=== PATIENT | female | born 1950 | race Two or more races ===

== ENCOUNTER → 2021-06-29 12:13 | Outpatient (BNVA) | payer OTHER, SELFPAY | PROVIDERS: Visit Provider Hospitalist | DX: G47.33 Obstructive sleep apnea (adult) (pediatric) (principal); J98.4 Other disorders of lung; J45.40 Moderate persistent asthma, uncomplicated; R51.9 Headache, unspecified | CPT/HCPCS: 99202 ==

== ENCOUNTER → 2021-07-27 13:30 | Outpatient (REF) | payer OTHER, SELFPAY | LOC: HO.SL 13:30 | PROVIDERS: Visit Provider Hospitalist | DX: G47.33 Obstructive sleep apnea (adult) (pediatric) (principal) | CPT/HCPCS: 95806 ==

== ENCOUNTER 2021-09-27 10:11 | Emergency (ER) | payer OTHER, SELFPAY ==
--- NOTE | ~2021-09-27 | CT_ITS ---
EXAMINATION: CT HEAD WITHOUT CONTRAST CLINICAL INFORMATION: Weakness, dizziness. COMPARISON: None TECHNIQUE: Contiguous axial imaging was performed from the skull base to vertex without intravenous administration of contrast. This CT examination was performed using dose optimization techniques as appropriate, variously including the following: *Automated exposure control *Adjustment of mA and/or kV according to patient size (this includes techniques or standardized protocols for targeted exams where dose is matched to indication/reason for exam; i.e. extremities or head) *Use of iterative reconstruction technique DLP: 588 mGy-cm FINDINGS: There is no evidence of acute intracranial hemorrhage or territorial infarction. No abnormal mass effect or midline shift is seen. Hypoattenuation with loss of veloz-white differentiation mild encephalomalacia in the left frontal lobe which could represent a remote infarct or post-surgical change. Otherwise, the veloz to white matter differentiation is well preserved. No extra-axial fluid collections are identified. The ventricles are normal in size. There is no abnormal attenuation within the brain parenchyma. Post-surgical change at the left frontotemporal calvarium. The osseous structures and soft tissues are otherwise normal. The mastoid air cells and visualized portions of the paranasal sinuses are well aerated. CT/CT head/brain wo con IMPRESSION: No acute intracranial hemorrhage or mass effect. Left frontotemporal calvarial post-surgical change with adjacent encephalomalacia and loss of veloz-white differentiation which could represent a remote infarct versus post-surgical change. Otherwise, the veloz-white differentiation is maintained.
--- NOTE | ~2021-09-27 | XR_ITS ---
EXAMINATION: XR CHEST CLINICAL INFORMATION: Weakness, dizziness COMPARISON: None TECHNIQUE: 2 views of the chest were obtained. FINDINGS: Lungs are clear. No focal consolidation or mass. Normal pulmonary vascularity. No pleural effusion or pneumothorax. Normal heart size. Osteopenia and mild degenerative changes of the thoracic spine. XR/XR chest 2V IMPRESSION: No acute pulmonary disease.
[2021-09-27 10:19] VITALS: BP 179/83; BP 188/90; PULSE 85; PULSE 98; RESP 18; TEMP 36.7; O2SAT 97; O2SAT 98; BMI 39.8
--- NOTE | 2021-09-27 10:19 | ED_ITS ---
HPI - General Adult General Chief complaint: Weakness Stated complaint: WEAKNESS,HBP Time Seen by Provider: 09/27/21 10:19 Source: patient and EMS Mode of arrival: EMS Limitations: no limitations History of Present Illness HPI narrative: Patient is a 71 year old female presenting to the emergency department today with weakness. Patient states that she has an extensive history of dizziness and takes meclizine. Patient states that this morning, she felt more weak and has been very stressed. Patient states that her son who was in his 30s, just and his is today. Patient denies any lightheadedness, abdominal pain, nausea, vomiting, fever, chills, blurry vision, double vision, loss of vision, chest pain, difficulty breathing, shortness of breath, back pain, night sweats, pain with urination, increased urinary frequency, increased urinary urgency, blood in her urine or stool, syncope or a near syncopal episode, recent trauma or falls, bowel incontinence, bladder incontinence, bowel retention, bladder retention, or any other complaints at this time. Onset (ago): hour(s) Severity: mild Severity scale (1-10): 1 Relieving factors: none Exacerbating factors: none Associated symptoms: denies other symptoms Treatments prior to arrival: none Related Data Home Medications Medication Instructions Recorded Confirmed atorvastatin 10 mg tablet 10 mg PO DAILY 06/29/21 betamethasone dipropionate 0.05 % topical 06/29/21 topical ointment calcipotriene 0.005 % topical topical 06/29/21 ointment cholecalciferol (vitamin D3) 25 25 mcg PO DAILY 06/29/21 mcg (1,000 unit) capsule cyanocobalamin (vitamin B-12) 1,000 mcg PO DAILY 06/29/21 1,000 mcg tablet (Vitamin B-12) fluticasone furoate 100 1 ea inhalation DAILY 06/29/21 mcg-vilanterol 25 mcg/dose inhalation powder (Breo Ellipta) folic acid 1 mg tablet 1 mg PO DAILY 06/29/21 glucosamine sulfate 500 1 cap PO DAILY 06/29/21 mg-chondroitin 250 mg-msm 250 mg capsule latanoprost 0.005 % eye drops 0 drp ophthalmic (eye) 06/29/21 lorazepam 1 mg tablet 0.5 mg PO BID PRN anxiety 06/29/21 meclizine 25 mg tablet 25 mg PO BEDTIME 06/29/21 methotrexate sodium 2.5 mg tablet 15 mg PO QWEEK 06/29/21 Previous Rx's Medication Instructions Recorded albuterol sulfate 90 mcg/actuation 2 puff inhalation QID PRN 06/29/21 aerosol inhaler (Ventolin HFA) shortness of breath or wheezing 30 days #18 grams montelukast 10 mg tablet 10 mg PO DAILY 30 days #30 tabs 06/29/21 cephalexin 500 mg capsule 500 mg PO Q6H 7 days #28 caps 09/27/21 Allergies Allergy/AdvReac Type Severity Reaction Status Date / Time Iodinated Contrast Media Allergy Shortness Verified 09/27/21 10:28 [Contrast Dye] of Breath SEAFOOD Allergy Severe HIVES Uncoded 06/29/21 13:01 Review of Systems Constitutional: Constitutional: Reports no additional constitutional complaints, Denies chills, Denies fever(s), Denies night sweats and Reports weakness Eyes: Eyes: Reports no additional eye complaints, Denies blurry vision, Denies change in vision, Denies diplopia, Denies eye discharge, Denies loss of vision and Denies eye pain ENT: Denies dizziness Cardiovascular: Cardiovascular: Reports no additional cardiovascular complaints, Denies chest pain, Denies lightheadedness, Denies Loss of Consciousness and Denies dyspnea Respiratory: Respiratory: Reports no additional respiratory complaints and Denies dyspnea Gastrointestinal: Gastrointestinal: Reports no additional gastrointestinal complaints, Denies abdominal pain, Denies melena, Denies hematochezia, Denies change in bowel habits and Denies change in stool character Genitourinary: Genitourinary: Denies hematuria, Denies urinary frequency, Denies dysuria, Denies urinary incontinence, Denies urinary hesitancy and Denies urinary urgency Musculoskeletal: Musculoskeletal: Reports no additional musculoskeletal complaints, Denies numbness and Denies tingling Neurologic: Denies dizziness, Denies loss of vision, Denies numbness, Denies tingling and Reports weakness Psychiatric: Psychiatric: Reports no additional psychiatric complaints Endocrine: Endocrine: Reports no additional endocrine complaints Hematologic/Lymphatic: Hematologic/Lymphatic: Reports no additional hematologic/lymphatic complaints Allergic/Immunologic: Allergic/Immunologic: Reports no additional allergic/immunologic complaints PMFSH Past Medical History Attestation statement: The following information was validated with the patient. Source: old records reviewed Medical History Psoriasis Psoriasis Pulmonary embolism, bilateral Social History Social History Alcohol intake: never Patient Tobacco Use Status: Never used Tobacco Use of substances other than those prescribed or required for medical reasons: No Advance Directives: No Advance Directives Information Provided: No Physical Exam ED Vital Signs: Vital Signs - 24 hr 09/27/21 10:19 09/27/21 12:21 Temperature 98.1 F Pulse Rate 85 60 Respiratory Rate 18 17 Blood Pressure 179/83 H 160/58 H Pulse Oximetry 97 97 Oxygen Delivery Method Room Air Room Air BMI result Body Mass Index 39.8 Const General: cooperative, no acute distress, alert and awake Nutritional Appearance: well nourished Orientation/consciousness: patient oriented x3 Limitations: no limitations HENMT Head: Yes normal to inspection and Yes atraumatic Ears: hearing grossly normal bilaterally and external ears normal General nose exam: Normal external nose present, no nasal discharge noted and no epistaxis Face and sinus: Yes normal facial exam, No abrasion and No laceration Mouth: Normal oral and palatal mucosa present, no drooling and no muffled voice Eyes General: appearance normal, both eyes and all related structures Periorbital: periorbital findings normal Eyelids: Yes eyelids normal Conjunctivae: conjunctivae normal Pupils: Equal, round and reactive pupils present EOM: EOMs intact bilaterally Neck Neck: Yes normal visual inspection, Yes full ROM and Yes no lymphadenopathy Chest Chest palpation & inspection: normal inspection of the chest Resp Effort & Inspection: normal respiratory effort and able to speak in complete sentences Auscultation: clear to auscultation bilaterally Cardio Rate: regular rate Rhythm: regular rhythm GI Inspection: Yes normal to inspection Neuro General: patient oriented x3 and moves all extremities Cranial nerves: Yes Equal, round and reactive pupils present Cognition (Neuro): normal cognition Motor exam (neuro): 5/5 motor strength present throughout Sensory Exam: Normal double simultaneous stimulation for sensation Coordination: [id number] test normal Extrem General: Yes normal to inspection, Yes full ROM and Yes capillary refill normal Psych Appearance: grossly normal Mental Status: mental status grossly normal Affect: normal affect Attitude: cooperative Thought process: Normal thought process present Thought content: Normal thought content present Insight: Good insight present (Psych) Medical Decision Making MDM Narrative Medical decision making narrative: Patient is a 71 year old female presenting to the emergency department today with weakness. Patient's physical exam was unremarkable. Patient's blood work was unremarkable. Patient's urine showed an acute urinary tract infection. Patient's EKG was unremarkable. Patient's chest x-ray showed no acute process. Patient's head CT showed evidence of a previous surgery which the patient confirmed in her history. I explained my physical exam findings as well as all test results to the patient. I answered all questions asked by the patient. I stressed the importance of the patient taking her medication as prescribed. I stressed the importance of the patient following up with her primary care provider. I stressed the importance of the patient returning to the emergency department immediately if her symptoms were to worsen or if she were to develop any dizziness, shortness of breath, difficulty breathing, chest pain, blurry vision, loss of vision, nausea, vomiting, abdominal pain, fever, chills, back pain, or any other complaints. Patient verbalized agreement and understanding with this treatment plan and discharge. Differential Diagnosis Differential Diagnosis: weakness, UTI Medical Records Medical records reviewed: Yes I reviewed the patient's medical records. Lab Data Lab results reviewed: Yes I reviewed the patient's lab results. Result diagrams: 09/27/21 11:03 09/27/21 11:03 Labs: Lab Results 09/27/21 09/27/21 09/27/21 Range/Units 10:33 11:03 11:03 WBC 7.3 (4.8-10.8) X10*3/uL RBC 4.24 (4.20-5.50) X10*6/uL Hgb 12.8 (12.0-16.0) g/dl Hct 39.1 (37.0-47.0) % MCV 92.2 (80.0-98.0) fL MCH 30.2 (27.0-33.0) pg MCHC 32.7 (31.0-35.0) g/dl RDW 13.0 (11.0-16.0) % Plt Count 268 (160-400) X10*3/uL MPV 10.5 (9.4-12.3) fL Immature Gran % (Auto) 0.4 (0.0-0.4) % Neut % (Auto) 70.8 (45-73) % Lymph % (Auto) 17.9 L (20-40) % [place] % (Auto) 9.2 (2-11) % Eos % (Auto) 1.0 (0-4) % Baso % (Auto) 0.7 (0-2) % Lymph # (Auto) 1.3 (1.2-4.9) X10*3/uL [place] # (Auto) 0.7 (0.1-1.2) X10*3/uL Eos # (Auto) 0.1 (0.0-0.4) X10*3/uL Baso # (Auto) 0.1 (0.0-0.2) X10*3/uL Abs Immat Gran (auto) 0.03 (0.00-0.03) X10*3/uL Absolute Neuts (auto) 5.1 (2.0-8.3) x10*3/uL Absolute Nucleated RBC 0.000 (0.0-0.012) X10*3/uL Nucleated RBC % (auto) 0.0 (0.0-0.2) /100WBC Sodium 138 (135-145) mmol/L Potassium 4.8 (3.3-5.1) mmol/L Chloride 105 (96-108) mmol/L Carbon Dioxide 27 (22-29) mmol/L Anion Gap 11 L (12-20) BUN 24 H (9-16) mg/dL Creatinine 0.90 (0.5-1.4) mg/dL Estim Creat Clear Calc 57.4 Estimated GFR > 60 Random Glucose 99 (60-115) mg/dL Calcium 9.4 (8.4-10.2) mg/dL Magnesium 1.9 (1.6-2.6) mg/dL Total Bilirubin 0.3 (0.0-1.0) mg/dL AST 21 (5-31) U/L ALT 20 (0-31) U/L Alkaline Phosphatase 62 (39-117) U/L Troponin I High Sens (<3.5-17.0) ng/L Total Protein 7.3 (6.5-8.0) g/dL Albumin 4.3 (3.5-5.0) g/dL Urine Color Urine Appearance Urine pH (5.0-8.0) Ur Specific [place] (1.005-1.025) Urine Protein (NEG-TRACE) MG/DL Urine Glucose (UA) (NEG) MG/DL Urine Ketones (NEG) MG/DL Urine Blood (NEG) Urine Nitrite (NEG) Ur Leukocyte Esterase (NEG) Urine RBC (0) /HPF Urine WBC (0-4) /HPF Ur Squamous Epith Cells /LPF Urine Bacteria /LPF COVID-19 ([facility]) Negative (Negative) COVID-19 Clin Com See Note 09/27/21 09/27/21 Range/Units 11:03 12:26 WBC (4.8-10.8) X10*3/uL RBC (4.20-5.50) X10*6/uL Hgb (12.0-16.0) g/dl Hct (37.0-47.0) % MCV (80.0-98.0) fL MCH (27.0-33.0) pg MCHC (31.0-35.0) g/dl RDW (11.0-16.0) % Plt Count (160-400) X10*3/uL MPV (9.4-12.3) fL Immature Gran % (Auto) (0.0-0.4) % Neut % (Auto) (45-73) % Lymph % (Auto) (20-40) % [place] % (Auto) (2-11) % Eos % (Auto) (0-4) % Baso % (Auto) (0-2) % Lymph # (Auto) (1.2-4.9) X10*3/uL [place] # (Auto) (0.1-1.2) X10*3/uL Eos # (Auto) (0.0-0.4) X10*3/uL Baso # (Auto) (0.0-0.2) X10*3/uL Abs Immat Gran (auto) (0.00-0.03) X10*3/uL Absolute Neuts (auto) (2.0-8.3) x10*3/uL Absolute Nucleated RBC (0.0-0.012) X10*3/uL Nucleated RBC % (auto) (0.0-0.2) /100WBC Sodium (135-145) mmol/L Potassium (3.3-5.1) mmol/L Chloride (96-108) mmol/L Carbon Dioxide (22-29) mmol/L Anion Gap (12-20) BUN (9-16) mg/dL Creatinine (0.5-1.4) mg/dL Estim Creat Clear Calc Estimated GFR Random Glucose (60-115) mg/dL Calcium (8.4-10.2) mg/dL Magnesium (1.6-2.6) mg/dL Total Bilirubin (0.0-1.0) mg/dL AST (5-31) U/L ALT (0-31) U/L Alkaline Phosphatase (39-117) U/L Troponin I High Sens < 3.5 (<3.5-17.0) ng/L Total Protein (6.5-8.0) g/dL Albumin (3.5-5.0) g/dL Urine Color YELLOW Urine Appearance HAZY Urine pH 6.5 (5.0-8.0) Ur Specific [place] <= 1.005 (1.005-1.025) Urine Protein NEG (NEG-TRACE) MG/DL Urine Glucose (UA) NEG (NEG) MG/DL Urine Ketones NEG (NEG) MG/DL Urine Blood NEG (NEG) Urine Nitrite NEG (NEG) Ur Leukocyte Esterase 2+ H (NEG) Urine RBC 0 (0) /HPF Urine WBC 5-9 H (0-4) /HPF Ur Squamous Epith Cells 1+ /LPF Urine Bacteria TRACE /LPF COVID-19 ([facility]DRA) (Negative) COVID-19 Clin Com Imaging Data Chest x-ray: Attestation: I personally reviewed and interpreted this imaging study as follows: My impression: No acute process. Radiologist's impression: EXAMINATION: XR CHEST CLINICAL INFORMATION: Weakness, dizziness COMPARISON: None TECHNIQUE: 2 views of the chest were obtained. FINDINGS: Lungs are clear. No focal consolidation or mass. Normal pulmonary vascularity. No pleural effusion or pneumothorax.? Normal heart size. Osteopenia and mild degenerative changes of the thoracic spine. XR/XR chest 2V IMPRESSION: No acute pulmonary disease. Dictated By: Matthew Albright MD Signed By: Electronically signed by Matthew Albright MD 09/27/[address] scan - head: Attestation: I personally reviewed and interpreted this imaging study as follows: My impression: Post-surgical changes but no acute process. Radiologist's impression: EXAMINATION: CT HEAD WITHOUT CONTRAST CLINICAL INFORMATION: Weakness, dizziness.? COMPARISON: None TECHNIQUE: Contiguous axial imaging was performed from the skull base to vertex without intravenous administration of contrast. This CT examination was performed using dose optimization techniques as appropriate, variously including the following: *Automated exposure control *Adjustment of mA and/or kV according to patient size (this includes techniques or standardized protocols for targeted exams where dose is matched to indication/reason for exam; i.e. extremities or head) *Use of iterative reconstruction technique DLP: 588 mGy-cm FINDINGS: There is no evidence of acute intracranial hemorrhage or territorial infarction. No abnormal mass effect or midline shift is seen. Hypoattenuation with loss of veloz-white differentiation mild encephalomalacia in the left frontal lobe which could represent a remote infarct or post-surgical change. Otherwise, the veloz to white matter differentiation is well preserved. No extra-axial fluid collections are identified. The ventricles are normal in size. There is no abnormal attenuation within the brain parenchyma. Post-surgical change at the left frontotemporal calvarium. The osseous structures and soft tissues are otherwise normal. The mastoid air cells and visualized portions of the paranasal sinuses are well aerated. ? CT/CT head/brain wo con IMPRESSION: No acute intracranial hemorrhage or mass effect. ? Left frontotemporal calvarial post-surgical change with adjacent encephalomalacia and loss of vleoz-white differentiation which could represent a remote infarct versus post-surgical change. Otherwise, the veloz-white differentiation is maintained. Dictated By: Jt Terry MD Signed By: Electronically signed by Jt Terry MD 09/27/21 1232 ECG Data Attestation: I personally reviewed and interpreted this ECG as follows: Prior ECG tracings: available for review Interpretation: Vent. Rate: 068 BPM ? ? Atrial Rate: 068 BPM P-R Int: 136 ms? QRS Dur: 078 ms QT Int: 400 ms ? ? ? P-R-T Axes: 037 029 051 degrees QTc Int: 425 ms ? Sinus rhythm with Premature atrial complexes Otherwise normal ECG When compared with ECG of 01-JUL-2016 10:00, Premature atrial complexes are now Present DD/ [id number] Discharge Plan Discharge Clinical Impression: Acute UTI Patient Disposition: Home, Self-Care Instructions: Urinary Tract Infection in Older Adults (ED) Additional Instructions: Follow up with your primary care provider. Return to the emergency department immediately if your symptoms worsen or if you develop any dizziness, shortness of breath, difficulty breathing, chest pain, blurry vision, loss of vision, nausea, vomiting, abdominal pain, fever, chills, back pain, or any other complaints. Prescriptions: New cephalexin 500 mg capsule 500 mg PO Q6H 7 Days Qty: 28 0RF No Action folic acid 1 mg tablet 1 mg PO DAILY latanoprost 0.005 % drops 0 drp ophthalmic (eye) Breo Ellipta 100-25 mcg/dose blister with device 1 ea inhalation DAILY cyanocobalamin (vitamin B-12) [Vitamin B-12] 1,000 mcg tablet 1,000 mcg PO DAILY atorvastatin 10 mg tablet 10 mg PO DAILY lorazepam 1 mg tablet 0.5 mg PO BID PRN (Reason: anxiety) meclizine 25 mg tablet 25 mg PO BEDTIME calcipotriene 0.005 % ointment topical betamethasone dipropionate 0.05 % ointment topical methotrexate sodium 2.5 mg tablet 15 mg PO QWEEK cholecalciferol (vitamin D3) 25 mcg (1,000 unit) capsule 25 mcg PO DAILY glucosamine [id number] 500-250-250 mg capsule 1 cap PO DAILY albuterol sulfate [Ventolin HFA] 90 mcg/actuation HFA aerosol inhaler 2 puff inhalation QID PRN (Reason: shortness of breath or wheezing) 30 Days Qty: 18 11RF montelukast 10 mg tablet 10 mg PO DAILY 30 Days Qty: 30 11RF Referrals: [facility] Family Medicine [Provider Group] (Call to establish and follow up with a primary care provider. If you already have a primary care provider, please follow up with them. ) [facility] [Provider Group] (Call to establish and follow up with a primary care provider. If you already have a primary care provider, ple ase follow up with them. ) [facility] [Provider Group] (Call to establish and follow up with a primary care provider. If you already have a primary care provider, please follow up with them. ) Interventions: ED Discharge Assessment Last Done: 09/27/21 13:03 Discharge Date/Time: 09/27/21 13:04 Print Language: Italian
--- NOTE | 2021-09-27 10:26 | ECG_ITS ---
Test Reason : weakness Blood Pressure : / mmHG Vent. Rate : 068 BPM Atrial Rate : 068 BPM P-R Int : 136 ms QRS Dur : 078 ms QT Int : 400 ms P-R-T Axes : 037 029 051 degrees QTc Int : 425 ms Sinus rhythm with Premature atrial complexes Otherwise normal ECG When compared with ECG of 01-JUL-2016 10:00, Premature atrial complexes are now Present Referred By: Kandis Dominguez Electronically Signed By:DOUGIE DOTY MD
[2021-09-27 10:58] LABS: COVID-19 Test Negative (Negative); IDNOW Serial# 16C4AD1C
[2021-09-27 11:08] LABS: MANUAL DIFF FLAG NO
[2021-09-27 11:10] LABS: Basophils Absolute Auto 0.1 X10*3/uL (0.0-0.2); Basophils Percent Auto 0.7 % (0-2); Eosinophils Absolute Auto 0.1 X10*3/uL (0.0-0.4); Hematocrit 39.1 % (37.0-47.0); Hemoglobin 12.8 g/dl (12.0-16.0); Imm Gran Abs Auto 0.03 X10*3/uL (0.00-0.03); Imm Gran Pct Auto 0.4 % (0.0-0.4); Lymphocytes Absolute Auto 1.3 X10*3/uL (1.2-4.9); Lymphocytes Percent Auto 17.9 % (20-40); Mean Corpuscular HGB Conc 32.7 g/dl (31.0-35.0); Mean Corpuscular Hemoglobin 30.2 pg (27.0-33.0); Mean Corpuscular Volume 92.2 fL (80.0-98.0); Mean Platelet Volume 10.5 fL (9.4-12.3); Monocytes Absolute Auto 0.7 X10*3/uL (0.1-1.2); Monocytes Percent Auto 9.2 % (2-11); Neutrophils Absolute Auto 5.1 x10*3/uL (2.0-8.3); Neutrophils Percent Auto 70.8 % (45-73); Platelet Count 268 X10*3/uL (160-400); Red Blood Count 4.24 X10*6/uL (4.20-5.50); White Blood Count 7.3 X10*3/uL (4.8-10.8)
--- NOTE | 2021-09-27 11:27 | PC.NURSE ---
Pt alert/oriented, neuros intact PERRLA bilat. General weakness since this morning. Per daughter, pt hx anxiety and panic attacks with recent life stressor of grandson's passing symptoms seem to be related to this event. NSR on monitor with occasional PACs. IV established labs drawn.
[2021-09-27 11:32] LABS: Alanine Aminotransferase 20 U/L (0-31); Albumin Level 4.3 g/dL (3.5-5.0); Alkaline Phosphatase 62 U/L (39-117); Anion Gap 11 (12-20); Aspartate Amino Transferase 21 U/L (5-31); Bilirubin Total 0.3 mg/dL (0.0-1.0); Blood Urea Nitrogen 24 mg/dL (9-16); Calcium 9.4 mg/dL (8.4-10.2); Carbon Dioxide 27 mmol/L (22-29); Chloride 105 mmol/L (96-108); Creatinine Clr Calc Pharmacy 57.4; Estimated Glomerular Filt Rate > 60; Glucose Random 99 mg/dL (60-115); Magnesium 1.9 mg/dL (1.6-2.6); Potassium 4.8 mmol/L (3.3-5.1); Sodium 138 mmol/L (135-145); Total Protein 7.3 g/dL (6.5-8.0)
[2021-09-27 11:36] LABS: Troponin-I High Sensitivity < 3.5 ng/L (<3.5-17.0)
[2021-09-27 12:21] VITALS: BP 160/58; PULSE 60; RESP 17; O2SAT 97
[2021-09-27 12:32] LABS: Glucose Urine UA NEG (NEG); Leukocyte Esterase Urine 2+ (NEG); Nitrite Urine NEG (NEG); PH 6.5 (5.0-8.0); Specific Gravity - Urine <= 1.005 (1.005-1.025); UACC Culture Trigger YES; Urine Blood NEG (NEG); Urine Ketones NEG (NEG); Urine Protein NEG (NEG-TRACE)
[2021-09-27 12:34] LABS: Appearance Urine HAZY; Color Urine YELLOW
[2021-09-27 12:44] LABS: Bacteria Urine TRACE /LPF; RBC Urine 0 /HPF (0)
[2021-09-27 12:45] LABS: Squamous Epithelial Cell Urine 1+ /LPF
== END 2021-09-27 13:04 | disposition home or self-care (01) ==
PROVIDERS: Physician Assistant Medical; Emergency Provider Emergency Medicine
DX: N39.0 Urinary tract infection, site not specified (principal); R53.1 Weakness; R42 Dizziness and giddiness; R07.89 Other chest pain; Z20.822 Contact with and (suspected) exposure to COVID-19; Z79.899 Other long term (current) drug therapy
CPT/HCPCS: 70450; 71046; 80053; 81001; 83735; 84484; 85025; 87086; 87502; 87635; 93005; 99284

== ENCOUNTER → 2021-12-29 12:33 | Outpatient (BNVA) | payer OTHER, SELFPAY | PROVIDERS: PCP Internal Medicine; Visit Provider Hospitalist | DX: J45.40 Moderate persistent asthma, uncomplicated (principal); J98.4 Other disorders of lung; J31.0 Chronic rhinitis; R51.9 Headache, unspecified | CPT/HCPCS: 99212 ==

== ENCOUNTER 2022-04-18 15:19 | Emergency (ER) | payer OTHER, SELFPAY ==
--- NOTE | ~2022-04-18 | XR_ITS ---
EXAMINATION: XR CHEST CLINICAL INFORMATION: Cough COMPARISON: Chest x-ray 09/27/2021 TECHNIQUE: Frontal view of the chest was obtained. FINDINGS: The lungs are clear. No airspace consolidation, pleural effusion, or pneumothorax. The cardiomediastinal silhouette is within normal limits. No acute osseous injury. XR/XR chest 1V IMPRESSION: No acute pulmonary disease.
[2022-04-18 15:30] VITALS: BP 196/93; PULSE 89; RESP 18; TEMP 36.3; O2SAT 100; BMI 36.7
--- NOTE | 2022-04-18 15:34 | ECG_ITS ---
Test Reason : DIZZINESS Blood Pressure : / mmHG Vent. Rate : 082 BPM Atrial Rate : 082 BPM P-R Int : 124 ms QRS Dur : 072 ms QT Int : 366 ms P-R-T Axes : 039 018 044 degrees QTc Int : 427 ms Normal sinus rhythm Nonspecific ST abnormality Abnormal ECG When compared with ECG of 27-SEP-2021 10:59, Premature atrial complexes are no longer Present Referred By: Sherly Nice Electronically Signed By:Jerry Hu
--- NOTE | 2022-04-18 15:34 | ED.GENADULT ---
HPI - General Adult General Chief complaint: General Medical <SOPHY Palma - Last Filed: 04/18/22 15:36> Stated complaint: high blood pressure, dizzy, shaky <SOPHY Palma - Last Filed: 04/18/22 15:36> Time Seen by Provider: 04/18/22 16:20 <SOPHY Palma - Last Filed: 04/18/22 15:36> Source: patient <Mahendra Neville MD - Last Filed: 04/19/22 00:59> Mode of arrival: ambulatory <Mahendra Neville MD - Last Filed: 04/19/22 00:59> Limitations: no limitations <Mahendra Neville MD - Last Filed: 04/19/22 00:59> History of Present Illness HPI narrative: Patient history of hypertension on losartan for last 1 year checks her blood pressure daily for last 3 days blood pressures been elevated in 170s range today blood pressure was 196/90 no chest pain no headache patient does have cold symptoms for last 3 days no shortness of breath no palpitation also noticed slight leg edema on arrival today patient blood pressure was 196/93 with pulse rate of 89 <Mahendra Neville MD - Last Filed: 04/19/22 00:59> Related Data Home medications: Home Medications Medication Instructions Recorded Confirmed atorvastatin 10 mg tablet 10 mg PO DAILY 06/29/21 cholecalciferol (vitamin D3) 25 25 mcg PO DAILY 06/29/21 mcg (1,000 unit) capsule cyanocobalamin (vitamin B-12) 1,000 mcg PO DAILY 06/29/21 1,000 mcg tablet (Vitamin B-12) folic acid 1 mg tablet 1 mg PO DAILY 06/29/21 glucosamine sulfate 500 1 cap PO DAILY 06/29/21 mg-chondroitin 250 mg-msm 250 mg capsule latanoprost 0.005 % eye drops 0 drp ophthalmic (eye) 06/29/21 lorazepam 1 mg tablet 0.5 mg PO BID PRN anxiety 06/29/21 meclizine 25 mg tablet 25 mg PO BEDTIME 06/29/21 methotrexate sodium 2.5 mg tablet 15 mg PO QWEEK 06/29/21 albuterol sulfate 2.5 mg/3 mL mg inhalation 12/29/21 (0.083 %) solution for nebulization betamethasone, augmented 0.05 % topical 12/29/21 topical ointment celecoxib 200 mg capsule 200 mg PO DAILY 12/29/21 losartan 50 mg tablet 50 mg PO DAILY 12/29/21 triamcinolone acetonide 0.1 % topical BID PRN 12/29/21 lotion Previous Rx's Medication Instructions Recorded albuterol sulfate 90 mcg/actuation 2 puff inhalation QID PRN 06/29/21 aerosol inhaler (Ventolin HFA) shortness of breath or wheezing 30 days #18 grams montelukast 10 mg tablet 10 mg PO DAILY 30 days #30 tabs 06/29/21 albuterol sulfate 90 mcg/actuation 2 puff inhalation QID PRN 12/29/21 aerosol inhaler (Ventolin HFA) shortness of breath or wheezing 30 days #18 grams fluticasone furoate 100 1 ea inhalation DAILY #60 ea 12/29/21 mcg-vilanterol 25 mcg/dose inhalation powder (Breo Ellipta) fluticasone propionate 50 2 spray intranasal DAILY 30 days 12/29/21 mcg/actuation nasal #15.8 mL spray,suspension loratadine 10 mg tablet (Claritin) 10 mg PO DAILY 30 days #30 tabs 12/29/21 hydrochlorothiazide 25 mg tablet 25 mg PO QAM #30 tabs 04/18/22 <SOPHY Palma - Last Filed: 04/18/22 15:36> Allergies/adverse reactions: Allergies Allergy/AdvReac Type Severity Reaction Status Date / Time Iodinated Contrast Media Allergy Shortness Verified 04/18/22 15:34 [Contrast Dye] of Breath SEAFOOD Allergy Severe HIVES Uncoded 12/29/21 12:58 <SOPHY Palma - Last Filed: 04/18/22 15:36> Review of Systems Review of Systems: Yes all other systems are reviewed and are negative <Mahendra Neville MD - Last Filed: 04/19/22 00:59> PMFSH Past Medical History Medical History: Medical History Asthma Frequent headaches Psoriasis Psoriasis Pulmonary embolism, bilateral Pulmonary scarring <SOPHY Palma - Last Filed: 04/18/22 15:36> Social History Social History: Social History Alcohol intake: never Patient Tobacco Use Status: Never used Tobacco Advance Directives: No Advance Directives Information Provided: No <SOPHY Palma - Last Filed: 04/18/22 15:36> Physical Exam ED Vital Signs: Vital Signs - 24 hr 04/18/22 15:30 04/18/22 17:38 04/18/22 18:33 Temperature 97.4 F 98.1 F Pulse Rate 89 74 Respiratory Rate 18 20 Blood Pressure 196/93 H 179/89 H 157/56 H Pulse Oximetry 100 97 Oxygen Delivery Method Room Air Room Air BMI result Body Mass Index 36.7 <SOPHY Palma - Last Filed: 04/18/22 15:36> Vital Signs - 24 hr 04/18/22 15:30 04/18/22 17:38 04/18/22 18:33 Temperature 97.4 F 98.1 F Pulse Rate 89 74 Respiratory Rate 18 20 Blood Pressure 196/93 H 179/89 H 157/56 H Pulse Oximetry 100 97 Oxygen Delivery Method Room Air Room Air BMI result Body Mass Index 36.7 <Mahendra Neville MD - Last Filed: 04/19/22 00:59> Appearance: Alert. Oriented X3. No acute distress. Eyes: No pallor/icterus ENT: Pharynx normal. Oral Mucosa moist Neck: Normal inspection. Neck supple. CVS: Normal heart rate and rhythm. Pulses normal. Respiratory: No respiratory distress. Equal air entry bilateral, no wheezing/rales/rhonchi Abdomen: Soft and nontender. Bowel sounds are present, no mass palpable, no CVA tenderness Skin: Skin warm and dry. Normal skin color. Normal skin turgor. Extremities: 1= lower extremity edema. No calf tenderness Neuro: Oriented X 3. No motor deficit. No sensory deficit.No cerebellar signs , cranial nerves II-XII intact <Mahendra Neville MD - Last Filed: 04/19/22 00:59> Course Course Course Narrative: RME - 71 yo female with history of HTN on losartan, CHARLES, asthma, headaches who presents to the ER for evaluation of elevated BP at home for the last 3 days. Also reports headaches, runny nose, shakiness and dizziness as well. BP 190s systolic on arrival, compliant with meds. Labs, EKG, CXR, swabs ordered. <SOPHY Palma - Last Filed: 04/18/22 15:36> Medications Administered Discontinued Medications Generic Name Dose Route Start Last Admin Trade Name Freq PRN Reason Stop Dose Admin Hydrochlorothiazide 25 mg 04/18/22 17:27 04/18/22 17:38 Hydrochlorothiazide 25 Mg Tablet PO 04/18/22 17:28 25 mg ONCE ONE Administration Protocol <SOPHY Palma - Last Filed: 04/18/22 15:36> Medications Administered Discontinued Medications Generic Name Dose Route Start Last Admin Trade Name Freq PRN Reason Stop Dose Admin Hydrochlorothiazide 25 mg 04/18/22 17:27 04/18/22 17:38 Hydrochlorothiazide 25 Mg Tablet PO 04/18/22 17:28 25 mg ONCE ONE Administration Protocol <Mahendra Neville MD - Last Filed: 04/19/22 00:59> Medical Decision Making Medical Decision Making MDM Narrative: Patient has slightly elevated blood pressure with leg edema labs were stable will add hydrochlorothiazide to the protocol advised to continue losartan and take hydrochlorothiazide 25 mg daily and follow-up with PCP <Mahendra Neville MD - Last Filed: 04/19/22 00:59> Lab Data MDM Lab Attestation statement: I reviewed the patient's lab results. <Mahendra Neville MD - Last Filed: 04/19/22 00:59> Result Diagrams: 04/18/22 16:21 04/18/22 16:21 <SOPHY Palma - Last Filed: 04/18/22 15:36> Labs: Lab Results 04/18/22 04/18/22 04/18/22 Range/Units 16:21 16:21 16:21 WBC 7.7 (4.8-10.8) X10*3/uL RBC 4.10 L (4.20-5.50) X10*6/uL Hgb 11.9 L (12.0-16.0) g/dl Hct 37.2 (37.0-47.0) % MCV 90.7 (80.0-98.0) fL MCH 29.0 (27.0-33.0) pg MCHC 32.0 (31.0-35.0) g/dl RDW 12.7 (11.0-16.0) % Plt Count 269 (160-400) X10*3/uL MPV 10.3 (9.4-12.3) fL Immature Gran % (Auto) 0.5 H (0.0-0.4) % Neut % (Auto) 65.6 (45-73) % Lymph % (Auto) 23.7 (20-40) % [place] % (Auto) 6.9 (2-11) % Eos % (Auto) 2.5 (0-4) % Baso % (Auto) 0.8 (0-2) % Lymph # (Auto) 1.8 (1.2-4.9) X10*3/uL [place] # (Auto) 0.5 (0.1-1.2) X10*3/uL Eos # (Auto) 0.2 (0.0-0.4) X10*3/uL Baso # (Auto) 0.1 (0.0-0.2) X10*3/uL Abs Immat Gran (auto) 0.04 H (0.00-0.03) X10*3/uL Absolute Neuts (auto) 5.0 (2.0-8.3) x10*3/uL Absolute Nucleated RBC 0.000 (0.0-0.012) X10*3/uL Nucleated RBC % (auto) 0.0 (0.0-0.2) /100WBC Sodium 144 (135-145) mmol/L Potassium 4.1 (3.3-5.1) mmol/L Chloride 110 H (96-108) mmol/L Carbon Dioxide 27 (22-29) mmol/L Anion Gap 11 L (12-20) BUN 19 H (9-16) mg/dL Creatinine 0.88 (0.5-1.4) mg/dL Estim Creat Clear Calc 56.1 Estimated GFR > 60 Random Glucose 99 (60-115) mg/dL Calcium 9.4 (8.4-10.2) mg/dL Magnesium 1.7 (1.6-2.6) mg/dL Total Bilirubin 0.3 (0.0-1.0) mg/dL Direct Bilirubin < 0.2 (0.0-0.5) mg/dL AST 17 (5-31) U/L ALT 16 (0-31) U/L Alkaline Phosphatase 59 (39-117) U/L Troponin I High Sens 6.2 (<3.5-17.0) ng/L B-Natriuretic Peptide (<100) pg/mL Total Protein 7.1 (6.5-8.0) g/dL Albumin 4.2 (3.5-5.0) g/dL Urine Color Urine Appearance Urine pH (5.0-9.0) Ur Specific [place] (1.005-1.025) Urine Protein (Neg-Trace) mg/dL Urine Glucose (UA) (Negative) mg/dL Urine Ketones (Negative) mg/dL Urine Blood (Negative) Urine Nitrite (Negative) Ur Leukocyte Esterase (Negative) COVID-19 (ALEXSANDRA) (Negative) COVID-19 Clin Com Influenza Type A (PADMINI) (Negative) Influenza Type B (PADMINI) (Negative) Influenza A & B Note 04/18/22 04/18/22 04/18/22 Range/Units 16:21 16:21 16:21 WBC (4.8-10.8) X10*3/uL RBC (4.20-5.50) X10*6/uL Hgb (12.0-16.0) g/dl Hct (37.0-47.0) % MCV (80.0-98.0) fL MCH (27.0-33.0) pg MCHC (31.0-35.0) g/dl RDW (11.0-16.0) % Plt Count (160-400) X10*3/uL MPV (9.4-12.3) fL Immature Gran % (Auto) (0.0-0.4) % Neut % (Auto) (45-73) % Lymph % (Auto) (20-40) % [place] % (Auto) (2-11) % Eos % (Auto) (0-4) % Baso % (Auto) (0-2) % Lymph # (Auto) (1.2-4.9) X10*3/uL [place] # (Auto) (0.1-1.2) X10*3/uL Eos # (Auto) (0.0-0.4) X10*3/uL Baso # (Auto) (0.0-0.2) X10*3/uL Abs Immat Gran (auto) (0.00-0.03) X10*3/uL Absolute Neuts (auto) (2.0-8.3) x10*3/uL Absolute Nucleated RBC (0.0-0.012) X10*3/uL Nucleated RBC % (auto) (0.0-0.2) /100WBC Sodium (135-145) mmol/L Potassium (3.3-5.1) mmol/L Chloride (96-108) mmol/L Carbon Dioxide (22-29) mmol/L Anion Gap (12-20) BUN (9-16) mg/dL Creatinine (0.5-1.4) mg/dL Estim Creat Clear Calc Estimated GFR Random Glucose (60-115) mg/dL Calcium (8.4-10.2) mg/dL Magnesium (1.6-2.6) mg/dL Total Bilirubin (0.0-1.0) mg/dL Direct Bilirubin (0.0-0.5) mg/dL AST (5-31) U/L ALT (0-31) U/L Alkaline Phosphatase (39-117) U/L Troponin I High Sens (<3.5-17.0) ng/L B-Natriuretic Peptide (<100) pg/mL Total Protein (6.5-8.0) g/dL Albumin (3.5-5.0) g/dL Urine Color Yellow Urine Appearance Clear Urine pH 6.0 (5.0-9.0) Ur Specific [place] <= 1.005 (1.005-1.025) Urine Protein Negative (Neg-Trace) mg/dL Urine Glucose (UA) Negative (Negative) mg/dL Urine Ketones Negative (Negative) mg/dL Urine Blood Negative (Negative) Urine Nitrite Negative (Negative) Ur Leukocyte Esterase Negative (Negative) COVID-19 (ALEXSANDRA) Negative (Negative) COVID-19 Clin Com See Note Influenza Type A (PADMINI) Negative (Negative) Influenza Type B (PADMINI) Negative (Negative) Influenza A & B Note See Note 04/18/22 Range/Units 16:21 WBC (4.8-10.8) X10*3/uL RBC (4.20-5.50) X10*6/uL Hgb (12.0-16.0) g/dl Hct (37.0-47.0) % MCV (80.0-98.0) fL MCH (27.0-33.0) pg MCHC (31.0-35.0) g/dl RDW (11.0-16.0) % Plt Count (160-400) X10*3/uL MPV (9.4-12.3) fL Immature Gran % (Auto) (0.0-0.4) % Neut % (Auto) (45-73) % Lymph % (Auto) (20-40) % [place] % (Auto) (2-11) % Eos % (Auto) (0-4) % Baso % (Auto) (0-2) % Lymph # (Auto) (1.2-4.9) X10*3/uL [place] # (Auto) (0.1-1.2) X10*3/uL Eos # (Auto) (0.0-0.4) X10*3/uL Baso # (Auto) (0.0-0.2) X10*3/uL Abs Immat Gran (auto) (0.00-0.03) X10*3/uL Absolute Neuts (auto) (2.0-8.3) x10*3/uL Absolute Nucleated RBC (0.0-0.012) X10*3/uL Nucleated RBC % (auto) (0.0-0.2) /100WBC Sodium (135-145) mmol/L Potassium (3.3-5.1) mmol/L Chloride (96-108) mmol/L Carbon Dioxide (22-29) mmol/L Anion Gap (12-20) BUN (9-16) mg/dL Creatinine (0.5-1.4) mg/dL Estim Creat Clear Calc Estimated GFR Random Glucose (60-115) mg/dL Calcium (8.4-10.2) mg/dL Magnesium (1.6-2.6) mg/dL Total Bilirubin (0.0-1.0) mg/dL Direct Bilirubin (0.0-0.5) mg/dL AST (5-31) U/L ALT (0-31) U/L Alkaline Phosphatase (39-117) U/L Troponin I High Sens (<3.5-17.0) ng/L B-Natriuretic Peptide 109 H (<100) pg/mL Total Protein (6.5-8.0) g/dL Albumin (3.5-5.0) g/dL Urine Color Urine Appearance Urine pH (5.0-9.0) Ur Specific [place] (1.005-1.025) Urine Protein (Neg-Trace) mg/dL Urine Glucose (UA) (Negative) mg/dL Urine Ketones (Negative) mg/dL Urine Blood (Negative) Urine Nitrite (Negative) Ur Leukocyte Esterase (Negative) COVID-19 (ALEXSANDRA) (Negative) COVID-19 Clin Com Influenza Type A (PADMINI) (Negative) Influenza Type B (PADMINI) (Negative) Influenza A & B Note <SOPHY Palma - Last Filed: 04/18/22 15:36> Lab Results 04/18/22 04/18/22 04/18/22 Range/Units 16:21 16:21 16:21 WBC 7.7 (4.8-10.8) X10*3/uL RBC 4.10 L (4.20-5.50) X10*6/uL Hgb 11.9 L (12.0-16.0) g/dl Hct 37.2 (37.0-47.0) % MCV 90.7 (80.0-98.0) fL MCH 29.0 (27.0-33.0) pg MCHC 32.0 (31.0-35.0) g/dl RDW 12.7 (11.0-16.0) % Plt Count 269 (160-400) X10*3/uL MPV 10.3 (9.4-12.3) fL Immature Gran % (Auto) 0.5 H (0.0-0.4) % Neut % (Auto) 65.6 (45-73) % Lymph % (Auto) 23.7 (20-40) % [place] % (Auto) 6.9 (2-11) % Eos % (Auto) 2.5 (0-4) % Baso % (Auto) 0.8 (0-2) % Lymph # (Auto) 1.8 (1.2-4.9) X10*3/uL [place] # (Auto) 0.5 (0.1-1.2) X10*3/uL Eos # (Auto) 0.2 (0.0-0.4) X10*3/uL Baso # (Auto) 0.1 (0.0-0.2) X10*3/uL Abs Immat Gran (auto) 0.04 H (0.00-0.03) X10*3/uL Absolute Neuts (auto) 5.0 (2.0-8.3) x10*3/uL Absolute Nucleated RBC 0.000 (0.0-0.012) X10*3/uL Nucleated RBC % (auto) 0.0 (0.0-0.2) /100WBC Sodium 144 (135-145) mmol/L Potassium 4.1 (3.3-5.1) mmol/L Chloride 110 H (96-108) mmol/L Carbon Dioxide 27 (22-29) mmol/L Anion Gap 11 L (12-20) BUN 19 H (9-16) mg/dL Creatinine 0.88 (0.5-1.4) mg/dL Estim Creat Clear Calc 56.1 Estimated GFR > 60 Random Glucose 99 (60-115) mg/dL Calcium 9.4 (8.4-10.2) mg/dL Magnesium 1.7 (1.6-2.6) mg/dL Total Bilirubin 0.3 (0.0-1.0) mg/dL Direct Bilirubin < 0.2 (0.0-0.5) mg/dL AST 17 (5-31) U/L ALT 16 (0-31) U/L Alkaline Phosphatase 59 (39-117) U/L Troponin I High Sens 6.2 (<3.5-17.0) ng/L B-Natriuretic Peptide (<100) pg/mL Total Protein 7.1 (6.5-8.0) g/dL Albumin 4.2 (3.5-5.0) g/dL Urine Color Urine Appearance Urine pH (5.0-9.0) Ur Specific [place] (1.005-1.025) Urine Protein (Neg-Trace) mg/dL Urine Glucose (UA) (Negative) mg/dL Urine Ketones (Negative) mg/dL Urine Blood (Negative) Urine Nitrite (Negative) Ur Leukocyte Esterase (Negative) COVID-19 (ALEXSANDRA) (Negative) COVID-19 Clin Com Influenza Type A (PADMINI) (Negative) Influenza Type B (PADMINI) (Negative) Influenza A & B Note 04/18/22 04/18/22 04/18/22 Range/Units 16:21 16:21 16:21 WBC (4.8-10.8) X10*3/uL RBC (4.20-5.50) X10*6/uL Hgb (12.0-16.0) g/dl Hct (37.0-47.0) % MCV (80.0-98.0) fL MCH (27.0-33.0) pg MCHC (31.0-35.0) g/dl RDW (11.0-16.0) % Plt Count (160-400) X10*3/uL MPV (9.4-12.3) fL Immature Gran % (Auto) (0.0-0.4) % Neut % (Auto) (45-73) % Lymph % (Auto) (20-40) % [place] % (Auto) (2-11) % Eos % (Auto) (0-4) % Baso % (Auto) (0-2) % Lymph # (Auto) (1.2-4.9) X10*3/uL [place] # (Auto) (0.1-1.2) X10*3/uL Eos # (Auto) (0.0-0.4) X10*3/uL Baso # (Auto) (0.0-0.2) X10*3/uL Abs Immat Gran (auto) (0.00-0.03) X10*3/uL Absolute Neuts (auto) (2.0-8.3) x10*3/uL Absolute Nucleated RBC (0.0-0.012) X10*3/uL Nucleated RBC % (auto) (0.0-0.2) /100WBC Sodium (135-145) mmol/L Potassium (3.3-5.1) mmol/L Chloride (96-108) mmol/L Carbon Dioxide (22-29) mmol/L Anion Gap (12-20) BUN (9-16) mg/dL Creatinine (0.5-1.4) mg/dL Estim Creat Clear Calc Estimated GFR Random Glucose (60-115) mg/dL Calcium (8.4-10.2) mg/dL Magnesium (1.6-2.6) mg/dL Total Bilirubin (0.0-1.0) mg/dL Direct Bilirubin (0.0-0.5) mg/dL AST (5-31) U/L ALT (0-31) U/L Alkaline Phosphatase (39-117) U/L Troponin I High Sens (<3.5-17.0) ng/L B-Natriuretic Peptide (<100) pg/mL Total Protein (6.5-8.0) g/dL Albumin (3.5-5.0) g/dL Urine Color Yellow Urine Appearance Clear Urine pH 6.0 (5.0-9.0) Ur Specific [place] <= 1.005 (1.005-1.025) Urine Protein Negative (Neg-Trace) mg/dL Urine Glucose (UA) Negative (Negative) mg/dL Urine Ketones Negative (Negative) mg/dL Urine Blood Negative (Negative) Urine Nitrite Negative (Negative) Ur Leukocyte Esterase Negative (Negative) COVID-19 (ALEXSANDRA) Negative (Negative) COVID-19 Clin Com See Note Influenza Type A (PADMINI) Negative (Negative) Influenza Type B (PADMINI) Negative (Negative) Influenza A & B Note See Note 04/18/22 Range/Units 16:21 WBC (4.8-10.8) X10*3/uL RBC (4.20-5.50) X10*6/uL Hgb (12.0-16.0) g/dl Hct (37.0-47.0) % MCV (80.0-98.0) fL MCH (27.0-33.0) pg MCHC (31.0-35.0) g/dl RDW (11.0-16.0) % Plt Count (160-400) X10*3/uL MPV (9.4-12.3) fL Immature Gran % (Auto) (0.0-0.4) % Neut % (Auto) (45-73) % Lymph % (Auto) (20-40) % [place] % (Auto) (2-11) % Eos % (Auto) (0-4) % Baso % (Auto) (0-2) % Lymph # (Auto) (1.2-4.9) X10*3/uL [place] # (Auto) (0.1-1.2) X10*3/uL Eos # (Auto) (0.0-0.4) X10*3/uL Baso # (Auto) (0.0-0.2) X10*3/uL Abs Immat Gran (auto) (0.00-0.03) X10*3/uL Absolute Neuts (auto) (2.0-8.3) x10*3/uL Absolute Nucleated RBC (0.0-0.012) X10*3/uL Nucleated RBC % (auto) (0.0-0.2) /100WBC Sodium (135-145) mmol/L Potassium (3.3-5.1) mmol/L Chloride (96-108) mmol/L Carbon Dioxide (22-29) mmol/L Anion Gap (12-20) BUN (9-16) mg/dL Creatinine (0.5-1.4) mg/dL Estim Creat Clear Calc Estimated GFR Random Glucose (60-115) mg/dL Calcium (8.4-10.2) mg/dL Magnesium (1.6-2.6) mg/dL Total Bilirubin (0.0-1.0) mg/dL Direct Bilirubin (0.0-0.5) mg/dL AST (5-31) U/L ALT (0-31) U/L Alkaline Phosphatase (39-117) U/L Troponin I High Sens (<3.5-17.0) ng/L B-Natriuretic Peptide 109 H (<100) pg/mL Total Protein (6.5-8.0) g/dL Albumin (3.5-5.0) g/dL Urine Color Urine Appearance Urine pH (5.0-9.0) Ur Specific [place] (1.005-1.025) Urine Protein (Neg-Trace) mg/dL Urine Glucose (UA) (Negative) mg/dL Urine Ketones (Negative) mg/dL Urine Blood (Negative) Urine Nitrite (Negative) Ur Leukocyte Esterase (Negative) COVID-19 (ALEXSANDRA) (Negative) COVID-19 Clin Com Influenza Type A (PADMINI) (Negative) Influenza Type B (PADMINI) (Negative) Influenza A & B Note <Mahendra Neville MD - Last Filed: 04/19/22 00:59> Independent Interpretation I performed an independent interpretation of an: EKG <Mahendra Neville MD - Last Filed: 04/19/22 00:59> Interpretation: Normal sinus rhythm heart rate 82 beats per minute no acute ST wave changes no acute ischemia <Mahendra Neville MD - Last Filed: 04/19/22 00:59> Discharge Plan Discharge Clinical Impression: Hypertension <SOPHY Palma - Last Filed: 04/18/22 15:36> Patient Disposition: Home, Self-Care <SOPHY Palma - Last Filed: 04/18/22 15:36> Instructions: Chronic Hypertension (ED) <SOPHY Palma - Last Filed: 04/18/22 15:36> Additional Instructions: Continue losartan and start taking hydrochlorothiazide 25 mg daily Check blood pressure daily and follow with PCP Your normal blood pressure should be less than 135/85 <SOPHY Palma - Last Filed: 04/18/22 15:36> Prescriptions: New hydrochlorothiazide 25 mg tablet 25 mg PO QAM Qty: 30 0RF No Action folic acid 1 mg tablet 1 mg PO DAILY latanoprost 0.005 % drops 0 drp ophthalmic (eye) cyanocobalamin (vitamin B-12) [Vitamin B-12] 1,000 mcg tablet 1,000 mcg PO DAILY atorvastatin 10 mg tablet 10 mg PO DAILY lorazepam 1 mg tablet 0.5 mg PO BID PRN (Reason: anxiety) meclizine 25 mg tablet 25 mg PO BEDTIME methotrexate sodium 2.5 mg tablet 15 mg PO QWEEK cholecalciferol (vitamin D3) 25 mcg (1,000 unit) capsule 25 mcg PO DAILY glucosamine [id number] 500-250-250 mg capsule 1 cap PO DAILY albuterol sulfate [Ventolin HFA] 90 mcg/actuation HFA aerosol inhaler 2 puff inhalation QID PRN (Reason: shortness of breath or wheezing) 30 Days Qty: 18 11RF montelukast 10 mg tablet 10 mg PO DAILY 30 Days Qty: 30 11RF albuterol sulfate 2.5 mg /3 mL (0.083 %) solution for nebulization inhalation celecoxib 200 mg capsule 200 mg PO DAILY losartan 50 mg tablet 50 mg PO DAILY triamcinolone acetonide 0.1 % lotion topical BID PRN betamethasone, augmented 0.05 % ointment topical fluticasone propionate 50 mcg/actuation spray,suspension 2 spray intranasal DAILY 30 Days Qty: 15.8 11RF loratadine [Claritin] 10 mg tablet 10 mg PO DAILY 30 Days Qty: 30 11RF Breo Ellipta 100-25 mcg/dose blister with device 1 ea inhalation DAILY Qty: 60 11RF albuterol sulfate [Ventolin HFA] 90 mcg/actuation HFA aerosol inhaler 2 puff inhalation QID PRN (Reason: shortness of breath or wheezing) 30 Days Qty: 18 11RF <SOPHY Palma - Last Filed: 04/18/22 15:36> Interventions: ED Discharge Assessment Last Done: 04/18/22 18:33 <SOPHY Palma - Last Filed: 04/18/22 15:36> Discharge Date/Time: 04/18/22 18:34 <SOPHY Palma - Last Filed: 04/18/22 15:36>
[2022-04-18 16:28] LABS: MANUAL DIFF FLAG NO
[2022-04-18 16:29] LABS: Basophils Absolute Auto 0.1 X10*3/uL (0.0-0.2); Basophils Percent Auto 0.8 % (0-2); Eosinophils Absolute Auto 0.2 X10*3/uL (0.0-0.4); Eosinophils Percent Auto 2.5 % (0-4); Hematocrit 37.2 % (37.0-47.0); Hemoglobin 11.9 g/dl (12.0-16.0); Imm Gran Abs Auto 0.04 X10*3/uL (0.00-0.03); Imm Gran Pct Auto 0.5 % (0.0-0.4); Lymphocytes Absolute Auto 1.8 X10*3/uL (1.2-4.9); Lymphocytes Percent Auto 23.7 % (20-40); Mean Corpuscular Volume 90.7 fL (80.0-98.0); Mean Platelet Volume 10.3 fL (9.4-12.3); Monocytes Absolute Auto 0.5 X10*3/uL (0.1-1.2); Monocytes Percent Auto 6.9 % (2-11); Neutrophils Percent Auto 65.6 % (45-73); Platelet Count 269 X10*3/uL (160-400); Red Cell Distribution Width 12.7 % (11.0-16.0); White Blood Count 7.7 X10*3/uL (4.8-10.8)
[2022-04-18 16:34] LABS: Appearance Urine Clear; Color Urine Yellow; Glucose Urine UA Negative (Negative); Leukocyte Esterase Urine Negative (Negative); Nitrite Urine Negative (Negative); Specific Gravity - Urine <= 1.005 (1.005-1.025); Urine Blood Negative (Negative); Urine Ketones Negative (Negative); Urine Protein Negative (Neg-Trace)
[2022-04-18 16:48] LABS: Alanine Aminotransferase 16 U/L (0-31); Albumin Level 4.2 g/dL (3.5-5.0); Alkaline Phosphatase 59 U/L (39-117); Anion Gap 11 (12-20); Aspartate Amino Transferase 17 U/L (5-31); Bilirubin Direct < 0.2 mg/dL (0.0-0.5); Bilirubin Total 0.3 mg/dL (0.0-1.0); Blood Urea Nitrogen 19 mg/dL (9-16); Calcium 9.4 mg/dL (8.4-10.2); Carbon Dioxide 27 mmol/L (22-29); Chloride 110 mmol/L (96-108); Creatinine Clr Calc Pharmacy 56.1; Estimated Glomerular Filt Rate > 60; Glucose Random 99 mg/dL (60-115); Magnesium 1.7 mg/dL (1.6-2.6); Potassium 4.1 mmol/L (3.3-5.1); Sodium 144 mmol/L (135-145); Total Protein 7.1 g/dL (6.5-8.0)
[2022-04-18 16:51] LABS: COVID-19 Test Negative (Negative); IDNOW Serial# 9DB6401D; IDNOW Serial# BCCEAD1C; Influenza A Negative (Negative); Influenza B2 Negative (Negative)
[2022-04-18 16:55] LABS: Troponin-I High Sensitivity 6.2 ng/L (<3.5-17.0)
[2022-04-18 17:22] LABS: B Type Natriuretic Peptide 109 pg/mL (<100)
[2022-04-18 17:38] VITALS: BP 179/89
[2022-04-18] MEDS: hydroCHLOROthiazide 25 MG TABLET PO (17:38)
[2022-04-18 18:33] VITALS: BP 157/56; PULSE 74; RESP 20; TEMP 36.7; O2SAT 97
== END 2022-04-18 18:34 | disposition home or self-care (01) ==
PROVIDERS: Physician Assistant; Emergency Provider Internal Medicine
DX: R42 Dizziness and giddiness (principal); R51.9 Headache, unspecified; R06.02 Shortness of breath; I10 Essential (primary) hypertension; Z79.899 Other long term (current) drug therapy; Z20.822 Contact with and (suspected) exposure to COVID-19; Z20.828 Contact with and (suspected) exposure to other viral communicable diseases
CPT/HCPCS: 71045; 80048; 80076; 81003; 83735; 83880; 84484; 85025; 87502; 87635; 93005; 99283

== ENCOUNTER 2022-06-03 17:02 | Emergency (ER) | payer OTHER, SELFPAY ==
[2022-06-03 17:15] VITALS: BP 171/71; PULSE 85; RESP 18; TEMP 36.6; O2SAT 96; BMI 38.7
[2022-06-03 19:43] LABS: COVID-19 Test Negative (Negative); IDNOW Serial# 16C4AD1C; IDNOW Serial# 6674DD1D; IDNOW Serial# BCCEAD1C; Influenza A Negative (Negative); Influenza B2 Negative (Negative); Strep A Nucleic Acid Negative (Negative)
[2022-06-03 20:36] VITALS: BP 129/60; PULSE 73; RESP 14; TEMP 36.1; O2SAT 99
--- NOTE | 2022-06-03 21:01 | ED.GENADULT ---
HPI - General Adult General Chief complaint: General Medical Stated complaint: Thrush in mouth/Sore throat Time Seen by Provider: 06/03/22 19:40 Source: patient Mode of arrival: ambulatory Limitations: no limitations History of Present Illness HPI narrative: 72-year-old female presents to ED for treatment of thrush on the tongue. Patient states she has had thrush before in the past. Patient denies any chest pain, shortness of breath, coughing, fever, or chills. Patient has facial swelling, drooling, or change in voice. Related Data Home Medications Medication Instructions Recorded Confirmed atorvastatin 10 mg tablet 10 mg PO DAILY 06/29/21 cholecalciferol (vitamin D3) 25 25 mcg PO DAILY 06/29/21 mcg (1,000 unit) capsule cyanocobalamin (vitamin B-12) 1,000 mcg PO DAILY 06/29/21 1,000 mcg tablet (Vitamin B-12) folic acid 1 mg tablet 1 mg PO DAILY 06/29/21 glucosamine sulfate 500 1 cap PO DAILY 06/29/21 mg-chondroitin 250 mg-msm 250 mg capsule latanoprost 0.005 % eye drops 0 drp ophthalmic (eye) 06/29/21 lorazepam 1 mg tablet 0.5 mg PO BID PRN anxiety 06/29/21 meclizine 25 mg tablet 25 mg PO BEDTIME 06/29/21 methotrexate sodium 2.5 mg tablet 15 mg PO QWEEK 06/29/21 albuterol sulfate 2.5 mg/3 mL mg inhalation 12/29/21 (0.083 %) solution for nebulization betamethasone, augmented 0.05 % topical 12/29/21 topical ointment celecoxib 200 mg capsule 200 mg PO DAILY 12/29/21 losartan 50 mg tablet 50 mg PO DAILY 12/29/21 triamcinolone acetonide 0.1 % topical BID PRN 12/29/21 lotion Previous Rx's Medication Instructions Recorded albuterol sulfate 90 mcg/actuation 2 puff inhalation QID PRN 06/29/21 aerosol inhaler (Ventolin HFA) shortness of breath or wheezing 30 days #18 grams montelukast 10 mg tablet 10 mg PO DAILY 30 days #30 tabs 06/29/21 albuterol sulfate 90 mcg/actuation 2 puff inhalation QID PRN 12/29/21 aerosol inhaler (Ventolin HFA) shortness of breath or wheezing 30 days #18 grams fluticasone furoate 100 1 ea inhalation DAILY #60 ea 12/29/21 mcg-vilanterol 25 mcg/dose inhalation powder (Breo Ellipta) fluticasone propionate 50 2 spray intranasal DAILY 30 days 12/29/21 mcg/actuation nasal #15.8 mL spray,suspension loratadine 10 mg tablet (Claritin) 10 mg PO DAILY 30 days #30 tabs 12/29/21 hydrochlorothiazide 25 mg tablet 25 mg PO QAM #30 tabs 04/18/22 nystatin 100,000 unit/mL oral 400,000 unit (4 mL) PO QID 7 days 06/03/22 suspension #112 mL Allergies Allergy/AdvReac Type Severity Reaction Status Date / Time Iodinated Contrast Media Allergy Shortness Verified 04/18/22 15:34 [Contrast Dye] of Breath SEAFOOD Allergy Severe HIVES Uncoded 12/29/21 12:58 Review of Systems Review of Systems: Thrush Yes all other systems are reviewed and are negative [facility] Past Medical History Medical History Asthma Frequent headaches Psoriasis Psoriasis Pulmonary embolism, bilateral Pulmonary scarring Social History Social History Alcohol intake: never Patient Tobacco Use Status: Never used Tobacco Advance Directives: No Advance Directives Information Provided: Yes Physical Exam ED Vital Signs: Vital Signs - 24 hr 06/03/22 17:15 06/03/22 20:36 Temperature 97.9 F 96.9 F Pulse Rate 85 73 Respiratory Rate 18 14 Blood Pressure 171/71 H 129/60 Pulse Oximetry 96 99 Oxygen Delivery Method Room Air Room Air BMI result Body Mass Index 38.7 Const General: cooperative, healthy appearing, comfortable, no acute distress, well developed, alert, awake and Physically active Orientation/consciousness: oriented to person, oriented to place, oriented to time and patient oriented x3 HENMT Other: Patient speaking in full sentences. Negative for drooling or change in voice. Head: Yes normal to inspection, Yes No palpable skull fracture present, Yes normocephalic, Yes atraumatic and No abrasion Mouth/tongue images: 1. Positive for thrush. Throat: Yes posterior oropharynx normal, Yes tonsils normal and Yes uvula midline Eyes General: appearance normal, both eyes and all related structures Neck Neck: Yes normal visual inspection, Yes full ROM, Yes no lymphadenopathy, Yes no meningeal signs, Yes trachea midline, Yes supple, No anterior neck swelling and No tender Chest Chest palpation & inspection: normal inspection of the chest and normal palpation of entire chest wall Resp Effort & Inspection: normal respiratory effort and able to speak in complete sentences Auscultation: clear to auscultation bilaterally Cardio Jugular venous distension: no JVD Heart sounds: S1 normal heart sound present and S2 normal heart sound present GI Inspection: Yes normal to inspection and No abdominal wall ecchymosis Palpation (GI): Soft to palpation, not firm, nontender, no guarding and not rigid General: No CVA tenderness and Yes no CVA tenderness Back/Spine/Pelvis Back: no CVA tenderness, No CVA tenderness and No back tenderness Skin General skin exam: no rashes or lesions noted and elasticity normal Neuro General: oriented to person, oriented to place, oriented to time, patient oriented x3, gait normal, tone normal, moves all extremities, Normal light touch and pain sensation, no meningeal signs, no focal motor deficits, CN's II-XI intact bilaterally and normal sensation to monofilament Extrem General: Yes normal to inspection and Yes full ROM Psych Appearance: grossly normal, well kempt and not disheveled Course Course Course Narrative: COVID, influenza, strep swab ordered. Reevaluation(s) Reevaluation #1: COVID influenza and strep negative. History physical exam indicate thrush. Patient passed p.o. challenge. Patient is safe for discharge Time: 21:04 Medical Decision Making Medical Decision Making [facility] Narrative: 72-year-old female presents to the ED for thrush on tongue. Differential Diagnosis Differential Diagnoses: The differential diagnosis associated with the presentation includes (Thrush, strep, influenza, RSV, COVID,) Lab Data [facility] Lab Attestation statement: I reviewed the patient's lab results. Labs: Lab Results 06/03/22 06/03/22 06/03/22 Range/Units 19:11 19:11 19:11 COVID-19 (ALEXSANDRA) Negative (Negative) COVID-19 Clin Com See Note Influenza Type A (PADMINI) Negative (Negative) Influenza Type B (PADMINI) Negative (Negative) Influenza A & B Note See Note S. pyogenes GrpA PADMINI Negative (Negative) Prescription Management I considered prescription management with: Other (nystatin) Discharge Plan Discharge Clinical Impression: Oral thrush Patient Disposition: Home, Self-Care Instructions: Oral Candidiasis (ED) Additional Instructions: You have thrush. You will be discharged with nystatin. Please follow-up with primary care provider. Return to the ED immediate for any drooling, change in voice, chest pain, shortness of breath, headache, dizziness, inability tolerate solid food/liquid, or any other concerning symptoms. Prescriptions: New nystatin 100,000 unit/mL suspension 400,000 unit PO QID 7 Days Qty: 112 0RF Rx Instructions: administer 1/2 of dose in each side of the mouth. Than swish and swallow No Action hydrochlorothiazide 25 mg tablet 25 mg PO QAM Qty: 30 0RF folic acid 1 mg tablet 1 mg PO DAILY latanoprost 0.005 % drops 0 drp ophthalmic (eye) cyanocobalamin (vitamin B-12) [Vitamin B-12] 1,000 mcg tablet 1,000 mcg PO DAILY atorvastatin 10 mg tablet 10 mg PO DAILY lorazepam 1 mg tablet 0.5 mg PO BID PRN (Reason: anxiety) meclizine 25 mg tablet 25 mg PO BEDTIME methotrexate sodium 2.5 mg tablet 15 mg PO QWEEK cholecalciferol (vitamin D3) 25 mcg (1,000 unit) capsule 25 mcg PO DAILY glucosamine eqf-ejkurzrnvh-vik 500-250-250 mg capsule 1 cap PO DAILY albuterol sulfate [Ventolin HFA] 90 mcg/actuation HFA aerosol inhaler 2 puff inhalation QID PRN (Reason: shortness of breath or wheezing) 30 Days Qty: 18 11RF montelukast 10 mg tablet 10 mg PO DAILY 30 Days Qty: 30 11RF albuterol sulfate 2.5 mg /3 mL (0.083 %) solution for nebulization inhalation celecoxib 200 mg capsule 200 mg PO DAILY losartan 50 mg tablet 50 mg PO DAILY triamcinolone acetonide 0.1 % lotion topical BID PRN betamethasone, augmented 0.05 % ointment topical fluticasone propionate 50 mcg/actuation spray,suspension 2 spray intranasal DAILY 30 Days Qty: 15.8 11RF loratadine [Claritin] 10 mg tablet 10 mg PO DAILY 30 Days Qty: 30 11RF Breo Ellipta 100-25 mcg/dose blister with device 1 ea inhalation DAILY Qty: 60 11RF albuterol sulfate [Ventolin HFA] 90 mcg/actuation HFA aerosol inhaler 2 puff inhalation QID PRN (Reason: shortness of breath or wheezing) 30 Days Qty: 18 11RF Interventions: ED Discharge Assessment Last Done: 06/03/22 21:18 Discharge Date/Time: 06/03/22 21:19 Print Language: [place]
== END 2022-06-03 21:19 | disposition home or self-care (01) ==
PROVIDERS: Emergency Provider Emergency Medicine Emergency Medical Services
DX: B37.9 Candidiasis, unspecified (principal); J02.8 Acute pharyngitis due to other specified organisms; Z20.822 Contact with and (suspected) exposure to COVID-19; Z20.828 Contact with and (suspected) exposure to other viral communicable diseases; Z79.899 Other long term (current) drug therapy
CPT/HCPCS: 36415; 87502; 87635; 87651; 99283

== ENCOUNTER → 2022-06-25 12:57 | Outpatient (BNVA) | payer OTHER, SELFPAY | PROVIDERS: Visit Provider Hospitalist | DX: J45.40 Moderate persistent asthma, uncomplicated (principal); J98.4 Other disorders of lung; Q38.3 Other congenital malformations of tongue | CPT/HCPCS: 99212 ==

== ENCOUNTER → 2022-07-19 09:45 | Outpatient (BNVA) | payer OTHER, SELFPAY | PROVIDERS: Visit Provider Hospitalist | DX: J45.40 Moderate persistent asthma, uncomplicated (principal); J98.4 Other disorders of lung | CPT/HCPCS: 99212 ==

== ENCOUNTER 2022-12-16 10:11 | Emergency (ER) | payer OTHER, SELFPAY ==
[2022-12-16 10:13] VITALS: BP 130/80; PULSE 97; RESP 18; TEMP 36.6; O2SAT 98; BMI 37.0
--- NOTE | 2022-12-16 12:38 | ED_ITS ---
HPI - General Adult General Chief complaint: General Medical Stated complaint: Oral thrush Time Seen by Provider: 12/16/22 12:32 Source: patient Mode of arrival: ambulatory Limitations: no limitations History of Present Illness HPI narrative: 72yo female with history of PE, asthma, CHARLES, thrush in the past here with complaints of lesions to her tongue which are non-painful. Patient reports last treated for thrush several months ago. She stopped using her steroid inhaler in July. She has a f/u with her PCP in 2 weeks. Related Data Home Medications Medication Instructions Recorded Confirmed atorvastatin 10 mg tablet 10 mg PO DAILY 06/29/21 cyanocobalamin (vitamin B-12) 1,000 mcg PO DAILY 06/29/21 1,000 mcg tablet (Vitamin B-12) latanoprost 0.005 % eye drops 0 drp ophthalmic (eye) 06/29/21 lorazepam 1 mg tablet 0.5 mg PO BID PRN anxiety 06/29/21 meclizine 25 mg tablet 25 mg PO BEDTIME 06/29/21 albuterol sulfate 2.5 mg/3 mL mg inhalation 12/29/21 (0.083 %) solution for nebulization losartan 50 mg tablet 50 mg PO DAILY 12/29/21 alendronate 70 mg tablet 70 mg PO QWEEK 06/25/22 meloxicam 7.5 mg tablet 7.5 mg PO DAILY 06/25/22 nebulizers 07/19/22 Previous Rx's Medication Instructions Recorded fluticasone propionate 50 2 spray intranasal DAILY 30 days 12/29/21 mcg/actuation nasal #15.8 mL spray,suspension loratadine 10 mg tablet (Claritin) 10 mg PO DAILY 30 days #30 tabs 12/29/21 hydrochlorothiazide 25 mg tablet 25 mg PO QAM #30 tabs 04/18/22 nystatin 100,000 unit/mL oral 400,000 unit (4 mL) PO QID 7 days 06/03/22 suspension #112 mL Magic Mouthwash 5 ml PO QID 14 days #240 mL 06/25/22 Diphen/Lido/Antacid 1:1:1 240 mL suspension chlorhexidine gluconate 0.12 % 15 ml buccal BID 14 days #473 mL 06/25/22 mouthwash albuterol sulfate 90 mcg/actuation 2 puff inhalation QID PRN 09/10/22 aerosol inhaler (Ventolin HFA) shortness of breath or wheezing 30 days #18 grams montelukast 10 mg tablet 10 mg PO DAILY #30 tabs 09/10/22 nystatin 100,000 unit/mL oral 400,000 unit (4 mL) PO QID 10 days 12/16/22 suspension #160 mL Allergies Allergy/AdvReac Type Severity Reaction Status Date / Time Iodinated Contrast Media Allergy Shortness Verified 12/16/22 10:13 [Contrast Dye] of Breath SEAFOOD Allergy Severe HIVES Uncoded 12/16/22 10:13 Review of Systems 2 Review of Systems: Yes all other systems are reviewed and are negative Constitutional: Constitutional: Reports no additional constitutional complaints, Denies body ache(s), Denies chills, Denies fever(s), Denies headache(s) and Denies weakness Eyes: Eyes: Reports no additional eye complaints and Denies change in vision ENT: Reports system reviewed and no additional complaints, except as documented, Denies dizziness, Denies headache(s), Denies nasal congestion, Denies nasal discharge and Denies neck pain Cardiovascular: Cardiovascular: Reports no additional cardiovascular complaints, Denies chest pain, Denies leg edema and Denies dyspnea Respiratory: Respiratory: Reports no additional respiratory complaints, Denies cough and Denies dyspnea Gastrointestinal: Gastrointestinal: Reports no additional gastrointestinal complaints, Denies abdominal pain, Denies diarrhea, Denies nausea and Denies vomiting Genitourinary: Genitourinary: Reports no additional female genitourinary complaints and Denies urinary incontinence Musculoskeletal: Musculoskeletal: Reports no additional musculoskeletal complaints, Denies back pain, Denies arthralgias, Denies joint swelling, Denies neck pain, Denies numbness and Denies tingling Integumentary/Breasts: Skin/Breast: Reports system reviewed and no additional complaints, except as docu and Denies rash Neurologic: Reports system reviewed and no additional complaints, except as documented, Denies Abnormal speech present, Denies dizziness, Denies headache(s), Denies numbness, Denies tingling and Denies weakness PMFSH Past Medical History Attestation statement: The following information was validated with the patient. Source: old records reviewed and nursing notes reviewed Medical History Pulmonary embolism, bilateral Psoriasis Asthma Psoriasis Pulmonary scarring Frequent headaches Social History Social History Alcohol intake: never Patient Tobacco Use Status: Never used Tobacco Advance Directives: No Advance Directives Information Provided: Yes Physical Exam ED Vital Signs: Vital Signs - 24 hr 12/16/22 10:13 Temperature 98 F Pulse Rate 97 Respiratory Rate 18 Blood Pressure 130/80 Pulse Oximetry 98 Oxygen Delivery Method Room Air BMI result Body Mass Index 37.0 Const General: cooperative, healthy appearing, comfortable and no acute distress Orientation/consciousness: patient oriented x3 Limitations: no limitations HENMT Head: Yes normal to inspection Ears: hearing grossly normal bilaterally General nose exam: Normal external nose present Face and sinus: Yes normal facial exam Mouth: Normal oral and palatal mucosa present Mouth/tongue images: 2 1. +thrush Throat: Yes posterior oropharynx normal Eyes General: appearance normal, both eyes and all related structures Pupils: Equal, round and reactive pupils present Neck Neck: Yes normal visual inspection Chest Chest palpation & inspection: normal inspection of the chest Resp Effort & Inspection: normal respiratory effort Auscultation: clear to auscultation bilaterally Cardio Rate: regular rate Rhythm: regular rhythm Peripheral pulses: Peripheral pulses 2+ throughout GI Inspection: Yes normal to inspection Palpation (GI): Soft to palpation and nontender Auscultation: normal bowel sounds Back/Spine/Pelvis Thoracic/Lumbar Spine: thoracic and lumbar spine normal to inspection Skin General skin exam: no rashes or lesions noted Neuro General: patient oriented x3, no focal motor deficits and normal sensation to monofilament Cranial nerves: Yes Equal, round and reactive pupils present Cognition (Neuro): normal cognition Speech: No Abnormal speech present Gait exam (Neuro): Normal gait present Motor exam (neuro): 5/5 motor strength present throughout Extrem General: Yes normal to inspection Medical Decision Making Medical Decision Making MDM Narrative: 72yo female with history of PE, asthma, CHARLES, thrush in the past here with complaints of lesions to her tongue which are non-painful. Patient reports last treated for thrush several months ago. She stopped using her steroid inhaler in July. She has a f/u with her PCP in 2 weeks. Exam c/w with thrush. Will initiate oral nystatin. Patient tolerating PO with no difficulty Differential Diagnosis Differential Diagnoses: The differential diagnosis associated with the presentation includes thrush Admission/Observation Consideration of admission/observation: Escalation of care including admission/observation considered tolerating p.o., well hydrated appearing does not need IV fluids or admission External Record Review External record reviewed: Outpatient record Discharge Plan Discharge Clinical Impression: Thrush Patient Disposition: Home, Self-Care Instructions: Oral Candidiasis (ED) Prescriptions: New nystatin 100,000 unit/mL suspension 400,000 unit PO QID 10 Days Qty: 160 0RF Rx Instructions: administer 1/2 of dose in each side of the mouth No Action montelukast 10 mg tablet 10 mg PO DAILY Qty: 30 11RF albuterol sulfate [Ventolin HFA] 90 mcg/actuation HFA aerosol inhaler 2 puff inhalation QID PRN (Reason: shortness of breath or wheezing) 30 Days Qty: 18 11RF hydrochlorothiazide 25 mg tablet 25 mg PO QAM Qty: 30 0RF nystatin 100,000 unit/mL suspension 400,000 unit PO QID 7 Days Qty: 112 0RF Rx Instructions: administer 1/2 of dose in each side of the mouth. Than swish and swallow latanoprost 0.005 % drops 0 drp ophthalmic (eye) cyanocobalamin (vitamin B-12) [Vitamin B-12] 1,000 mcg tablet 1,000 mcg PO DAILY atorvastatin 10 mg tablet 10 mg PO DAILY lorazepam 1 mg tablet 0.5 mg PO BID PRN (Reason: anxiety) meclizine 25 mg tablet 25 mg PO BEDTIME albuterol sulfate 2.5 mg /3 mL (0.083 %) solution for nebulization inhalation losartan 50 mg tablet 50 mg PO DAILY fluticasone propionate 50 mcg/actuation spray,suspension 2 spray intranasal DAILY 30 Days Qty: 15.8 11RF loratadine [Claritin] 10 mg tablet 10 mg PO DAILY 30 Days Qty: 30 11RF meloxicam 7.5 mg tablet 7.5 mg PO DAILY alendronate 70 mg tablet 70 mg PO QWEEK Magic Mouthwash Diphen/Lido/Antacid 1:1:1 240 mL suspension 5 ml PO QID 14 Days Qty: 240 0RF Rx Instructions: Lidocaine Viscous 2 % 80mL; diphenhydramine 12.5 mg/5 mL 80mL; aluminum-mag hydrox-simeth [id number]/5mL 80mL chlorhexidine gluconate 0.12 % mouthwash 15 ml buccal BID 14 Days Qty: 473 0RF (DME) nebulizers Misc See Rx Instructions .ROUTE Rx Instructions: As directed Referrals: Austin Mireles PA-C [Primary Care Provider] - 1 week Interventions: ED Discharge Assessment Last Done: 12/16/22 12:54 Discharge Date/Time: 12/16/22 12:55
== END 2022-12-16 12:55 | disposition home or self-care (01) ==
PROVIDERS: Emergency Provider Emergency Medicine; PCP Physician Assistant
DX: B37.0 Candidal stomatitis (principal); Z79.899 Other long term (current) drug therapy
CPT/HCPCS: 99282

== ENCOUNTER 2022-12-29 15:00 | Emergency (ER) | payer OTHER, SELFPAY ==
[2022-12-29 15:04] VITALS: BP 153/75; PULSE 75; RESP 18; TEMP 36.4; O2SAT 98; BMI 37.0
--- NOTE | 2022-12-29 15:07 | ED_ITS ---
HPI - General Adult General Chief complaint: Upper Respiratory Symptoms Stated complaint: seen recently/ throat pain/dry mouth Time Seen by Provider: 12/29/22 15:21 Source: patient, RN notes reviewed and old records reviewed Mode of arrival: ambulatory History of Present Illness HPI narrative: 72-year-old female with a past medical history of PE, asthma, CHARLES, thrush, presenting to the ED complaining of chills, subjective fever, sore throat, tongue lesions/discomfort x months. Admits has been seen in this ED multiple times for similar symptoms, finish course of nystatin with some relief however symptoms recur. Denies difficulty/inability to swallow, cigarette smoking, oral steroids, inhaler use, cough, SOB, CP, voice change Onset (ago): month(s) Related Data Home Medications Medication Instructions Recorded Confirmed atorvastatin 10 mg tablet 10 mg PO DAILY 06/29/21 cyanocobalamin (vitamin B-12) 1,000 mcg PO DAILY 06/29/21 1,000 mcg tablet (Vitamin B-12) latanoprost 0.005 % eye drops 0 drp ophthalmic (eye) 06/29/21 lorazepam 1 mg tablet 0.5 mg PO BID PRN anxiety 06/29/21 meclizine 25 mg tablet 25 mg PO BEDTIME 06/29/21 albuterol sulfate 2.5 mg/3 mL mg inhalation 12/29/21 (0.083 %) solution for nebulization losartan 50 mg tablet 50 mg PO DAILY 12/29/21 alendronate 70 mg tablet 70 mg PO QWEEK 06/25/22 meloxicam 7.5 mg tablet 7.5 mg PO DAILY 06/25/22 nebulizers 07/19/22 Previous Rx's Medication Instructions Recorded fluticasone propionate 50 2 spray intranasal DAILY 30 days 12/29/21 mcg/actuation nasal #15.8 mL spray,suspension hydrochlorothiazide 25 mg tablet 25 mg PO QAM #30 tabs 04/18/22 nystatin 100,000 unit/mL oral 400,000 unit (4 mL) PO QID 7 days 06/03/22 suspension #112 mL Magic Mouthwash 5 ml PO QID 14 days #240 mL 06/25/22 Diphen/Lido/Antacid 1:1:1 240 mL suspension chlorhexidine gluconate 0.12 % 15 ml buccal BID 14 days #473 mL 06/25/22 mouthwash albuterol sulfate 90 mcg/actuation 2 puff inhalation QID PRN 09/10/22 aerosol inhaler (Ventolin HFA) shortness of breath or wheezing 30 days #18 grams montelukast 10 mg tablet 10 mg PO DAILY #30 tabs 09/10/22 nystatin 100,000 unit/mL oral 400,000 unit (4 mL) PO QID 10 days 12/16/22 suspension #160 mL loratadine 10 mg tablet (Claritin) 10 mg PO DAILY 30 days #30 tabs 12/18/22 fluconazole 100 mg tablet 100 mg PO DAILY 7 days #7 tabs 12/20/22 (Diflucan) Magic Mouthwash 5 ml PO QID 10 days #240 mL 12/29/22 Diphen/Lido/Antacid 1:1:1 240 mL suspension clotrimazole 10 mg niall 10 mg mucous membrane 5XD 14 days 12/29/22 #70 tabs Allergies Allergy/AdvReac Type Severity Reaction Status Date / Time Iodinated Contrast Media Allergy Shortness Verified 12/29/22 15:04 [Contrast Dye] of Breath SEAFOOD Allergy Severe HIVES Uncoded 12/16/22 10:13 Review of Systems Review of Systems: Constitutional: No Weight loss, +subj Fever, + Chills ENT/Mouth: +tongue pain and lesion, No Ear Pain, No Nasal Congestion, No Sinus Pain, No Hoarseness, + sore throat, No Rhinorrhea, No Swallowing Difficulty Cardiovascular: No Chest Pain, No SOB Respiratory: No Cough, No Sputum Gastrointestinal: No Nausea, No Vomiting, No Diarrhea, No Constipation, No Abdominal pain Musculoskeletal: No joint pain, No Myalgias, No Joint Swelling Skin: No Skin Lesions, No rash Neuro: No Weakness, No Numbness, No Paresthesias Yes all other systems are reviewed and are negative Constitutional: Constitutional: Reports as per [facility] Past Medical History Attestation statement: The following information was validated with the patient. Source: old records reviewed Medical History Pulmonary embolism, bilateral Psoriasis Asthma Psoriasis Pulmonary scarring Frequent headaches Social History Social History Alcohol intake: never Patient Tobacco Use Status: Never used Tobacco Advance Directives: No Advance Directives Information Provided: No Physical Exam ED Vital Signs: Vital Signs - 24 hr 12/29/22 15:04 Temperature 97.6 F Pulse Rate 75 Respiratory Rate 18 Blood Pressure 153/75 H Pulse Oximetry 98 Oxygen Delivery Method Room Air BMI result Body Mass Index 37.0 Const General: cooperative, healthy appearing and no acute distress Orientation/consciousness: patient oriented x3 Limitations: no limitations HENMT Other: +dark/black flat lesions noted to tongue, internal lips & inner cheeks some white areas noted to central and sides of tongue & macerated erythematous area to L tongue. No open wounds/ulcerations. Uvula midline, talking in complete sentences, no drooling. Head: Yes normal to inspection and Yes atraumatic Ears: hearing grossly normal bilaterally, external ears normal, TM's normal bilaterally and mastoids normal General nose exam: Normal external nose present Face and sinus: Yes normal facial exam Mouth: no drooling, no muffled voice and no trismus Throat: Yes tonsils normal, Yes uvula midline, No peritonsillar mass, No uvula laterally displaced and No uvular edema Eyes General: appearance normal, both eyes and all related structures EOM: EOMs intact bilaterally Neck Neck: Yes normal visual inspection and Yes no meningeal signs Resp Effort & Inspection: normal respiratory effort and no respiratory distress Auscultation: clear to auscultation bilaterally Cardio Rate: regular rate Heart sounds: S1 normal heart sound present and S2 normal heart sound present Skin Rashes: no rashes Wounds: no wounds Neuro General: patient oriented x3, tone normal and no meningeal signs Cranial nerves: Yes CN's II-XII intact bilaterally Gait exam (Neuro): Normal gait present Extrem General: Yes normal to inspection Course Course Course Narrative: -rapid strep, influenza and COVID-19 negative Results discussed with patient including worrisome signs and symptoms and strict return precautions, and when to return to the emergency department. They verbalized understanding and feel safe for discharge at this time. Medications Administered Discontinued Medications Generic Name Dose Route Start Last Admin Trade Name Freq PRN Reason Stop Dose Admin Lidocaine HCl 5 ml 12/29/22 15:49 12/29/22 15:58 Lidocaine Hcl Viscous 2 % 15 Ml Solution MUCOUS MEM 12/29/22 15:50 5 ml ONCE ONE Administration Medical Decision Making Medical Decision Making MDM Narrative: 72-year-old female with a past medical history of PE, asthma, CHARLES, thrush, presenting to the ED complaining of chills, subjective fever, sore throat, tongue lesions/discomfort x months. On exam vital signs stable, NAD, nontoxic appearing, physical exam as noted above with dark/black lesions noted to tongue/lips and oral mucosa as well as some small white areas and macerated area to left side of tongue. No open wounds/ulcerations or cellulitis. No drooling, handling secretions, talking in complete sentences. Concern for malignancy vs some areas of continued thrush vs leukoplakia. Concern for immunocompromised state versus autoimmune disorder Discussed with patient at length should follow-up with dermatology/ENT for biopsies Plan: HIV/herpes testing, magic mouthwash Please refer to course for remaining clinical decision making, interpretation of labs/imaging results, and discussions with consultants and/or family members. Differential Diagnosis Differential Diagnoses: The differential diagnosis associated with the presentation includes As above Lab Data [facility] [place] Lab Attestation statement: I reviewed the patient's lab results. Labs: Lab Results 12/29/22 12/29/22 Range/Units 15:30 15:44 COVID-19 (ALEXSANDRA) Negative (Negative) COVID-19 Clin Com See Note Influenza Type A (PADMINI) Negative (Negative) Influenza Type B (PADMINI) Negative (Negative) Influenza A & B Note See Note S. pyogenes GrpA PADMINI Negative (Negative) External Record Review External record reviewed: Inpatient record, Office record, Outpatient record, Prior outpatient labs, Prior outpatient radiology, Primary care record and Outside ED record Tests considered The following testing was considered but not selected: As above Prescription Management I considered prescription management with: Pain Medication, Antiviral and Antibiotic Chronic Conditions Patient?s care impacted by: Other (asthma, CHARLES) Discharge Plan Discharge Clinical Impression: Tongue lesion Patient Disposition: Home, Self-Care Instructions: Mouth Care (ED) Additional Instructions: You need to follow-up with ear nose throat specialist or dermatology for biopsy/scrapings Use clotrimazole troches and magic mouthwash as prescribed If symptoms persist or worsen return to the emergency department Prescriptions: New Magic Mouthwash Diphen/Lido/Antacid 1:1:1 240 mL suspension 5 ml PO QID 10 Days Qty: 240 0RF Rx Instructions: Lidocaine Viscous 2 % 80mL; diphenhydramine 12.5 mg/5 mL 80mL; aluminum-mag hydrox-simeth [id number]-13hr/5mL 80mL Swish & Spit clotrimazole 10 mg niall 10 mg mucous membrane 5XD 14 Days Qty: 70 0RF No Action montelukast 10 mg tablet 10 mg PO DAILY Qty: 30 11RF albuterol sulfate [Ventolin HFA] 90 mcg/actuation HFA aerosol inhaler 2 puff inhalation QID PRN (Reason: shortness of breath or wheezing) 30 Days Qty: 18 11RF loratadine [Claritin] 10 mg tablet 10 mg PO DAILY 30 Days Qty: 30 11RF fluconazole [Diflucan] 100 mg tablet 100 mg PO DAILY 7 Days Qty: 7 0RF hydrochlorothiazide 25 mg tablet 25 mg PO QAM Qty: 30 0RF nystatin 100,000 unit/mL suspension 400,000 unit PO QID 7 Days Qty: 112 0RF Rx Instructions: administer 1/2 of dose in each side of the mouth. Than swish and swallow nystatin 100,000 unit/mL suspension 400,000 unit PO QID 10 Days Qty: 160 0RF Rx Instructions: administer 1/2 of dose in each side of the mouth latanoprost 0.005 % drops 0 drp ophthalmic (eye) cyanocobalamin (vitamin B-12) [Vitamin B-12] 1,000 mcg tablet 1,000 mcg PO DAILY atorvastatin 10 mg tablet 10 mg PO DAILY lorazepam 1 mg tablet 0.5 mg PO BID PRN (Reason: anxiety) meclizine 25 mg tablet 25 mg PO BEDTIME albuterol sulfate 2.5 mg /3 mL (0.083 %) solution for nebulization inhalation losartan 50 mg tablet 50 mg PO DAILY fluticasone propionate 50 mcg/actuation spray,suspension 2 spray intranasal DAILY 30 Days Qty: 15.8 11RF meloxicam 7.5 mg tablet 7.5 mg PO DAILY alendronate 70 mg tablet 70 mg PO QWEEK Magic Mouthwash Diphen/Lido/Antacid 1:1:1 240 mL suspension 5 ml PO QID 14 Days Qty: 240 0RF Rx Instructions: Lidocaine Viscous 2 % 80mL; diphenhydramine 12.5 mg/5 mL 80mL; aluminum-mag hydrox-simeth [id number]/5mL 80mL chlorhexidine gluconate 0.12 % mouthwash 15 ml buccal BID 14 Days Qty: 473 0RF (DME) nebulizers Misc See Rx Instructions .ROUTE Rx Instructions: As directed Referrals: [facility] [Outside] [facility] [Outside] Óscar Anderson [Physician] -
[2022-12-29 15:43] LABS: IDNOW Serial# 08D9AD1C; Strep A Nucleic Acid Negative (Negative)
[2022-12-29] MEDS: Lidocaine HCl Viscous 2 % 15 ML SOLUTION 5 ML MUCOUS MEM (15:58)
[2022-12-29 16:10] LABS: COVID-19 Test Negative (Negative); IDNOW Serial# 08D9AD1C
[2022-12-29 16:15] LABS: IDNOW Serial# BCCEAD1C; Influenza A Negative (Negative); Influenza B2 Negative (Negative)
[2022-12-29 16:29] VITALS: BP 153/68
[2022-12-31 03:47] LABS: HIV AB/AG Nonreactive (Nonreactive); HIV Num 1 0.83 S/CO (0.00-0.99)
[2022-12-31 21:28] LABS: Herpes Simplex Type 2 IgG <0.90 index
== END 2022-12-29 16:30 | disposition home or self-care (01) ==
PROVIDERS: Physician Assistant; Emergency Provider Emergency Medicine Emergency Medical Services; PCP Physician Assistant
DX: K13.70 Unspecified lesions of oral mucosa (principal); J02.9 Acute pharyngitis, unspecified; Z20.822 Contact with and (suspected) exposure to COVID-19; Z86.711 Personal history of pulmonary embolism; Z79.899 Other long term (current) drug therapy
CPT/HCPCS: 36415; 86695; 86696; 87389; 87502; 87635; 87651; 99283; 99284

== ENCOUNTER 2023-01-18 12:31 | Outpatient (AMB) | payer OTHER, SELFPAY ==
[2023-01-18 13:01] VITALS: BP 124/70; PULSE 81; O2SAT 97; BMI 36.4
--- NOTE | 2023-01-18 13:01 | MHC.OFFVIS ---
Intake Vital Signs 01/18/23 13:01 Height 4 ft 11 in Weight 180 lb BMI 36.4 BP 124/70 Blood Pressure Location Lt brachial Position Sitting Pulse 81 Pulse Source Pulse Oximeter Pulse Oximetry (%) 97 Oxygen Delivery Method Room Air Intake Visit Reasons: asthma Property Consultant Required: No Allergies Iodinated Contrast Media [Contrast Dye] Allergy (Verified 01/18/23 13:03) Shortness of Breath SEAFOOD Allergy (Severe, Uncoded 01/18/23 13:03) HIVES HPI HPI Comments History of Present Illness Details The patient is a 72-year-old woman with a known history of asthma in addition to unprovoked pulmonary emboli. She was on Eliquis for many years. She was able to titrate down to 2.5 mg twice a day and subsequently couple years ago she stop the anticoagulation altogether. the patient has not had any recurrent clots thank Goodness. In the meantime she continues to be stable on her current respiratory regimen which includes Breo 100 and also has been using Singulair. The patient does have significant glaucoma and therefore she is wondering about the use of steroids in her inhaler. I did reassure her that the dose of steroids at the inhaler is very small and should not affect her glaucoma she will continue monitoring closely of pressures with her signal processing engineer. In addition to that will avoid any anticholinergic therapy to avoid further worsening of glaucoma. We did review her last CT scan of the chest was back in 2019 at [facility] demonstrating stable areas interstitial changes and reticular changes that he has had. She has been on methotrexate for many years but does not appear to have any acute worsening of the interstitial fibrosis time. She has not had any worsening symptoms either. A plan to do a chest x-ray that she can have in order to assess for any progression of disease. If the x-ray is not helpful she will need another CT scan. in addition the patient has been having significant amount of headaches. The headaches can be pretty severe. She does characterize months migraines. Typically worse in the morning. She also has nightmares and also episodes of dizziness. She has been evaluated by Neurology in the past. It appears that she does have an elevated Mari[place] score of 11/24. The patient also has cardiovascular risk factors. At this point I will request a home sleep study to better address to see if there is any sleep apnea that needs to be treated and hopefully improve her quality of life. The patient has been struggling also was psoriasis. She is working with her insurance company in order to get better medication coverage to be able to treat her psoriasis that is very uncomfortable for her. 12/29/2021 the patient is here for a pulmonary follow-up visit. Overall the patient continues to do well. Denies any significant leg swelling or pain. Now she has been without the Eliquis for many years and still doing very well which is reassuring. The patient still having headaches. Did have her undergo a home sleep study demonstrating no evidence of any sleep apnea and no real significance of hypoxia. Her pulse ox did drop to 85% but only spent about 8 minute below 88%. In addition to that the patient did have an increased heart rate up to 155 while sleeping. This may have been artifact but if not should be further evaluated. Patient also had a chest x-ray sometime in September 2019 to when she was here last and was without any acute disease. She is continue with respiratory therapy. She will be following up with her neurologist regarding headaches. In the meantime she is also using methotrexate for her connective tissue conditions. Appears to be tolerating it well without any pulmonary adverse effects. 06/25/22 The patient is here for a pulmonary follow up visit. The patient is complaining of having sores on her tongue. She was diagnosed with thrush and provided nystatin rinse. But no mprovement. She has been using the Breo inhaler. Her breathing is otherwise good. Also, recently, she went to the ED with hypertensive urgency. She was started on 2 new BP meds. I did look at her tongue, but does not look like thrush. Appears to be ulcerations with swelling. 07/19/2022 the patient is here for a pulmonary follow-up visit. Overall she is doing better. The mouth sores have improved. Although is still a little uncomfortable. She has completed all the antifungal therapies. She also completed the antimicrobial therapy. She also stop the Breo. She has not had to use her rescue inhaler. Her blood pressure now is better. She is sleeping well. She is gaining weight however. She needs to follow-up with her primary care doctor regarding the issues with her weight gain. She understands that with her history sleep apnea the weight gain can resulting worsening daytime drowsiness and also worsening sleep apnea. 01/18/2023 the patient is here for pulmonary follow-up visit. She still complains of her discomfort due to her tongue inflammation. She has been treated for fungal infections again without any significant improvement. To me does not appear to have any thrush. Also complaining of sore throat. Does have some erythema in the back of the throat. Has tried mouthwash in addition to salt rinses. Again, will provide with the magic mouthwash just to provide some relief of the discomfort. In the meantime she can try doxycycline to see if this helps treat any bacterial pharyngitis. If the patient is doing better she can try a course of fluconazole again. She does have an appointment with ENT. They can better address the abnormalities of her tongue in adjacent areas in the meantime she does have a rescue inhaler that she has not required. We had discontinued her steroid inhaler to minimize any irritation of the upper airway. [facility] Medical History (Updated 01/20/23 @ 22:29 by Luke Hernandez MD) Candidiasis Pulmonary embolism, bilateral Psoriasis Asthma Psoriasis Pulmonary scarring Frequent headaches Social History Alcohol intake: never Patient Tobacco Use Status: Never used Tobacco Review of Systems Const Denies fever(s) Eyes Denies change in vision ENT Denies change in voice, Denies vertigo, Reports dizziness, Denies mouth lesions and Denies mouth pain Card Denies chest pain and Denies palpitations Resp Denies cough and Denies wheezing GI Reports no additional complaints Musc Reports no additional complaints Skin/Breast Reports rash Neuro Denies vertigo and Reports dizziness Endo Denies palpitations Aller/Immun Denies wheezing Physical Exam Vital Signs: Last Vital Signs Pulse 81 01/18/23 13:01 BP 124/70 01/18/23 13:01 Pulse Ox 97 01/18/23 13:01 Oxygen Delivery Method Room Air 01/18/23 13:01 BMI result Body Mass Index 36.4 Const General: comfortable HEENT Head: Yes normal to inspection Mouth: tongue abnormal elevated, geographic, ulcerated, discolored and with lesion noted; without any white coating and not hairy Neck Neck: Yes supple Chest Chest palpation & inspection: normal inspection of the chest Resp Effort & Inspection: normal respiratory effort Auscultation: clear to auscultation bilaterally Cardio Rate: regular rate Rhythm: regular rhythm Heart sounds: S1 normal heart sound present and S2 normal heart sound present GI Auscultation: normal bowel sounds Skin General skin exam: no rashes or lesions noted Extrem General: Yes no clubbing, cyanosis or edema Results Reviewed Results Reviewed: Assessment & Plan Assessment & Plan (1) Asthma: Code(s): J45.909 - Unspecified asthma, uncomplicated Qualifiers: Asthma complication type: uncomplicated Asthma persistence: persistent Asthma severity: moderate Qualified Code(s): J45.40 - Moderate persistent asthma, uncomplicated (2) Pulmonary scarring: Comment: CXR 09/27 was reassuring Code(s): J98.4 - Other disorders of lung (3) Pharyngitis: Code(s): J02.9 - Acute pharyngitis, unspecified Qualifiers: Pharyngitis/tonsillitis etiology: unspecified etiology Qualified Code(s): J02.9 - Acute pharyngitis, unspecified (4) 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 Plan short-acting beta agonist as needed, patient responds better to Ventolin no anticholinergics due to her glaucoma Fluticasone nasal spray start doxy magic mouth wash medrol taper Claritin singulair ENT eval pending F/U 6 months Medications: New doxycycline hyclate 100 mg PO BID 14 days 28 caps 0RF methylprednisolone (Medrol (Antolin)) PO PER PKG DIR 6 days 21 ea 0RF methylprednisolone (Medrol (Antolin)) PO PER PKG DIR 6 days 21 ea 0RF doxycycline hyclate 100 mg PO BID 14 days 28 caps 0RF Refilled loratadine (Claritin) 10 mg PO DAILY 30 days 30 tabs 11RF J30.2 - Other seasonal allergic rhinitis, J45.909 - Unspecified asthma, uncomplicated montelukast 10 mg PO DAILY 30 tabs 11RF J45.909 - Unspecified asthma, uncomplicated montelukast 10 mg PO DAILY 30 tabs 11RF J45.909 - Unspecified asthma, uncomplicated loratadine (Claritin) 10 mg PO DAILY 30 days 30 tabs 11RF J30.2 - Other seasonal allergic rhinitis, J45.909 - Unspecified asthma, uncomplicated Coding Level of Care Code Est Pt Level 4 (68024) Diagnoses Moderate persistent asthma without complication J45.40 Asthma complication type: uncomplicated Asthma persistence: persistent Asthma severity: moderate Pulmonary scarring J98.4 Pharyngitis, unspecified etiology J02.9 Pharyngitis/tonsillitis etiology: unspecified etiology Tongue abnormality Q38.3 Time Spent (min) 17
== END 2023-01-18 14:05 | disposition home or self-care (01) ==
PROVIDERS: Visit Provider Hospitalist
DX: J45.40 Moderate persistent asthma, uncomplicated (principal); J98.4 Other disorders of lung; J02.9 Acute pharyngitis, unspecified; Q38.3 Other congenital malformations of tongue
CPT/HCPCS: 99214

== ENCOUNTER → 2023-01-18 12:31 | Outpatient (BNVA) | payer OTHER, SELFPAY | PROVIDERS: Visit Provider Hospitalist | DX: J45.40 Moderate persistent asthma, uncomplicated (principal); J98.4 Other disorders of lung; J02.9 Acute pharyngitis, unspecified; Q38.3 Other congenital malformations of tongue | CPT/HCPCS: 99212 ==

== ENCOUNTER 2023-01-23 23:44 | Emergency (ER) | payer OTHER, SELFPAY ==
--- NOTE | 2023-01-23 | ECG_ITS ---
Test Reason : CHEST PAIN Blood Pressure : / mmHG Vent. Rate : 081 BPM Atrial Rate : 081 BPM P-R Int : 120 ms QRS Dur : 076 ms QT Int : 380 ms P-R-T Axes : 041 012 042 degrees QTc Int : 441 ms Normal sinus rhythm RSR' or QR pattern in V1 suggests right ventricular conduction delay Otherwise normal ECG When compared with ECG of 18-APR-2022 16:05, No significant change was found Referred By: Generic ED Physician Electronically Signed By:CYDNEY PEREZ MD
[2023-01-23 23:54] VITALS: BP 182/80; PULSE 80; RESP 18; TEMP 36.7; O2SAT 98; BMI 36.4
[2023-01-24 00:05] LABS: Hematocrit 36.7 % (37.0-47.0); Hemoglobin 11.8 g/dl (12.0-16.0); Mean Corpuscular HGB Conc 32.2 g/dl (31.0-35.0); Mean Corpuscular Hemoglobin 28.6 pg (27.0-33.0); Mean Corpuscular Volume 89.1 fL (80.0-98.0); Mean Platelet Volume 10.5 fL (9.4-12.3); Platelet Count 227 X10*3/uL (160-400); Red Blood Count 4.12 X10*6/uL (4.20-5.50); Red Cell Distribution Width 12.7 % (11.0-16.0); White Blood Count 9.1 X10*3/uL (4.8-10.8)
--- NOTE | 2023-01-24 00:18 | ED.CHESTPAIN ---
HPI - Chest Pain General Chief Complaint: Chest Pain Stated Complaint: heart pain Time Seen by Provider: 01/24/23 00:18 Source: patient Mode of arrival: ambulatory Limitations: no limitations History of Present Illness HPI narrative: Patient with history of hypertension , DVT and PE in the past no known coronary artery disease history of chronic vertigo comes here as while watching TV at 22:30 noticed sharp mid chest pain lasted till patient arrived here for an hr no diaphoresis no shortness of breath no palpitation patient never had similar pain in the past the pain was sharp and very uncomfortable Related Data Home Medications Medication Instructions Recorded Confirmed atorvastatin 10 mg tablet 10 mg PO DAILY 06/29/21 cyanocobalamin (vitamin B-12) 1,000 mcg PO DAILY 06/29/21 1,000 mcg tablet (Vitamin B-12) latanoprost 0.005 % eye drops 0 drp ophthalmic (eye) 06/29/21 lorazepam 1 mg tablet 0.5 mg PO BID PRN anxiety 06/29/21 meclizine 25 mg tablet 25 mg PO BEDTIME 06/29/21 albuterol sulfate 2.5 mg/3 mL mg inhalation 12/29/21 (0.083 %) solution for nebulization losartan 50 mg tablet 50 mg PO DAILY 12/29/21 alendronate 70 mg tablet 70 mg PO QWEEK 06/25/22 meloxicam 7.5 mg tablet 7.5 mg PO DAILY 06/25/22 nebulizers 07/19/22 Previous Rx's Medication Instructions Recorded fluticasone propionate 50 2 spray intranasal DAILY 30 days 12/29/21 mcg/actuation nasal #15.8 mL spray,suspension hydrochlorothiazide 25 mg tablet 25 mg PO QAM #30 tabs 04/18/22 nystatin 100,000 unit/mL oral 400,000 unit (4 mL) PO QID 7 days 06/03/22 suspension #112 mL chlorhexidine gluconate 0.12 % 15 ml buccal BID 14 days #473 mL 06/25/22 mouthwash albuterol sulfate 90 mcg/actuation 2 puff inhalation QID PRN 09/10/22 aerosol inhaler (Ventolin HFA) shortness of breath or wheezing 30 days #18 grams nystatin 100,000 unit/mL oral 400,000 unit (4 mL) PO QID 10 days 12/16/22 suspension #160 mL fluconazole 100 mg tablet 100 mg PO DAILY 7 days #7 tabs 12/20/22 (Diflucan) Magic Mouthwash 5 ml PO QID 10 days #240 mL 12/29/22 Diphen/Lido/Antacid 1:1:1 240 mL suspension clotrimazole 10 mg niall 10 mg mucous membrane 5XD 14 days 12/29/22 #70 tabs doxycycline hyclate 100 mg capsule 100 mg PO BID 14 days #28 caps 01/18/23 loratadine 10 mg tablet (Claritin) 10 mg PO DAILY 30 days #30 tabs 01/18/23 methylprednisolone 4 mg tablets in See Rx Instructions PO PER PKG DIR 01/18/23 a dose pack (Medrol (Antolin)) 6 days #21 ea montelukast 10 mg tablet 10 mg PO DAILY #30 tabs 01/18/23 aspirin 81 mg tablet,delayed 81 mg PO DAILY #30 tabs 01/24/23 release (Ecotrin Low Strength) Allergies Allergy/AdvReac Type Severity Reaction Status Date / Time Iodinated Contrast Media Allergy Shortness Verified 01/18/23 13:03 [Contrast Dye] of Breath SEAFOOD Allergy Severe HIVES Uncoded 01/18/23 13:03 Review of Systems Review of Systems: Yes all other systems are reviewed and are negative PMFSH Past Medical History Medical History Candidiasis Pulmonary embolism, bilateral Psoriasis Asthma Psoriasis Pulmonary scarring Frequent headaches Social History Social History Alcohol intake: never Patient Tobacco Use Status: Never used Tobacco Smoked in Last 30 Days: No Use of substances other than those prescribed or required for medical reasons: No Advance Directives: No Advance Directives Information Provided: Yes Physical Exam Vital Signs: Vital Signs: Last Vital Signs Temp 98.1 F 01/23/23 23:54 Pulse 64 01/24/23 02:32 Resp 15 01/24/23 02:32 BP 160/68 H 01/24/23 02:32 Pulse Ox 98 01/24/23 02:32 O2 Del Method Room Air 01/24/23 02:32 BMI result Body Mass Index 36.4 Appearance: Alert. Oriented X3. No acute distress. Eyes: PERRLA, No Nystagmus ENT: Pharynx normal. Oral Mucosa moist Neck: Normal inspection. Neck supple. CVS: Normal heart rate and rhythm. Pulses normal. Respiratory: No respiratory distress. Equal air entry bilateral, no wheezing/rales/rhonchi Abdomen: Soft and nontender. Bowel sounds are present, no mass palpable, no CVA tenderness Skin: Skin warm and dry. Normal skin color. Normal skin turgor. Extremities: No lower extremity edema. No calf tenderness Neuro: Oriented X 3. No motor deficit. No sensory deficit.No cerebellar signs , cranial nerves II-XII intact Medications Administered Discontinued Medications Generic Name Dose Route Start Last Admin Trade Name Freq PRN Reason Stop Dose Admin Aspirin 162 mg 01/24/23 00:27 01/24/23 00:33 Aspirin Enteric Coated 81 Mg Tablet. PO 01/24/23 00:28 162 mg ONCE ONE Administration Medical Decision Making Medical Decision Making [facility] Narrative: Patient with r atypical chest pain 2 sets of cardiac enzymes negative EKG without any significant ischemic changes workup is negative 2s patient pain-free after arrival in the ER advised to follow-up PCP/temperature control inspector Differential Diagnosis Differential Diagnoses: The differential diagnosis associated with the presentation includes ACS/costochondritis/esophagitis/PE Lab Data [facility] Lab Attestation statement: I reviewed the patient's lab results. 01/24/23 00:01 01/24/23 00:01 Labs: Lab Results 01/24/23 01/24/23 01/24/23 Range/Units 00:01 00:44 02:24 WBC 9.1 (4.8-10.8) X10*3/uL RBC 4.12 L (4.20-5.50) X10*6/uL Hgb 11.8 L (12.0-16.0) g/dl Hct 36.7 L (37.0-47.0) % MCV 89.1 (80.0-98.0) fL MCH 28.6 (27.0-33.0) pg MCHC 32.2 (31.0-35.0) g/dl RDW 12.7 (11.0-16.0) % Plt Count 227 (160-400) X10*3/uL MPV 10.5 (9.4-12.3) fL Absolute Nucleated RBC 0.000 (0.0-0.012) X10*3/uL Nucleated RBC % (auto) 0.0 (0.0-0.2) /100WBC PT 11.2 (11.1-13.3) SEC INR 0.9 (0.9-1.1) D-Dimer High Sensitivty < 150 NG/ML Sodium 143 (135-145) mmol/L Potassium 4.0 (3.3-5.1) mmol/L Chloride 110 H (96-108) mmol/L Carbon Dioxide 23 (22-29) mmol/L Anion Gap 14 (12-20) BUN 25 H (9-16) mg/dL Creatinine 0.85 (0.5-1.4) mg/dL Estim Creat Clear Calc 57.0 Estimated GFR > 60 Random Glucose 105 (60-115) mg/dL Calcium 9.2 (8.4-10.2) mg/dL Total Bilirubin 0.3 (0.0-1.0) mg/dL AST 17 (5-31) U/L ALT 16 (0-31) U/L Alkaline Phosphatase 57 (39-117) U/L Troponin I High Sens < 2.7 D < 2.7 (<3.5-17.0) ng/L Total Protein 6.8 (6.5-8.0) g/dL Albumin 3.8 (3.5-5.0) g/dL COVID-19 (ALEXSANDRA) Negative (Negative) COVID-19 Clin Com See Note Independent Interpretation I performed an independent interpretation of an: EKG Interpretation: Normal sinus rhythm heart rate 81 beats per minute normal intervals normal axis no acute ST-T changes no acute ischemia Discharge Plan Discharge Clinical Impression: Chest pain Patient Disposition: Home, Self-Care Instructions: Chest Pain (ED) Additional Instructions: Take baby aspirin daily Cause of chest pain is not very clear need to follow up with PCP/temperature control inspector for further workup Report to the ER if recurrence/worsening of chest pain Prescriptions: New aspirin [Ecotrin Low Strength] 81 mg tablet,delayed release (DR/EC) 81 mg PO DAILY Qty: 30 0RF No Action albuterol sulfate [Ventolin HFA] 90 mcg/actuation HFA aerosol inhaler 2 puff inhalation QID PRN (Reason: shortness of breath or wheezing) 30 Days Qty: 18 11RF fluconazole [Diflucan] 100 mg tablet 100 mg PO DAILY 7 Days Qty: 7 0RF hydrochlorothiazide 25 mg tablet 25 mg PO QAM Qty: 30 0RF nystatin 100,000 unit/mL suspension 400,000 unit PO QID 7 Days Qty: 112 0RF Rx Instructions: administer 1/2 of dose in each side of the mouth. Than swish and swallow nystatin 100,000 unit/mL suspension 400,000 unit PO QID 10 Days Qty: 160 0RF Rx Instructions: administer 1/2 of dose in each side of the mouth Magic Mouthwash Diphen/Lido/Antacid 1:1:1 240 mL suspension 5 ml PO QID 10 Days Qty: 240 0RF Rx Instructions: Lidocaine Viscous 2 % 80mL; diphenhydramine 12.5 mg/5 mL 80mL; aluminum-mag hydrox-simeth [id number]/5mL 80mL Swish & Spit clotrimazole 10 mg niall 10 mg mucous membrane 5XD 14 Days Qty: 70 0RF latanoprost 0.005 % drops 0 drp ophthalmic (eye) cyanocobalamin (vitamin B-12) [Vitamin B-12] 1,000 mcg tablet 1,000 mcg PO DAILY atorvastatin 10 mg tablet 10 mg PO DAILY lorazepam 1 mg tablet 0.5 mg PO BID PRN (Reason: anxiety) meclizine 25 mg tablet 25 mg PO BEDTIME albuterol sulfate 2.5 mg /3 mL (0.083 %) solution for nebulization inhalation losartan 50 mg tablet 50 mg PO DAILY fluticasone propionate 50 mcg/actuation spray,suspension 2 spray intranasal DAILY 30 Days Qty: 15.8 11RF meloxicam 7.5 mg tablet 7.5 mg PO DAILY alendronate 70 mg tablet 70 mg PO QWEEK chlorhexidine gluconate 0.12 % mouthwash 15 ml buccal BID 14 Days Qty: 473 0RF (DME) nebulizers Misc See Rx Instructions .ROUTE Rx Instructions: As directed montelukast 10 mg tablet 10 mg PO DAILY Qty: 30 11RF loratadine [Claritin] 10 mg tablet 10 mg PO DAILY 30 Days Qty: 30 11RF doxycycline hyclate 100 mg capsule 100 mg PO BID 14 Days Qty: 28 0RF methylprednisolone [Medrol (Antolin)] 4 mg tablets,dose pack See Rx Instructions PO PER PKG DIR 6 Days Qty: 21 0RF Rx Instructions: PO PER PKG DIR Interventions: ED Discharge Assessment Last Done: 01/24/23 03:23 Discharge Date/Time: 01/24/23 03:24
[2023-01-24 00:21] LABS: Alanine Aminotransferase 16 U/L (0-31); Albumin Level 3.8 g/dL (3.5-5.0); Alkaline Phosphatase 57 U/L (39-117); Anion Gap 14 (12-20); Aspartate Amino Transferase 17 U/L (5-31); Bilirubin Total 0.3 mg/dL (0.0-1.0); Blood Urea Nitrogen 25 mg/dL (9-16); Calcium 9.2 mg/dL (8.4-10.2); Carbon Dioxide 23 mmol/L (22-29); Chloride 110 mmol/L (96-108); Estimated Glomerular Filt Rate > 60; Glucose Random 105 mg/dL (60-115); Sodium 143 mmol/L (135-145); Total Protein 6.8 g/dL (6.5-8.0)
[2023-01-24 00:31] LABS: Troponin-I High Sensitivity < 2.7 ng/L (<3.5-17.0)
[2023-01-24] MEDS: Aspirin Enteric Coated 81 MG TABLET.DR 162 MG PO (00:33)
[2023-01-24 00:47] VITALS: BP 164/76; PULSE 70; RESP 12; O2SAT 97
[2023-01-24 01:01] LABS: INTERNATIONAL NORM RATIO 0.9 (0.9-1.1); Prothrombin Time 11.2 SEC (11.1-13.3)
[2023-01-24 01:04] LABS: D Dimer High Sensitivity < 150 NG/ML
[2023-01-24 01:05] LABS: COVID-19 Test Negative (Negative); IDNOW Serial# 08D9AD1C
[2023-01-24 02:32] VITALS: BP 160/68; PULSE 64; RESP 15; O2SAT 98
[2023-01-24 02:55] LABS: Troponin-I High Sensitivity < 2.7 ng/L (<3.5-17.0)
== END 2023-01-24 03:24 | disposition home or self-care (01) ==
PROVIDERS: Emergency Provider Internal Medicine
DX: R07.9 Chest pain, unspecified (principal); Z11.52 Encounter for screening for COVID-19
CPT/HCPCS: 36415; 80053; 84484; 85027; 85379; 85610; 87635; 93005; 99283; 99285

== ENCOUNTER 2023-02-12 13:23 | Outpatient (REF) | payer OTHER, SELFPAY | END 2023-02-12 13:24 | disposition home or self-care (01) | LOC: HO.LNP 13:23 | PROVIDERS: Visit Provider Otolaryngology | DX: B37.9 Candidiasis, unspecified (principal); B96.89 Other specified bacterial agents as the cause of diseases classified elsewhere; B49 Unspecified mycosis | CPT/HCPCS: 87070; 87102; 87205 ==

== ENCOUNTER 2024-12-15 10:27 | Outpatient (AMB) | payer OTHER, SELFPAY ==
--- NOTE | 2024-12-15 10:37 | MHC.OFFVIS ---
Intake Visit Reasons: 6 Months/ SZ Allergies Iodinated Contrast Media (Contrast Dye) Allergy (Verified 12/15/24 10:43) Shortness of Breath SEAFOOD Allergy (Severe, Uncoded 12/15/24 10:43) HIVES Medication List - Last Reconciled 12/15/24 by Kaylee Corley CNP albuterol sulfate mg inhalation albuterol sulfate 90 mcg/actuation (Ventolin HFA) 2 puffs PO QID PRN alendronate 70 mg PO QWEEK aspirin (Ecotrin Low Strength) 81 mg PO DAILY atorvastatin 10 mg PO DAILY chlorhexidine gluconate 0.12% 15 mL buccal BID 14 days clotrimazole 10 mg mucous membrane 5XD 14 days cyanocobalamin (vitamin B-12) (Vitamin B-12) 1,000 mcg PO DAILY doxycycline hyclate 100 mg PO BID 14 days fluconazole (Diflucan) 100 mg PO DAILY 7 days fluticasone propionate 50 mcg/actuation 2 sprays intranasal DAILY 30 days hydrochlorothiazide 25 mg PO QAM latanoprost 0.005% 0 drps ophthalmic (eye) loratadine (Claritin) 10 mg PO DAILY 30 days lorazepam 0.5 mg PO BID PRN losartan 50 mg PO DAILY Magic Mouthwash Diphen/Lido/Antacid 1:1:1 5 mL PO QID 10 days meclizine 25 mg PO BID meloxicam 7.5 mg PO DAILY methylprednisolone (Medrol (Antolin)) PO PER PKG DIR 6 days montelukast 10 mg PO DAILY nebulizers As directed nystatin 400,000 units (4 mL) PO QID 7 days nystatin 400,000 units (4 mL) PO QID 10 days HPI Comments Details: She was doing okay. She still had some oral thrush symptoms, but better overall. No seizures. Taking meclizine and lorazepam 1/2 tab at bedtime and 1/2 during the day which helps with anxiety. Working with therapist. Sleep was generally okay. No falls. Saw oral surgeon in [place] in 01/2024, had biopsy for oral thrush which had been ongoing since 05/2022. Was having some nightmares and has woken up crying. Wakes up from nightmares shaky and nervous. Low back pain, hip pain, neck pain, muscle spasms in shoulder, neck, and head. Burning in feet. Anxiety attacks relieved by lorazepam. EEG was normal. C-spine MRI was normal. Hx of PE in 05/2015. 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 CAT scan 2008 shows the old craniotomy in the left temporal region and an area of encephalomalacia involving the left frontotemporal region Hx of PE in 05/2015, osteoporosis. [facility] Medical History (Updated 12/15/24 @ 10:42 by Kaylee Corley CNP) Hypertension Lumbar radiculopathy Seizure disorder Anxiety disorder Candidiasis Pulmonary embolism, bilateral Psoriasis Asthma Psoriasis Pulmonary scarring Frequent headaches Social History Alcohol intake: never Patient Tobacco Use Status: Never used Tobacco Physical Exam Const Other: General Appearance:? normal, in no acute distress. Heart:? S1, S2 normal, no murmurs. Lungs:? clear anteriorly and posteriorly. Musculoskeletal:? normal. Extremities:? no edema. Psych:? alert, oriented, cognitive function intact, cooperative with exam. Neuro Other: Abnormal Neurological Findings:?L temporal craniotomy defect. Mental Status: alert and oriented X 3. Normal attention, orientation, memory, and affect. Cranial Nerves: Pupils are equal, round, and reactive to light. External ocular muscles are intact. Visual licea are full, no ptosis. Face is symmetrical, no facial weakness or droop. Facial sensations are normal. Tongue protrudes in midline. Palate elevates symmetrically. Shoulder shrugging is normal Motor Examination: Normal muscle tone, bulk and strength. No atrophy or fasciculations. No drift of the extended upper extremities. DTR 2+. Plantars are flexor. Sensory Exam: Normal light touch, temperature, pinprick, vibration, and joint-position sensations. Rhomberg sign is absent. Coordination: No ataxia. No titubation. Gait Exam: Within normal limits. Cerebellar Signs: [id number] is okay. Extrapyramidal System: No tremor, rigidity with normal facial expressions. No bradykinesia. No bradyphrenia. Normal arm swing and posture. No propulsion or retropulsion. Speech: Normal. 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 Continue meclizine 25mg 1 tablet twice a day. 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 Medications: New lorazepam 0.5 mg orally 1 tablet at bedtime and 1 tablet daily as needed for anxiety; 30 tabs 5RF 30 days Changed From meclizine 25 mg PO BID To meclizine 25 mg PO BID 60 tabs 5RF 30 days Discontinued lorazepam Discontinued Reason: Order 0.5 mg PO BID PRN anxiety Coding Level of Care Code Est Pt Level 4 (04984) Diagnoses Nocturnal myoclonus G47.69 Seizure disorder G40.909 Arterio-venous malformation Q27.30
--- OUTSIDE RECORDS SUMMARY | 2024-12-15 12:17 | XMS_ITS | Clinical Summary ---
Author Organization [facility] Address [address] [place] [address] Phone Care Team Providers Care Machine Tool Mechanic Name Role Phone Rosie Salgado MD Primary Care Provider Allergies Active Allergy Reactions Criticality Noted Date Comments Iodinated Contrast Media 04/17/2016 Shortness of breath Other Hives,Runny nose 10/01/2013 Seafood Seasonal Medications acetaminophen (TYLENOL) 500 mg tablet HISTORIC 0 Active amoxicillin (AMOXIL) 500 mg capsule Take 4 capsules (2,000 mg total) by mouth. HISTORIC 1 HOUR BEFORE DENTAL APPOINTMENT 4 Active diclofenac (VOLTAREN) 1 % topical gel Apply 4 g topically 3 (three) times a day. 4 Active latanoprost (XALATAN) 0.005 % ophthalmic solution at bedtime. 2 Active LORazepam (ATIVAN) 1 mg tablet Take 1 tablet (1 mg total) by mouth 1 (one) time each day. 0 Active multivitamin tablet Take 1 tablet by mouth 1 (one) time each day. Active montelukast (SINGULAIR) 10 mg tabletIndication s:Medicare annual wellness visit, subsequent,Prima ry hypertension,Mix ed hyperlipidemia,A ge-related osteoporosis without current pathological fracture,Chronic anxiety,Open-ang le glaucoma, unspecified glaucoma stage, unspecified laterality, unspecified open-angle glaucoma type,History of colon polyps,Cognitive impairment Take 1 tablet (10 mg total) by mouth at bedtime. Historic 90 tablet 2 5 Active atorvastatin (LIPITOR) 10 mg tabletIndication s:Medicare annual wellness visit, subsequent,Prima ry hypertension,Mix ed hyperlipidemia,A ge-related osteoporosis without current pathological fracture,Chronic anxiety,Open-ang le glaucoma, unspecified glaucoma stage, unspecified laterality, unspecified open-angle glaucoma type,History of colon polyps,Cognitive impairment Take 1 tablet (10 mg total) by mouth at bedtime. 90 tablet 2 5 Active meclizine (ANTIVERT) 25 mg tabletIndication s:Medicare annual wellness visit, subsequent,Prima ry hypertension,Mix ed hyperlipidemia,A ge-related osteoporosis without current pathological fracture,Chronic anxiety,Open-ang le glaucoma, unspecified glaucoma stage, unspecified laterality, unspecified open-angle glaucoma type,History of colon polyps,Cognitive impairment Take 1 tablet (25 mg total) by mouth 3 (three) times a day if needed (for vertigo). 30 tablet 2 5 Active losartan (COZAAR) 50 mg tabletIndication s:Medicare annual wellness visit, subsequent,Prima ry hypertension,Mix ed hyperlipidemia,A ge-related osteoporosis without current pathological fracture,Chronic anxiety,Open-ang le glaucoma, unspecified glaucoma stage, unspecified laterality, unspecified open-angle glaucoma type,History of colon polyps,Cognitive impairment Take 1 tablet (50 mg total) by mouth 1 (one) time each day. 90 tablet 2 5 Active hydroCHLOROthiaz maikol (HYDRODIURIL) 25 mg tabletIndication s:Medicare annual wellness visit, subsequent,Prima ry hypertension,Mix ed hyperlipidemia,A ge-related osteoporosis without current pathological fracture,Chronic anxiety,Open-ang le glaucoma, unspecified glaucoma stage, unspecified laterality, unspecified open-angle glaucoma type,History of colon polyps,Cognitive impairment Take 1 tablet (25 mg total) by mouth 1 (one) time each day. 90 tablet 2 5 Active alendronate (FOSAMAX) 70 mg tablet TAKE ONE TABLET BY MOUTH EVERY 7 DAYS (BULK) 4 tablet 5 5 Active albuterol HFA (PROAIR HFA ; PROVENTIL HFA ; VENTOLIN HFA) 90 mcg/actuation inhalerIndicatio ns:Medicare annual wellness visit, subsequent,Prima ry hypertension,Mix ed hyperlipidemia,A ge-related osteoporosis without current pathological fracture,Chronic anxiety,Open-ang le glaucoma, unspecified glaucoma stage, unspecified laterality, unspecified open-angle glaucoma type,History of colon polyps,Cognitive impairment INHALE 2 PUFFS BY MOUTH EVERY 4 HOURS NEEDED FOR FOR SHORTNESS OF BREATH (BULK) 25.5 g 1 Active Active Problems Problem Noted Date Diagnosed Date Pelvic pain in female 08/24/2024 Assessment & Plan (08/24/2024 1:45 PM EDT): I reassured Nohemy that 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 I recommended she work on constipation as it is likely the cause. She was encouraged to increase fiber, water, and ad a stool softener. If she develops fevers, chills, N/V, blood in stool or urine, or if sx not improving in the next week, should call PCP to consider imaging to rule out diverticulitis. She agreed. Primary hypertension 05/15/2024 Assessment & Plan (09/21/2024 11:35 AM EDT): BP within acceptable range. C/w current meds. Orders: albuterol HFA (PROAIR HFA ; PROVENTIL HFA ; VENTOLIN HFA) 90 mcg/actuation inhaler; Inhale 2 puffs by mouth every 4 (four) hours if needed for shortness of breath. HISTORIC montelukast (SINGULAIR) 10 mg tablet; Take 1 tablet (10 mg total) by mouth at bedtime. Historic atorvastatin (LIPITOR) 10 mg tablet; Take 1 tablet (10 mg total) by mouth at bedtime. meclizine (ANTIVERT) 25 mg tablet; Take 1 tablet (25 mg total) by mouth 3 (three) times a day if needed (for vertigo). losartan (COZAAR) 50 mg tablet; Take 1 tablet (50 mg total) by mouth 1 (one) time each day. hydroCHLOROthiazide (HYDRODIURIL) 25 mg tablet; Take 1 tablet (25 mg total) by mouth 1 (one) time each day. Thyroid stimulating hormone with reflex to free t4 and free t3; Future Vitamin B12; Future Anxiety 02/18/2024 Overview (02/18/2024): Follows at [facility] Cerebral AV malformation 02/18/2024 Chronic headaches 02/18/2024 Hyperlipidemia 02/18/2024 Overview (02/18/2024): 8.8% Assessment & Plan (09/21/2024 11:35 AM EDT): Doing well on statins. Orders: albuterol HFA (PROAIR HFA ; PROVENTIL HFA ; VENTOLIN HFA) 90 mcg/actuation inhaler; Inhale 2 puffs by mouth every 4 (four) hours if needed for shortness of breath. HISTORIC montelukast (SINGULAIR) 10 mg tablet; Take 1 tablet (10 mg total) by mouth at bedtime. Historic atorvastatin (LIPITOR) 10 mg tablet; Take 1 tablet (10 mg total) by mouth at bedtime. meclizine (ANTIVERT) 25 mg tablet; Take 1 tablet (25 mg total) by mouth 3 (three) times a day if needed (for vertigo). losartan (COZAAR) 50 mg tablet; Take 1 tablet (50 mg total) by mouth 1 (one) time each day. hydroCHLOROthiazide (HYDRODIURIL) 25 mg tablet; Take 1 tablet (25 mg total) by mouth 1 (one) time each day. Thyroid stimulating hormone with reflex to free t4 and free t3; Future Vitamin B12; Future Osteoporosis 02/18/2024 Overview (02/18/2024): Fosamax from 01/18- 06/22.restarted 12/24 02/25- osteoporosis- .decreased in lumbar spine- drug holiday from 03/27- recv treatment for 5 yrs. Recheck in 2 yrs Assessment & Plan (09/21/2024 11:35 AM EDT): Fby . On zolendronic acid infusions. Orders: albuterol HFA (PROAIR HFA ; PROVENTIL HFA ; VENTOLIN HFA) 90 mcg/actuation inhaler; Inhale 2 puffs by mouth every 4 (four) hours if needed for shortness of breath. HISTORIC montelukast (SINGULAIR) 10 mg tablet; Take 1 tablet (10 mg total) by mouth at bedtime. Historic atorvastatin (LIPITOR) 10 mg tablet; Take 1 tablet (10 mg total) by mouth at bedtime. meclizine (ANTIVERT) 25 mg tablet; Take 1 tablet (25 mg total) by mouth 3 (three) times a day if needed (for vertigo). losartan (COZAAR) 50 mg tablet; Take 1 tablet (50 mg total) by mouth 1 (one) time each day. hydroCHLOROthiazide (HYDRODIURIL) 25 mg tablet; Take 1 tablet (25 mg total) by mouth 1 (one) time each day. Thyroid stimulating hormone with reflex to free t4 and free t3; Future Vitamin B12; Future Seizure disorder (CMS/HCC V24, CMS/HCC V28) 02/06 Vitamin B12 deficiency 02/18/2024 Malodorous urine 03/15/2022 Overview (02/18/2024): Last Assessment & Plan: Culture sent. Will treat prn. Encouraged her to push fluids. Vaginal discharge 03/15/2022 Overview (02/18/2024): Last Assessment & Plan: No evidence on exam. Perceived discharge could be urine leakage. No evidence of infection. Elevated blood pressure reading 12/15/2020 Overview (02/18/2024): Last Assessment & Plan: Encouraged to follow-up with PCP. Urge incontinence of urine 12/15/2020 Overview (02/18/2024): Last Assessment & Plan: Discussed kegel exercises, avoid bladder irritants and avoid PO fluid 2 hour prior to bedtime and overnight. Patient to return if symptoms do not improve. Tubular adenoma of colon 11/16/2020 Overview (02/18/2024): X 2 CN 11/11/2020, rpt 5 years PND (post-nasal drip) 02/17/2019 Pulmonary nodules 02/17/2019 Scarring of lung 02/17/2019 Chronic low back pain with sciatica 07/15/2017 Snoring 03/05/2017 Overview (02/18/2024): 02/22/2017 Home Sleep Study did not reveal sleep apnea. 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 Encounters Date Type Department Care Team Description 09/21/2024 11:00 AM EDT Office Visit Adult Medicine [address] [phone] Rosie Salgado MD Medicare annual wellness visit, subsequent (Primary Dx); Primary hypertension; Mixed hyperlipidemia; Age-related osteoporosis without current pathological fracture; Chronic anxiety; Open-angle glaucoma, unspecified glaucoma stage, unspecified laterality, unspecified open-angle glaucoma type; History of colon polyps; Cognitive impairment from Last 3 Months Immunizations Name Administration Dates Next Due Influenza Quadravalent, MDCK , 0.5ml, preservative free (Flucelvax) 6mo and older 02/25/2018 Influenza Quadravalent, MDCK , 0.5ml, with preservative (Flucelvax) 6mo and older 12/14/2016 Influenza trivalent, 0.5mL ( Fluad) 65yo and older 01/13/2024,01/09/2023,12/20/2021,01/04 Influenza trivalent, 0.5mL ( Fluzone High-dose) 65yo and older 01/09/2023,12/20/2021,01/05/2020 Influenza trivalent, 0.5mL, preservative free (Fluarix; FluLaval; Fluzone) ages 6mo and older (Afluria) 3 years and older 02/22/2016,01/18/2015,12/22/2012 Influenza trivalent, with pr eservative (Fluzone; Afluria) 6mo and older 01/05/2022,02/22/2016,01/18/2015,12/22 Pneumococcal conjugate 13 va lent (Prevnar 13, PCV13) 2mo and older 07/15/2017 Pneumococcal polysaccharide 23 valent (Pneumovax 23) 2yo and older 12/21/2020,04/20/2015 Tdap Tetanus diptheria acell ular pertussis (Boostrix; Adacel) 7yo and older 11/06/2016 Zoster Live 06/23/2013 Surgical History Surgery Date Site/Laterality Comments OTHER SURGICAL HISTORY PROCEDURE: [place] TRNSRL SKUL BSE/BR STM/CORD BX/DCMP/ SPLT TONGUE; COMMENT: done in 1980 at [facility] done by Dr Warren BREAST BIOPSY Right PROCEDURE: BX BREAST; PERC NEEDLE CORE W/IMAG GUID; COMMENT: rt side COLONOSCOPY 11/11/2020 PROCEDURE: HISTORICAL COLONOSCOPY; COMMENT: 2 x tubular adenomas, rpt 5 years Medical History Medical History Date Comments Asthma DX:Asthma H/O brain surgery DX:H/O brain s urgery; COMMENT: for a blood clot, had craniectomy following a head injury, had seizures several years Anxiety DX:Anxiety Seizure disorder (CMS/HCC V2 4, CMS/HCC V28) DX:Seizure disorder (HCC) Osteoporosis DX:Osteoporosis Chronic headaches DX:Chronic hea daches Hyperlipidemia DX:Hyperlipidemi a Sleep myoclonus DX:Sleep myoclon us Dizziness 03/25/2012 DX:Dizziness 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 Cerebral AV malformation DX:Cere bral AV malformation; COMMENT: s/p avm repair Depression, major 09/17/2012 DX:Depression, major Psoriasis 12/22/2012 DX:Psoriasis Dizziness, nonspecific 06/23/2013 DX:Dizzin ess, nonspecific B12 deficiency 04/21/2015 DX:B12 deficienc y Vitamin B12 deficiency 04/29/2015 DX:Vitami n B12 deficiency Chronic low back pain with sciatica 07/15/2017 DX:Chronic low back pain with sciatica Colon polyps 11/16/2020 DX:Colon polyps; COMMENT: CN 11/11/2020, rpt 5 years Tubular adenoma of colon DX:Tubu lar adenoma of colon Vertigo Family History Medical History Relation Name Comments Diabetes Brother of complic ations ofdiabetes Diabetes Sister 1 due to fabian beteic coma, another sisiter has uncontrolled diabetes Colon cancer Neg Hx Ovarian cancer Neg Hx Relation Name Status Comments Brother Father Sister 1 Sister 2 Social History Tobacco Use Types Packs/Day Years Used Date Smoking Tobacco: Never Smokeless Tobacco: Never Tobacco Cessation:Counseling Given: Not Answered Alcohol Use Standard Drinks/Week Comments No 0 (1 standard drink = 0.6 oz pur e alcohol) Comments No Sex and Gender Information Value Date Recorded Sex Assigned at Not on file Legal Sex Female 8:51 AM EST Gender Identity Not on file Sexual Orientation Not on file Obstetrics History * This document contains information received from the source organization and may not represent a complete record from that organization. Para Term AB IAB SAB Ectopic Multiple Livin g Live Births 7 4 4 0 0 0 0 0 Date Outcome GA Total Labor Labor/2nd/3rd Weight Sex Type Anes PTL Martha A1 A5 Name Clin Term Term Term Term Last Filed Vital Signs Vital Sign Reading Time Taken Comments Blood Pressure 108/56 09/21/2024 10:54 AM EDT Pulse 69 09/21/2024 10:54 AM EDT Temperature 36.3 C (97.3 F) 09/21/2024 10:54 AM EDT Respiratory Rate 16 09/21/2024 10:54 AM EDT Oxygen Saturation 97% 02/22/2024 11:11 AM EST Inhaled Oxygen Concentration - - Weight 81.7 kg (180 lb 3.2 oz) 09/21/2024 10:54 AM EDT Height 150 cm (4' 11.06 ) 09/21/2024 10:54 AM ED T Body Mass Index 36.33 09/21/2024 10:54 AM EDT Plan of Treatment Upcoming Encounters Date Type Department Care Team (Late st Contact Info) Description 02/22/2025 2:30 PM EST Office Visit Adult Medicine - [address] [phone] Austin Mireles PA [address] [place] [address] Health Maintenance Due Date Last Done Comments RSV Immunization Adult Patients (1 - Risk 60-74 years 1-dose series) 2012 Zoster Vaccines (1 of 2) 08/18/2013 06/23/2013 Social Influencers of Health Screening 03/17/2022 COVID-19 Vaccine ( season) 2024 05/04/2021, 07/06/2020 Influenza Vaccine (#1) 2024 , 01/09/2023, 01/09/2023, Additional history exists Hypertension/CHF/CAD Annual BMP Blood Test 07/21/2025 07/21/2024, 05/15/2024, 12/06/2023, Additional history exists Falls Risk Assessment 09/21/2025 09/21/2024 Medicare Annual Wellness Visit 09/21/2025 09/21/2024 Colorectal Cancer Screening: Colonoscopy 11/11/2025 11/11/2020 Breast Cancer Screening 08/10/2026 08/11/19, 08/05/2023, 08/05/2023, Additional history exists DTaP,Tdap,and Td Vaccines (2 - Td or Tdap) 11/06/2026 11/06/2016 Cholesterol Screening (Lipid Panel) 05/15/2029 05/15/2024, 12/03/2022 Osteoporosis Screening (Bone Density Screening) 02/22/2030 02/23/2020, 10/14/2017 Hepatitis C Screening Completed 10/27/2020 Pneumococcal Vaccine: 50+ Years Completed 12/21/2020, 07/15/2017, 04/20/2015 Depression Screening Completed 09/21/2024, 07/03/19 24 HIB Vaccines Aged Out No longer eligi ble based on patient's age to complete this topic HPV Vaccines Aged Out No longer eligi ble based on patient's age to complete this topic Hepatitis A Vaccines Aged Out No long er eligible based on patient's age to complete this topic Hepatitis B Vaccines Aged Out No long er eligible based on patient's age to complete this topic IPV Vaccines Aged Out No longer eligi ble based on patient's age to complete this topic MMR Vaccines Aged Out No longer eligi ble based on patient's age to complete this topic Meningococcal ACWY Vaccine Aged Out N o longer eligible based on patient's age to complete this topic Meningococcal B Vaccine Aged Out No l onger eligible based on patient's age to complete this topic RSV Immunization Patients Under 20 months Aged Out No longer eligible based on patient's age to complete this topic Varicella Vaccines Aged Out No longer eligible based on patient's age to complete this topic Procedures Procedure Name Priority Date/Time Associated Diagnosis Comments VITAMIN B12 Routine 09/21/2024 11:55 AM EDT Medicare annual wellness visit, subsequent Primary hypertension Mixed hyperlipidemia Age-related osteoporosis without current pathological fracture Chronic anxiety Open-angle glaucoma, unspecified glaucoma stage, unspecified laterality, unspecified open-angle glaucoma type History of colon polyps Cognitive impairment THYROID STIMULATING HORMONE WITH REFLEX TO FREE T4 AND FREE T3 Routine 09/21/2024 11:55 AM EDT Medicare annual wellness visit, subsequent Primary hypertension Mixed hyperlipidemia Age-related osteoporosis without current pathological fracture Chronic anxiety Open-angle glaucoma, unspecified glaucoma stage, unspecified laterality, unspecified open-angle glaucoma type History of colon polyps Cognitive impairment MG MAMMO DIGITAL SCREENING W ANTONIO BILAT Routine 08/10/2024 1:15 PM EDT Encounter for screening mammogram for breast cancer COMPREHENSIVE METABOLIC PANEL Routine 07/21/2024 10:05 AM EDT Hyperglycemia CKD stage G3b/A1, GFR 30-44 and albumin creatinine ratio <30 mg/g (CMS/HCC V24, CMS/HCC V28) LIPID PANEL WITH REFLEX TO DIRECT LDL Routine 05/15/2024 1:23 PM EST Primary hypertension Mixed hyperlipidemia Age-related osteoporosis without current pathological fracture Chronic anxiety DEPRESSION SCREENING Routine 07/03/2023 COLONOSCOPY Routine 11/11/2020 HEPATITIS C SCREENING Routine 10/27/2020 DXA BONE DENSITY STUDY 1+ SITS AXIAL SKEL Routine 02/23/2020 1:56 PM EST Age-related osteoporosis without current pathological fracture from Last 3 Months or Most Recently Relevant to Health Maintenance Results * Thyroid stimulating hormone with reflex to free t4 and free t3 (09/21/2024 11:55 AM EDT) TSH 1.28 0.40 - 4.00 mcIU/mL LAB CHEMISTRY METHOD 09/21/2024 4:04 PM EDT [facility] Blood Venous blood specimen / Unknown Venipuncture / Unknown 09/21/2024 11:55 AM EDT 09/21/2024 11:55 AM EDT Rosie Salgado MD LAB BLOOD ORDERABLES F inal Result Performing Organization Address City/[facility]/ZIP Co de Phone Number [facility] [address] [place] [address], [place] [phone] * Vitamin B12 (09/21/2024 11:55 AM EDT) Vitamin B-12 440 250 - 900 pcg/mL LAB CHEMISTRY METHOD 09/21/2024 4:00 PM EDT [facility] Blood Venous blood specimen / Unknown Venipuncture / Unknown 09/21/2024 11:55 AM EDT 09/21/2024 11:55 AM EDT Rosie Salgado MD LAB BLOOD ORDERABLES F inal Result Performing Organization Address [facility] Co de Phone Number [facility] [address] [place] [address], [place] [phone] * MG Mammo Digital Screening w Antonio bilat (08/10/2024 1:15 PM EDT) Anatomical Region Laterality Modality Breast Bilateral Mammography 08/11/2024 7:25 AM EDT Impressions 08/11/2024 7:33 AM EDT Benign. BI-RADS CATEGORY: 1 - NEGATIVE RECOMMENDATION: Screening bilateral mammogram is recommended in 1 year. Mammo Location: [facility], [address] [place] [address], [phone], . -------- FINAL REPORT -------- Dictated By: Zenaida Rapp Dictated Date: 08/11/2024 07:25 ET Assigned Physician: Zenaida Rapp Reviewed and Electronically Signed By: Zenaida Rapp Signed Date: 08/11/2024 07:33 ET Workstation ID: [id number] Transcribed By: Self Edit Transcribed Date: 08/11/2024 07:25 ET Narrative 08/11/2024 7:33 AM EDT CLINICAL: 74 years old, Female, routine annual exam. COMPARISON: Mammograms dating back to 05/05/2020 and most recent of 08/05/2023. TECHNIQUE: Bilateral MLO and CC views were obtained digitally with 3-D mammogram (digital breast tomosynthesis). Computer-aided detection was utilized in evaluation of this exam (CAD). FINDINGS: There is no evidence of suspicious mass or architectural distortion. No worrisome calcifications are evident. There is a biopsy clip in the upper outer right breast and another biopsy clip in the retroareolar right breast. There has been no significant change from prior exam(s). BREAST DENSITY: B - There are scattered areas of fibroglandular density. Procedure Note Zenaida Rapp MD - 08/11/2024 CLINICAL: 74 years old, Female, routine annual exam. COMPARISON: Mammograms dating back to 05/05/2020 and most recent of08/05/2023. TECHNIQUE: Bilateral MLO and CC views were obtained digitally with 3-Dmammogram (digital breast tomosynthesis). Computer-aided detection wasutilized in evaluation of this exam (CAD). FINDINGS: There is no evidence of suspicious mass or architectural distortion. Noworrisome calcifications are evident. There is a biopsy clip in the upperouter right breast and another biopsy clip in the retroareolar rightbreast. There has been no significant change from prior exam(s). BREAST DENSITY: B - There are scattered areas of fibroglandular density. IMPRESSION: Benign. BI-RADS CATEGORY: 1 - NEGATIVE RECOMMENDATION: Screening bilateral mammogram is recommended in 1 year. Mammo Location: [facility], [address] [place] [address], [id number], . -------- FINAL REPORT -------- Dictated By: Zenaida Rapp Dictated Date: 08/11/2024 07:25 ET Assigned Physician: Zenaida Rapp Reviewed and Electronically Signed By: Zenaida Rapp Signed Date: 08/11/2024 07:33 ET Workstation ID: [id number] Transcribed By: Self Edit Transcribed Date: 08/11/2024 07:25 ET us Rosie Salgado MD IMG BI PROCEDURES Quynh l Result * (ABNORMAL) Comprehensive metabolic panel (07/21/2024 10:05 AM EDT) Pathologist [facility] Sodium 137 133 - 145 mmol/L LAB CHEMISTRY METHOD 07/21/2024 1:36 PM [facility] Potassium 6.0(H) 3.5 - 5.5 mmol/L LAB CHEMISTRY METHOD 07/21/2024 1:36 PM [facility] Chloride 108 96 - 110 mmol/L LAB CHEMISTRY METHOD 07/21/2024 1:36 PM [facility] CO2 25 21 - 32 mmol/L LAB CHEMISTRY METHOD 07/21/2024 1:36 PM [facility] Anion Gap 4 3 - 11 LAB CHEMISTRY METHOD 07/21/2024 1:36 PM [facility] Glucose 86 70 - 100 mg/dL LAB CHEMISTRY METHOD 07/21/2024 1:36 PM [facility] BUN 37(H) 5 - 25 mg/dL LAB CHEMISTRY METHOD 07/21/2024 1:36 PM [facility] Creatinine 1.25(H) 0.50 - 1.10 mg/dL LAB CHEMISTRY METHOD 07/21/2024 1:36 PM [facility] eGFR 46(L) >=60 mL/min/1. 73m2 LAB CHEMISTRY METHOD 07/21/2024 1:36 PM [facility] Comment:Calculation based on the Chronic Kidney Disease Epidemiology Collaboration (CKD-EPI) equation refit without adjustment for race. BUN/Creatinine Ratio 29.6 LAB CHEMISTRY METHOD 07/21/2024 1:36 PM EDT [facility] Calcium 9.3 8.5 - 10.5 mg/dL LAB CHEMISTRY METHOD 07/21/2024 1:36 PM [facility] AST (SGOT) 16 10 - 42 unit/L LAB CHEMISTRY METHOD 07/21/2024 1:36 PM [facility] ALT (SGPT) 23 10 - 60 unit/L LAB CHEMISTRY METHOD 07/21/2024 1:36 PM T [facility] Alkaline Phosphatase 56 42 - 121 unit/L LAB CHEMISTRY METHOD 07/21/2024 1:36 PM [facility] Total Protein 6.9 6.0 - 8.0 g/dL LAB CHEMISTRY METHOD 07/21/2024 1:36 PM [facility] Albumin 3.8 3.2 - 5.0 g/dL LAB CHEMISTRY METHOD 07/21/2024 1:36 PM EDT [facility] Total Bilirubin 0.4 0.0 - 1.4 mg/dL LAB CHEMISTRY METHOD 07/21/2024 1:36 PM [facility] Blood Venous blood specimen / Unknown Venipuncture / Unknown 07/21/2024 10:05 AM EDT 07/21/2024 10:05 AM EDT us Rosie Salgado MD LAB BLOOD ORDERABLES F inal Result [facility] [address] [place] [address], * (ABNORMAL) Lipid panel with reflex to direct LDL (05/15/2024 1:23 PM EST) Cholesterol 159 0 - 200 mg/dL LAB CHEMISTRY METHOD 05/15/2024 2:57 PM EST [facility] Triglycerides 212(H) 0 - 150 mg/dL LAB CHEMISTRY METHOD 05/15/2024 2:57 PM EST [facility] HDL 50 >=40 mg/dL LAB CHEMISTRY METHOD 05/15/2024 2:57 PM EST [facility] LDL Calculated 67 0 - 100 mg/dL LAB CHEMISTRY METHOD 05/15/2024 2:57 PM EST [facility] VLDL Cholesterol Bj 42.4 mg/dL LAB CHEMISTRY METHOD 05/15/2024 2:57 PM EST [facility] Non HDL Chol. (LDL+VLDL) 109 <145 mg/dL LAB CHEMISTRY METHOD 05/15/2024 2:57 PM EST [facility] Chol/HDL Ratio 3.2 0.0 - 4.4 LAB CHEMISTRY METHOD 05/15/2024 2:57 PM EST [facility] Blood Venous blood specimen / Unknown Venipuncture / Unknown 05/15/2024 1:23 PM EST 05/15/2024 1:23 PM EST Rosie Salgado MD LAB BLOOD ORDERABLES F inal Result [facility] [address] [place] [address], [place] [phone] * Depression Screening (07/03/2023) Pathologist [facility] Depression Screening abstracted Historical Provider HEALTH MAINTENANCE Final Result * Colonoscopy (11/11/2020) Pathologist [facility] Colonoscopy abnormal, abstracted Anatomical Region Laterality Modality Other Historical Provider HEALTH MAINTENANCE Final Result * Hepatitis C Screening (10/27/2020) Pathologist [facility] Hepatitis C Screening abstracted Historical Provider HEALTH MAINTENANCE Final Result * DXA BONE DENSITY STUDY 1+ SITS AXIAL SKEL (02/23/2020 1:56 PM EST) Anatomical Region Laterality Modality Bone Densitometr y 01/05/2020 2:10 PM EDT Narrative 02/23/2020 4:53 PM EST BONE DENSITY Lumbar Spine T-score is -2.7 (SD relative to 20-29 y/o adult) Z-score is -0.8 (SD relative to age matched peers) This is consistent with osteoporosis by criteria defined by the WHO. Left Hip T-score is -2.6 Z-score is -1.0 This is consistent with osteoporosis by criteria defined by the WHO. Comparison exam(s): significant decrease in bone density of lumbar spine when compared to most recent bone density examination Confidence level is +/-95%. Impression: Based on the World Health Organization criteria, Nohemy Suarez should be classified as having osteoporosis. The [facility] Department of Internal Medicine recommends using National Osteoporosis Foundation (NOF) guidelines in treatment decisions related to osteoporosis. NOF guidelines suggest considering treatment for postmenopausal women and men aged 50 or older presenting with the following: History of hip or vertebral fracture. T-score less than or equal to -2.5 (DXA) at the femoral neck, total hip, or spine, after appropriate evaluation to exclude secondary causes. Low bone mass (T-score between -1.0 and -2.5 at the femoral neck or spine) AND a 10-year probability of a hip fracture greater than or equal to 3% OR a 10-year probability of a major osteoporosis-related fracture greater than or equal to 20% based on the [place]-adapted WHO algorithm Please note that all treatment decisions require clinical judgment and consideration of individual patient factors, including patient preferences, co-morbidities, previous drug use, risk factors not captured in the FRAX model (e.g., frailty, falls, vitamin D deficiency, increased bone turnover, interval significant decline in bone density) and possible under- or over-estimation of fracture risk by FRAX. Procedure Note Fany Lyle MD - 03/27/2022 BONE DENSITY Lumbar Spine T-score is -2.7 (SD relative to 20-29 y/o adult) Z-score is -0.8 (SD relative to age matched peers) This is consistent with osteoporosis by criteria defined by the WHO. Left Hip T-score is -2.6 Z-score is -1.0 This is consistent with osteoporosis by criteria defined by the WHO. Comparison exam(s): significant decrease in bone density of lumbar spinewhen compared to most recent bone density examination Confidence level is +/-95%. Impression: Based on the World Health Organization criteria, Nohemy Suarez shouldbe classified as having osteoporosis. The [facility] Department of Internal Medicine recommendsusing National Osteoporosis Foundation (NOF) guidelines in treatmentdecisions related to osteoporosis. NOF guidelines suggest consideringtreatment for postmenopausal women and men aged 50 or older presentingwith the following: History of hip or vertebral fracture. T-score less than or equal to -2.5 (DXA) at the femoral neck, total hip,or spine, after appropriate evaluation to exclude secondary causes. Low bone mass (T-score between -1.0 and -2.5 at the femoral neck or spine)AND a 10-year probability of a hip fracture greater than or equal to 3% ORa 10-year probability of a major osteoporosis-related fracture greaterthan or equal to 20% based on the [place]-adapted WHO algorithm Please note that all treatment decisions require clinical judgment andconsideration of individual patient factors, including patientpreferences, co-morbidities, previous drug use, risk factors not capturedin the FRAX model (e.g., frailty, falls, vitamin D deficiency, increasedbone turnover, interval significant decline in bone density) and possibleunder- or over-estimation of fracture risk by FRAX. Brenda Cheng MD IM DXA PROCEDURES Quynh l Result from Last 3 Months or Most Recently Relevant to Health Maintenance Insurance [facility] MEDICARE Member Subscriber Plan / Payer (Ef fective 2022-Present) Name:NOHEMY SUAREZ Relation to Subscriber:Self Name:Erick Nohemy Erwin Payer ID:[id number] Group ID:[id number] Type:Not on file Address: [address] [place] [address] Care Teams Machine Tool Mechanic Relationship Specialty Start Date End Date Rosie Salgado MD [address] [place] [id number] PCP - General Internal Medicine 06/05/21
--- OUTSIDE RECORDS SUMMARY | 2024-12-15 12:17 | XMS_ITS | Clinical Summary ---
Author Organization [employer] Address [address] [facility] [address] [place] [address] Care Team Providers Care Funeral Pre Need Consultant Name Role Phone Unavailable Primary Care Provider Unavailabl e Social History Tobacco Use Types Packs/Day Years Used Date Smoking Tobacco: Never Assessed Housing Stability Answer Date Recorded What is your housing situation today? I have chris cheung 02/16/[address] you li ve. Do you have problems with any of the following? None of the above 02/16/2023 Food Insecurity Answer Date Recorded Within the past 12 months, y ou worried that your food would run out before you got money to buy more: Never True 02/16/2023 Within the past 12 months,th e food you bought just didn't last and you didn't have enough money to get more: Never True 02/2023 Transportation Answer Date Recorded In the past 12 months, has l ack of transportation kept you from medical appts, meetings, work or from getting things needed for daily living? No 02/16/2023 Utilities Answer Date Recorded In the past 12 months, has t he electric, gas, oil or water company threatened to shut off services in your home? No 02/16/2023 Comments Unknown Sex and Gender Information Value Date Recorded Sex Assigned at Not on file Legal Sex Female 10:48 AM EST Gender Identity Not on file Sexual Orientation Not on file Plan of Treatment Health Maintenance Due Date Last Done Comments CT Colonography 1952 Colonoscopy 1952 Colorectal Cancer Screening 1952 Depression Screening 1952 FIT DNA/Cologuard 1952 FIT 1952 FOBT 1952 Sigmoidoscopy 1952 Alcohol/Substance Use Screening 1964 Tobacco Screening 1964 Hepatitis C Screening 1970 Mammogram 1992 Zoster Vaccines (2 of 3) 08/18/2013 06/23/2013 SDOH Screening 07/03/2023 07/02/2022 COVID-19 Vaccine ( season) 2024 05/04/2021, 07/06/2020 Influenza Vaccine (#1) 2024 2, 12/20/2021, 01/05/2020, Additional history exists DTaP/Tdap/Td Vaccines (2 - Td or Tdap) 11/06/2026 11/06/2016 RSV Patients and Patients Aged 60 years or older (1 - 1-dose 75+ series) 2027 Pneumococcal Vaccine: 50+ Years Completed 12/21/2020, 07/15/2017, 04/20/2015 HIB Vaccines Aged Out No longer eligi [...] patient's age to complete this topic Meningococcal Vaccine Aged Out No tri marija eligible based on patient's age to complete this topic RSV under 20 months Aged Out No longe r eligible based on patient's age to complete this topic Rotavirus Vaccines Aged Out No longer eligible based on patient's age to complete this topic Insurance [facility] [employer] [place] [phone]
--- OUTSIDE RECORDS SUMMARY | 2024-12-15 12:17 | XMS_ITS | Encounter Summary ---
Author Organization [employer] Address [address] [facility] [address] [place] [address] Care Team Providers Care Line Installation Supervisor Name Role Phone Unavailable Primary Care Provider Unavailabl e Encounter Details Date Type Department Care Team ([facility] st Contact Info) Description 12/18/2022 Abstract [facility] [address] [place] [address] [facility] [address] [place] [address] Social History Tobacco Use Types Packs/Day Years Used Date Smoking Tobacco: Never Assessed Comments Unknown Sex and Gender Information Value Date Recorded Sex Assigned at Not on file Legal Sex Female 10:48 AM EST Gender Identity Not on file Sexual Orientation Not on file documented as of this encounter Plan of Treatment Not on file documented as of this encounter Visit Diagnoses Not on filedocumented in this encounter
== END 2024-12-15 10:57 | disposition home or self-care (01) ==
LOC: HO.HSM 10:27
PROVIDERS: PCP Internal Medicine; Referring Provider Internal Medicine; Visit Provider Registered Nurse
DX: G47.69 Other sleep related movement disorders (principal); G40.909 Epilepsy, unspecified, not intractable, without status epilepticus; Q27.30 Arteriovenous malformation, site unspecified
CPT/HCPCS: 99214

== ENCOUNTER → 2024-12-15 10:27 | Outpatient (BNVA) | payer OTHER, SELFPAY | PROVIDERS: PCP Internal Medicine; Referring Provider Internal Medicine; Visit Provider Registered Nurse | DX: G40.909 Epilepsy, unspecified, not intractable, without status epilepticus (principal); G47.69 Other sleep related movement disorders; Q27.30 Arteriovenous malformation, site unspecified; Z79.82 Long term (current) use of aspirin | CPT/HCPCS: 99212 ==

== ENCOUNTER 2025-03-03 10:27 | Outpatient (AMB) | payer OTHER, SELFPAY ==
--- OUTSIDE RECORDS SUMMARY | 2022-10-29 05:15 | XMS_ITS | Continuity of Care Document ---
Author Organization [facility] Address [address] [place] [address] Phone Care Team Providers Care Fur Comber Name Role Phone Thomas JACKMAN FACS RVT Paul ZARATE Unavailable Unavailable Allergies, Adverse Reactions, Alerts Substance Reaction Status Criticality fish derived Active No Information shellfish derived Active No Informa tion Medications Medication Instructions Dosage Effective Dates (start - stop) Status Comments Eliquis 2.5 mg tablet take 1 tablet twic e a day starting the day before procedures and continue for 1 month after - Active doxycycline monohydrate 100 mg capsule take 1 capsule twice a day starting 2 hours before procedures and continue twice daily for 24 hours post procedures - Active lidocaine-prilocaine 2.5 %-2.5 % topical cream Apply cream to affected area 2 hours before procedures - Active calcipotriene 0.005 % topical cream - Active Breo Ellipta 100 mcg-25 mcg/dose powder for inhalation - Active meclizine 25 mg tablet - Active latanoprost 0.005 % eye drops - Active folic acid 1 mg tablet - Active losartan 50 mg tablet - Active alendronate 70 mg tablet - Active montelukast 10 mg tablet - Active loratadine 10 mg tablet - Active meloxicam 7.5 mg tablet - Active Xatmep 2.5 mg/mL oral solution - Active Procedures Procedure Date Office/Outpt E&M Established 15 Mins Oct Duplex Scan-extrem Veins; Uni/ Endovenous Laser, 1st Vein Endovenous laser vein addon Duplex Scan-extrem Veins; Uni/ Varithena, Single Truncal Vein Endovenous Laser, 1st Vein Offic/outpt E&m Estab 5 Min Trial - Tele medicine Office/Outpt E&M Established 15 Mins Apr Duplex Scan-extrem Veins; Comp Advance Directives Directive Yes / No Effective Date File Name No Information Encounters Encounter Description Practice Location Reason(s) For Visit Diagnoses Date Provider Providers Copied on Encounter Office/Outpt E&M Established 15 Mins [facility] MD QUINTANILLA, [address] [place] [address] [address] [address], [id number], [place] tel:[phone] [facility] Chronic venous htn w oth comp of bilateral low extrm 3 Thomas JACKMAN FACS T ELLIOT Goznalez. [address], [address], [place]. tel:[phone] Referring Provider: Rosie Clancy, [address] [place], [address]. tel:[phone] [facility] MD QUINTANILLA, [address] [place] [address] Dr Lombardo [address] [address], [place], [id number], [place] tel:[phone] [facility] No Information 3 Thomas JACKMAN FACS T ELLIOT Gonzalez. [address] [address], [place], [address], [place]. tel:[phone] Referring Provider: Rosie Clancy, [address] [place], [address]. tel:[phone] [facility] MD QUINTANILLA, [address] [place] [address] [address] Lombardo [address], [id number], [place] tel:[phone] [facility] Encntr for f/u exam aft trtmt for cond oth than malig neoplmVenous insufficiency (chronic) (peripheral) 3 Thomas JACKMAN FACS T RPVI K Carlos. [address] [facility], [address], [place], [address], [place]. [phone] Referring Provider: Rosie Clancy, [address] [place], [address]. tel:[phone] [facility] [facility], [address] [place] [address] [address], [id number], [place] tel:[phone] [facility] [place] Venous insufficiency (chronic) (peripheral) 3 Thomas JACKMAN FACS T RPVI K Carlos. [address], [address], [place], [address], [place]. [phone] Referring Provider: Rosie Clancy, [address] [place], [address]. tel:[phone] [facility], [address] [place] [address] [address], [id number], [place] tel:[phone] [facility] - [place] [facility] [place] Encntr for f/u exam aft trtmt for cond oth than malig neoplmVenous insufficiency (chronic) (peripheral) 3 Thomas JACKMAN FACS T RPVI K Carlos. [address] [facility], [address], [place], [address], [place]. [phone] Referring Provider: Rosie Clancy, [address] [place], [address]. tel:[phone] [facility], [address] [place] [address] [address], [id number], [place] tel:[phone] [facility] [place] Venous insufficiency (chronic) (peripheral) 3 Thomas JACKMAN FACS T RPVI K Carlos. [address], [address], [place], [address], [place]. [phone] Referring Provider: Rosie Clancy, [address] [place], [address]. tel:[phone] [place] [facility], [address] [place] [address] [address] Lombardo [address] [address], [id number], tel:[phone] [facility] [place] Venous insufficiency (chronic) (peripheral) 3 Thomas Gonzalez. [address] [facility], [address] [address], [place], [address], [place]. tel:[phone] Referring Provider: Rosie Clancy, [address] [place], [address]. tel:[phone] [facility] [facility], [address] [place] [address] Dr Lombardo [address] [place], [id number], [place] tel:[phone] [facility] [place] No Information 3 Thomas Gonzalez. [address] [facility], [address] [address], [place], [address], [place]. tel:[phone] Referring Provider: Rosie Clancy, [address] [place], [address]. tel:[phone] Offic/outpt E&m Estab 5 Min Trial - Telemedicine [facility], [address] [place] [address] [address] Lombardo [address] [place], [id number], [place] tel:[phone] [facility] [place] Venous insufficiency (chronic) (peripheral) 3 Thomas Gonzalez. [address] [facility], [address] [address], [place], [address], [place]. tel:[phone] Referring Provider: Rosie Clancy, [address] [place], [address]. tel:[phone] Office/Outpt E&M Established 15 Mins [facility], [address] [place] [address] [address] Lombardo [address] [place], [id number], [place] tel:[phone] [facility] [place] Body mass index (BMI) 39.0-39.9, adultVenous insufficiency (chronic) (peripheral) 3 Thomas JACKMAN FACS [facility] ELLIOT Gonzalez. [address] [facility], [address] [address], [place], [address], [place]. tel:[phone] Referring Provider: Rosie Clancy, [address] [place], [address]. tel:[phone] [facility], [address], [place], [id number], tel:[phone] [facility] Venous insufficiency (chronic) (peripheral) 3 Thomas JACKMAN FACS [facility] ELLIOT Gonzalez. [address] [facility], [address] [address], [place], [address], [place]. tel:[phone] Referring Provider: Rosie Clancy, [address] [place], [address]. tel:[phone] Family History Family Member Type Diagnosis Age At Onset No Information Payers Payer name Insurance type Covered constitution party ID Rafia gordon(s) [facility] CI [id number] Social History Type Description Quantity Date Captured Comments Alcohol Use Details No Caffeine Use Details Unknown Tobacco Use Status Never smoked tobacco 2022 Smoking Status Never smoker Non-Smoking Tobacco Use Details : No Details Available : No Details Available Sex Female Chief Complaint And Reason For Visit No Information Reason For Referral Reason For Referral No Information Plan Of Treatment Date Type Action Status Goal Tobacco cessation counseling completed Goal Tobacco cessation counseling completed Goal Dietary management education , guidance, and counseling completed Goal Dietary management education , guidance, and counseling completed History Of Present Illness Encounter Date Complaint History Of Prese nt Illness No Information Functional Status Date Functional Assessmen t No Information Instructions Date Instruction Additional Infor mation Dietary management e ducation, guidance, and counseling Related to Body mass index [BMI] 39.0-39.9, adult Jose-25-2023 Dietary management e ducation, guidance, and counseling Related to Body mass index [BMI] 39.0-39.9, adult Assessments Type Assessment Date assessment Chronic venous htn w oth comp of bilateral low extrm Patient Care Teams Name Effective Dates (start - stop) Status Members No Information
--- OUTSIDE RECORDS SUMMARY | 2025-02-27 02:10 | XMS_ITS | Encounter Summary ---
Author Organization [employer] Address [address] [place] [address] Care Team Providers Care Mobile Application Architect Name Role Phone Rosie Salgado MD Primary Care Provider Reason for Visit * Reason Comments Shortness of Breath Viral sx since 02/22 and was seen at PCP Encounter Details Date Type Department Care Team (Late st Contact Info) Description 02/27/2025 2:10 AM EST - 02/27/2025 3:47 AM EST Emergency Emergency [address] [place] [id number] Omar Gaston MD [address] [place] [address] Mild intermittent asthma with exacerbation (Primary Dx); Influenza A Discharge Disposition: Home or Self Care Social History Tobacco Use Types Packs/Day Years Used Date Smoking Tobacco: Never Smokeless Tobacco: Never Alcohol Use Standard Drinks/Week Comments No 0 (1 standard drink = 0.6 oz pur e alcohol) Comments No Sex and Gender Information Value Date Recorded Sex Assigned at Not on file Legal Sex Female 8:51 AM EST Gender Identity Not on file Sexual Orientation Not on file documented as of this encounter Last Filed Vital Signs Vital Sign Reading Time Taken Comments Blood Pressure 126/56 02/27/2025 3:35 AM EST Pulse 94 02/27/2025 3:35 AM EST Temperature 36.4 C (97.5 F) 02/27/2025 3:35 AM EST Respiratory Rate 18 02/27/2025 3:35 AM EST Oxygen Saturation 96% 02/27/2025 3:35 AM EST Inhaled Oxygen Concentration - - Weight 83.9 kg (185 lb) 02/27/2025 1:01 AM EST Height 149.9 cm (4' 11 ) 02/27/2025 1:01 AM EST Body Mass Index 37.37 02/27/2025 1:01 AM EST documented in this encounter Functional Status * Calculated C-SSRS Risk Score (Lifetime/Recent) Answer Date of Assessment Author No Risk Indicated 02/27/2025 12:59 AM EST Nimisha Cerna RN * [place] Suicide Severity Rating Scale (Screener/Recent Self-Report) Question Answer Date of Assessment Author 1. Wish to be (Past 1 Month) No 02/27/2025 12:59 AM EST Joselin Mckeon RN documented as of this encounter Discharge Instructions * Discharge Instructions* Omar Gaston MD - 02/27/2025 2:51 AM EST DIAGNOSIS / RESULTS / PROCEDURES (what was done): You came to the ED for difficulty breathing. You are having an asthma exacerbation due to flu A. Your chest x-ray does not show pneumonia. INSTRUCTIONS (what you need to do): Call your primary care doctor tomorrow to discuss when you should be seen next. Your doctor may want to arrange follow up for your visit today, or may ask to see you at your next scheduled visit. If you have difficulty breathing which does not respond to your home medications, return to the ED immediately. MEDICATIONS (what you need to take): Budesonide/formoterol inhaler (brand name Symbicort 80-4.5),1 to 2 puffs twice daily for maintenance, 1 to 2 puffs every 2-4 hours as needed for asthma symptoms. Prednisone daily for 5 days documented in this encounter Medications at Time of Discharge acetaminophen (TYLENOL) 500 mg tablet HISTORIC 01/11/2020 albuterol HFA (PROAIR HFA ; PROVENTIL HFA ; VENTOLIN HFA) 90 mcg/actuation inhalerIndications :Medicare annual wellness visit, subsequent,Primary hypertension,Mixed hyperlipidemia,Age -related osteoporosis without current pathological fracture,Chronic anxiety,Open-angle glaucoma, unspecified glaucoma stage, unspecified laterality, unspecified open-angle glaucoma type,History of colon polyps,Cognitive impairment INHALE 2 PUFFS BY MOUTH EVERY 4 HOURS NEEDED FOR FOR SHORTNESS OF BREATH (BULK) 25.5 g 1 11/13/2024 atorvastatin (LIPITOR) 10 mg tabletIndications: Medicare annual wellness visit, subsequent,Primary hypertension,Mixed hyperlipidemia,Age -related osteoporosis without current pathological fracture,Chronic anxiety,Open-angle glaucoma, unspecified glaucoma stage, unspecified laterality, unspecified open-angle glaucoma type,History of colon polyps,Cognitive impairment Take 1 tablet (10 mg total) by mouth at bedtime. 90 tablet 2 09/21/2024 budesonide-formote roL (SYMBICORT) 80-4.5 mcg/actuation inhaler Inhale 2 puffs by mouth 2 (two) times a day. Rinse mouth with water after use to reduce aftertaste and incidence of candidiasis. Do not swallow. 1 each 2 02/22/2025 chlorhexidine (PERIDEX) 0.12 % solution Use 15 mL in the mouth or throat 1 (one) time each day. 473 mL 02/22/2025 hydroCHLOROthiazid e (HYDRODIURIL) 25 mg tabletIndications: Medicare annual wellness visit, subsequent,Primary hypertension,Mixed hyperlipidemia,Age -related osteoporosis without current pathological fracture,Chronic anxiety,Open-angle glaucoma, unspecified glaucoma stage, unspecified laterality, unspecified open-angle glaucoma type,History of colon polyps,Cognitive impairment Take 1 tablet (25 mg total) by mouth 1 (one) time each day. 90 tablet 2 09/21/2024 latanoprost (XALATAN) 0.005 % ophthalmic solution at bedtime. 01/14/2022 LORazepam (ATIVAN) 1 mg tablet Take 1 tablet (1 mg total) by mouth 1 (one) time each day. 12/24/2019 losartan (COZAAR) 50 mg tabletIndications: Medicare annual wellness visit, subsequent,Primary hypertension,Mixed hyperlipidemia,Age -related osteoporosis without current pathological fracture,Chronic anxiety,Open-angle glaucoma, unspecified glaucoma stage, unspecified laterality, unspecified open-angle glaucoma type,History of colon polyps,Cognitive impairment Take 1 tablet (50 mg total) by mouth 1 (one) time each day. 90 tablet 2 09/21/2024 meclizine (ANTIVERT) 25 mg tabletIndications: Medicare annual wellness visit, subsequent,Primary hypertension,Mixed hyperlipidemia,Age -related osteoporosis without current pathological fracture,Chronic anxiety,Open-angle glaucoma, unspecified glaucoma stage, unspecified laterality, unspecified open-angle glaucoma type,History of colon polyps,Cognitive impairment Take 1 tablet (25 mg total) by mouth 3 (three) times a day if needed for dizziness. 270 tablet 01/14/2025 meloxicam (MOBIC) 7.5 mg tablet 12/13/2024 montelukast (SINGULAIR) 10 mg tabletIndications: Medicare annual wellness visit, subsequent,Primary hypertension,Mixed hyperlipidemia,Age -related osteoporosis without current pathological fracture,Chronic anxiety,Open-angle glaucoma, unspecified glaucoma stage, unspecified laterality, unspecified open-angle glaucoma type,History of colon polyps,Cognitive impairment Take 1 tablet (10 mg total) by mouth at bedtime. Historic 90 tablet 2 09/21/2024 multivitamin tablet Take 1 tablet by mouth 1 (one) time each day. predniSONE (DELTASONE) 50 mg tablet Take 1 tablet (50 mg total) by mouth 1 (one) time each day for 5 days. 5 each 02/27/2025 zoledronic acid 4 mg recon soln Infuse into a venous catheter. documented as of this encounter Ordered Prescriptions Prescription Sig Dispense Quantity Refills Last Filled Start Date End Date predniSONE (DELTASONE) 50 mg tablet Take 1 tablet (50 mg total) by mouth 1 (one) time each day for 5 days. 5 each 02/27/2025 03/04/2025 documented in this encounter Discharge Disposition Disposition Code Departure Means Destination Comment s Home or Self Care documented in this encounter Progress Notes * Nimisha Mckeon RN - 02/27/2025 12:59 AM EST Pt presents to ed d/t sob, non productive cough and sore throat, garay, chills. Pt unsure of fever, took tylenol around 1700. Pt used inhaler with no relief. Pt speaking in complete and clear sentences at this time Pmhx asthma * Omar Gaston MD - 02/27/2025 12:56 AM EST Emergency Medicine Note Patient Name: Nohemy Suarez Initial Evaluation: 02/27/2025 : 1950 Patient's PCP: Rosie Salgado MD Emergency Physician: Omar Gaston MD History of Present Illness Chief Complaint: Chief Complaint Patient presents with Shortness of Breath Viral sx since 02/22 and was seen at PCP HPI: 74-year-old female with a history of asthma presents for cough sore throat headache chills forthe last 4 to 5 days. Has been using inhaler with no relief. Referred to pulmonology, but appointment is not until next month. No chest pain. Previous History Medical History[1] Surgical History[2] Social History[3] Family History[4] is allergic to iodinated contrast media and other. Medications Ordered Prior to Encounter[5] Physical Exam ED Triage Vitals [02/27/25 0101] Temp Heart Rate Resp BP 37.1 ??C (98.8 ??F) 90 18 (!) 148/68 SpO2 Temp Source Heart Rate Source Patient Position 97 % Oral Monitor Sitting BP Location FiO2 (%) Right arm -- GENERAL: Well-Appearing SKIN: Warm, dry, normal for ethnicity. No rashes. HEENT: Normal sclera, noninjected nonicteric CHEST: Normal peripheral perfusion, no edema PULMONARY: Normal respiratory effort, no audible wheeze ABDOMINAL: Nondistended NEURO: Alert and oriented, moving all extremities equally PSYCHIATRIC: Normal affect, fluid speech, good eye contact and appropriate demeanor. Results Labs Reviewed RESPIRATORY VIRUS PANEL MOLECULAR STUDY - Abnormal Result Value Adenovirus Detection by PCR Not Detected Influenza B PCR Not Detected Coronavirus 229E Not Detected Coronavirus HKU1 Not Detected Coronavirus OC43 Not Detected Coronavirus NL63 Not Detected Parainfluenza Virus 1 Not Detected Parainfluenza Virus 2 Not Detected Parainfluenza Virus 3 Not Detected Parainfluenza Virus 4 Not Detected RSV PCR Not Detected Human Metapneumovirus A and B Not Detected Rhinovirus/Enterovirus Not Detected Bordetella pertussis Not Detected Bordetella parapertussis Not Detected Influenza A H1N1 PDM09 Detected (*) Mycoplasma pneumo by PCR Not Detected Chlamydia pneumoniae Not Detected SARS COV-2 Not Detected Narrative: Testing was performed using the [employer] Respiratory Pathogen PCR Assay. All results must be correlated with the clinical findings. Results should not be used as the sole basis for diagnosis. False Negative results may occur from the presence of sequence variants in the region targeted by the assay or the presence of inhibitors. Results may be affected by concurrent antiviral/antimicrobial therapy or levels of organisms that are below the limit of detection. BASIC METABOLIC PANEL - Abnormal Sodium 141 Potassium 4.2 Chloride 104 CO2 29 Anion Gap 8 Glucose 99 BUN 21 Creatinine 1.14 (*) eGFR 51 (*) BUN/Creatinine Ratio 18.4 Calcium 8.1 (*) CBC WITH AUTO DIFFERENTIAL - Abnormal WBC 6.6 RBC 3.80 Hemoglobin 11.2 (*) Hematocrit 35.7 MCV 93.5 MCH 29.3 MCHC 31.4 (*) RDW 12.9 Platelets 241 MPV 10.7 NRBC 0.0 NRBC Absolute 0.00 Neutrophils Relative 67.8 Lymphocytes Relative 12.7 Monocytes Relative 14.7 Eosinophils Relative 4.0 Basophils Relative 0.6 Immature Granulocytes Relative 0.2 Neutrophils Absolute 4.45 Lymphocytes Absolute 0.83 (*) Monocytes Absolute 0.96 Eosinophils Absolute 0.26 Basophils Absolute 0.04 Immature Granulocytes Absolute 0.01 B-TYPE NATRIURETIC PEPTIDE - Normal BNP 53 Narrative: Over the counter supplements containing high doses of biotin may interfere with this assay. If interference is suspected, patients shoud be retested after refraining from biotin supplements for 72 hours. CBC AND DIFFERENTIAL Narrative: The following orders were created for panel order CBC and differential. Procedure Abnormality Status --------- ------ CBC auto differential[[id number]] Abnormal Final result Please view results for these tests on the individual orders. Abnormal Labs Reviewed RESPIRATORY VIRUS PANEL MOLECULAR STUDY - Abnormal; Notable for the following components: Result Value Influenza A H1N1 PDM09 Detected (*) All other components within normal limits Narrative: Testing was performed using the [employer] Respiratory Pathogen PCR Assay. All results must be correlated with the clinical findings. Results should not be used as the sole basis for diagnosis. False Negative results may occur from the presence of sequence variants in the region targeted by the assay or the presence of inhibitors. Results may be affected by concurrent antiviral/antimicrobial therapy or levels of organisms that are below the limit of detection. BASIC METABOLIC PANEL - Abnormal; Notable for the following components: Creatinine 1.14 (*) eGFR 51 (*) Calcium 8.1 (*) All other components within normal limits CBC WITH AUTO DIFFERENTIAL - Abnormal; Notable for the following components: Hemoglobin 11.2 (*) MCHC 31.4 (*) Lymphocytes Absolute 0.83 (*) All other components within normal limits XR Chest 2 Views (Results Pending) I have discussed the incidental/abnormal imaging and/or lab abnormalities with the patient and haveinstructed them the need for further evaluation and workup with their primary care doctor. Medical Decision Making Differential Diagnosis: Asthma exacerbation, viral syndrome, pneumonia, CHF, anemia MDM: 74-year-old female a history of asthma presents with shortness of breath headache chills. Likely asthma exacerbation, steroids and updraft ordered. Possible viral syndrome evaluate long viral panel. Possible pneumonia, evaluate chest x-ray. Low suspicion for CHF appears euvolemic on exam. Isolated anemia less likely, evaluate CBC. Clinical Impression: Asthma exacerbation SEPSIS Exemption: [ x ] It is unlikely this patient has sepsis at the time of my evaluation. Medications predniSONE (DELTASONE) tablet 60 mg (60 mg oral Given 02/27/25303) ipratropium-albuteroL (DUONEB) 0.5-2.5 mg/3 mL nebulizer solution 3 mL (3 mL nebulization Given 02/27/25303) ED Course as of 02/27/25338 Sat Feb 27, 20257 XR Chest 2 Views My independent review and interpretation of chest x-ray: No pneumonia or pneumothorax, no consolidation or infiltrate. [MG] 0247 Lung viral panel positive for flu A. No white count. BNP normal, CHF unlikely. Normal electrolytes, renal function at baseline. [MG] 0338 Patient states breathing is improved after updraft. Will discharge with prescription for prednisone. [MG] ED Course User Index [MG] Omar Gaston MD Clinical Impressions as of 02/27/25 033 Mild intermittent asthma with exacerbation Influenza A Procedures Procedures Diagnosis 1. Mild intermittent asthma with exacerbation 2. Influenza A Disposition Discharge ED Prescriptions Medication Sig Dispense Start Date End Date Auth. Provider predniSONE (DELTASONE) 50 mg tablet Take 1 tablet (50 mg total) by mouth 1 (one) time each day for 5 days. 5 each 02/27/2025 03/04/2025 MD Omar Gil MD 02/27/25 0250 [1] Past Medical History: Diagnosis Date Anxiety DX:Anxiety Asthma DX:Asthma B12 deficiency 04/21/2015 DX:B12 deficiency Cerebral AV malformation DX:Cerebral AV malformation; COMMENT: s/p avm repair Chronic headaches DX:Chronic headaches Chronic low back pain with sciatica 07/15/2017 DX:Chronic low back pain with sciatica Colon polyps 11/16/2020 DX:Colon polyps; COMMENT: CN 11/11/2020, rpt 5 years Depression, major 09/17/2012 DX:Depression, major Dizziness 03/25/2012 DX:Dizziness Dizziness, nonspecific 06/23/2013 DX:Dizziness, nonspecific H/O brain surgery DX:H/O brain surgery; COMMENT: for a blood clot, had craniectomy following a head injury, had seizures several years Hyperlipidemia DX:Hyperlipidemia 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 Osteoporosis DX:Osteoporosis Psoriasis 12/22/2012 DX:Psoriasis Seizure disorder (CMS/HCC V24, CMS/HCC V28) DX:Seizure disorder (HCC) Sleep myoclonus DX:Sleep myoclonus Tubular adenoma of colon DX:Tubular adenoma of colon Vertigo Vitamin B12 deficiency 04/29/2015 DX:Vitamin B12 deficiency [2] Past Surgical History: Procedure Laterality Date BREAST BIOPSY Right PROCEDURE: BX BREAST; PERC NEEDLE CORE W/IMAG GUID; COMMENT: rt side COLONOSCOPY 11/11/2020 PROCEDURE: HISTORICAL COLONOSCOPY; COMMENT: 2 x tubular adenomas, rpt 5 years OTHER SURGICAL HISTORY PROCEDURE: DC TRNSRL SKUL BSE/BR STM/CORD BX/DCMP/ SPLT TONGUE; COMMENT: done in [address] [facility] [address] [3] Social History Tobacco Use Smoking status: Never Smokeless tobacco: Never Substance Use Topics Alcohol use: No Drug use: Never [4] Family History Problem Relation Name Age of Onset Diabetes Brother of complications ofdiabetes Diabetes Sister due to diabeteic coma, another sisiter has uncontrolled diabetes Colon cancer Neg Hx Ovarian cancer Neg Hx [5] No current facility-administered medications on file prior to encounter. Current Outpatient Medications on File Prior to Encounter Medication Sig Dispense Refill acetaminophen (TYLENOL) 500 mg tablet HISTORIC albuterol HFA (PROAIR HFA ; PROVENTIL HFA ; VENTOLIN HFA) 90 mcg/actuation inhaler INHALE 2 PUFFS BY MOUTH EVERY 4 HOURS NEEDED FOR FOR SHORTNESS OF BREATH (BULK) 25.5 g 1 atorvastatin (LIPITOR) 10 mg tablet Take 1 tablet (10 mg total) by mouth at bedtime. 90 tablet 2 budesonide-formoteroL (SYMBICORT) 80-4.5 mcg/actuation inhaler Inhale 2 puffs by mouth 2 (two) times a day. Rinse mouth with water after use to reduce aftertaste and incidence of candidiasis. Do not swallow. 1 each 2 chlorhexidine (PERIDEX) 0.12 % solution Use 15 mL in the mouth or throat 1 (one) time each day. 473mL 0 hydroCHLOROthiazide (HYDRODIURIL) 25 mg tablet Take 1 tablet (25 mg total) by mouth 1 (one) time each day. 90 tablet 2 latanoprost (XALATAN) 0.005 % ophthalmic solution at bedtime. LORazepam (ATIVAN) 1 mg tablet Take 1 tablet (1 mg total) by mouth 1 (one) time each day. losartan (COZAAR) 50 mg tablet Take 1 tablet (50 mg total) by mouth 1 (one) time each day. 90 tablet 2 meclizine (ANTIVERT) 25 mg tablet Take 1 tablet (25 mg total) by mouth 3 (three) times a day if needed for dizziness. 270 tablet 0 meloxicam (MOBIC) 7.5 mg tablet montelukast (SINGULAIR) 10 mg tablet Take 1 tablet (10 mg total) by mouth at bedtime. Historic 90 tablet 2 multivitamin tablet Take 1 tablet by mouth 1 (one) time each day. zoledronic acid 4 mg recon soln Infuse into a venous catheter. [DISCONTINUED] alendronate (FOSAMAX) 70 mg tablet TAKE ONE TABLET BY MOUTH EVERY 7 DAYS (BULK) 4 tablet 5 [DISCONTINUED] amoxicillin (AMOXIL) 500 mg capsule Take 4 capsules (2,000 mg total) by mouth. HISTORIC 1 HOUR BEFORE DENTAL APPOINTMENT (Patient not taking: Reported on 02/22/2025) [DISCONTINUED] chlorhexidine (PERIDEX) 0.12 % solution Use 15 mL in the mouth or throat 1 (one) time each day. 473 mL 0 [DISCONTINUED] diclofenac (VOLTAREN) 1 % topical gel Apply 4 g topically 3 (three) times a day. (Patient not taking: Reported on 02/22/2025) Omar Gaston MD 02/27/25 0339 documented in this encounter Plan of Treatment Upcoming Encounters Date Type Department Care Team (Late st Contact Info) Description 03/05/2025 11:45 AM EST Appointment Pulmonary [address] [place] [id number] 09/23/2025 11:00 AM EDT Office Visit Adult Medicine - [address] [phone] Rosie Salgado MD [address] [place] [address] documented as of this encounter Procedures Procedure Name Priority Date/Time Associated Diagnosis Comments CBC WITH AUTO DIFFERENTIAL STAT 02/27/2025 2:18 AM EST CBC AND DIFFERENTIAL STAT 02/27/2025 2:18 AM EST B-TYPE NATRIURETIC PEPTIDE STAT 02/27/2025 2:18 AM EST BASIC METABOLIC PANEL STAT 02/27/2025 2:18 AM EST XR CHEST 2 VIEWS STAT 02/27/2025 1:14 AM EST RESPIRATORY VIRUS PANEL MOLECULAR STUDY STAT 02/27/2025 1:04 AM EST documented in this encounter Results * (ABNORMAL) CBC auto differential (02/27/2025 2:18 AM EST) WBC 6.6 4.8 - 10.8 K/mcL LAB HEMETOLOGY METHOD 02/27/2025 2:32 AM EST [facility] RBC 3.80 3.80 - 4.80 M/mcL LAB HEMETOLOGY METHOD 02/27/2025 2:32 AM [facility] Hemoglobin 11.2(L) 11.5 - 16.0 g/dL LAB HEMETOLOGY METHOD 02/27/2025 2:32 AM [facility] Hematocrit 35.7 35.0 - 47.0 % LAB HEMETOLOGY METHOD 02/27/2025 2:32 AM [facility] MCV 93.5 79.0 - 98.0 FL LAB HEMETOLOGY METHOD 02/27/2025 2:32 AM [facility] MCH 29.3 27.0 - 32.0 pcg LAB HEMETOLOGY METHOD 02/27/2025 2:32 AM [facility] MCHC 31.4(L) 32.0 - 37.0 g/dL LAB HEMETOLOGY METHOD 02/27/2025 2:32 AM [facility] RDW 12.9 11.0 - 15.0 % LAB HEMETOLOGY METHOD 02/27/2025 2:32 AM [facility] Platelets 241 130 - 400 K/mcL LAB HEMETOLOGY METHOD 02/27/2025 2:32 AM [facility] MPV 10.7 7.0 - 11.0 FL LAB HEMETOLOGY METHOD 02/27/2025 2:32 AM [facility] NRBC 0.0 <1.0 % LAB HEMETOLOGY METHOD 02/27/2025 2:32 AM [facility] NRBC Absolute 0.00 <0.10 K/mcL LAB HEMETOLOGY METHOD 02/27/2025 2:32 AM [facility] Neutrophils Relative 67.8 % LAB HEMETOLOGY METHOD 02/27/2025 2:32 AM [facility] Lymphocytes Relative 12.7 % LAB HEMETOLOGY METHOD 02/27/2025 2:32 AM [facility] Monocytes Relative 14.7 % LAB HEMETOLOGY METHOD 02/27/2025 2:32 AM [facility] Eosinophils Relative 4.0 % LAB HEMETOLOGY METHOD 02/27/2025 2:32 AM [facility] Basophils Relative 0.6 % LAB HEMETOLOGY METHOD 02/27/2025 2:32 AM [facility] Immature Granulocytes Relative 0.2 % LAB HEMETOLOGY METHOD 02/27/2025 2:32 AM [facility] Neutrophils Absolute 4.45 1.50 - 7.00 K/mcL LAB HEMETOLOGY METHOD 02/27/2025 2:32 AM [facility] Lymphocytes Absolute 0.83(L) 1.00 - 5.00 K/mcL LAB HEMETOLOGY METHOD 02/27/2025 2:32 AM [facility] Monocytes Absolute 0.96 0.20 - 1.00 K/mcL LAB HEMETOLOGY METHOD 02/27/2025 2:32 AM [facility] Eosinophils Absolute 0.26 0.00 - 0.50 K/mcL LAB HEMETOLOGY METHOD 02/27/2025 2:32 AM [facility] Basophils Absolute 0.04 0.00 - 0.20 K/mcL LAB HEMETOLOGY METHOD 02/27/2025 2:32 AM [facility] Immature Granulocytes Absolute 0.01 0.00 - 0.03 K/mcL LAB HEMETOLOGY METHOD 02/27/2025 2:32 AM [facility] Blood Venous blood specimen / Unknown Venipuncture / Unknown 02/27/2025 2:18 AM EST 02/27/2025 2:25 AM EST us [facility] LAB BLOOD ORDERABLES Final Result [facility] [address] [place] [address], * B-type natriuretic peptide (02/27/2025 2:18 AM EST) [facility] BNP 53 <=100 pcg/mL 02/27/2025 2:50 AM EST [facility] Blood Venous blood specimen / Unknown Venipuncture / Unknown 02/27/2025 2:18 AM EST 02/27/2025 2:25 AM EST Narrative [facility] - 02/27/2025 2:50 AM EST Over the counter supplements containing high doses of biotin may interfere with this assay. If interference is suspected, patients shoud be retested after refraining from biotin supplements for 72 hours. [facility] LAB BLOOD ORDERABLES Final Result [facility] [address] [place] [address], * (ABNORMAL) Basic metabolic panel (02/27/2025 2:18 AM EST) [facility] Sodium 141 133 - 145 mmol/L 02/27/2025 2:57 AM [facility] Potassium 4.2 3.5 - 5.5 mmol/L 02/27/2025 2:57 AM [facility] Chloride 104 96 - 110 mmol/L 02/27/2025 2:57 AM [facility] CO2 29 21 - 32 mmol/L 02/27/2025 2:57 AM [facility] Anion Gap 8 3 - 11 02/27/2025 2:57 AM [facility] Glucose 99 70 - 100 mg/dL 02/27/2025 2:57 AM [facility] BUN 21 5 - 25 mg/dL 02/27/2025 2:57 AM EST [facility] Creatinine 1.14(H) 0.50 - 1.10 mg/dL 02/27/2025 2:57 AM EST [facility] eGFR 51(L) >=60 mL/min/1. 73m2 02/27/2025 2:57 AM EST [facility] Comment:Calculation based on the Chronic Kidney Disease Epidemiology Collaboration (CKD-EPI) equation refit without adjustment for race. BUN/Creatinine Ratio 18.4 02/27/2025 2:57 AM EST [facility] Calcium 8.1(L) 8.5 - 10.5 mg/dL 02/27/2025 2:57 AM [facility] Blood Venous blood specimen / Unknown Venipuncture / Unknown 02/27/2025 2:18 AM EST 02/27/2025 2:25 AM EST [facility] LAB BLOOD ORDERABLES Final Result [facility] [address] [place] [address], * XR Chest 2 Views (02/27/2025 1:14 AM EST) Anatomical Region Laterality Modality Body Radiographic Ana M ging 02/27/2025 8:52 AM EST Impressions 02/27/2025 8:53 AM EST No acute findings. -------- FINAL REPORT -------- Dictated By: Jt Dong Dictated Date: 02/27/2025 08:52 ET Assigned Physician: Jt Dong Reviewed and Electronically Signed By: Jt Dong Signed Date: 02/27/2025 08:53 ET Workstation ID: [id number] Transcribed By: Self Edit Transcribed Date: 02/27/2025 08:52 ET Narrative 02/27/2025 8:53 AM EST PROCEDURE: PA and lateral radiographs of the chest. HISTORY: dyspnea. COMPARISON: 02/22/2024. FINDINGS: Hazy opacity at the left base suggestive of a prominent pericardial fat pad. Bones appear demineralized. Mild degenerative changes of the spine and acromioclavicular joints. Lungs, pleural spaces, and pulmonary vasculature are normal. Procedure Note Jt Dong MD - 02/27/2025 PROCEDURE: PA and lateral radiographs of the chest. HISTORY: dyspnea. COMPARISON: 02/22/2024. FINDINGS: Hazy opacity at the left base suggestive of a prominent pericardial fatpad. Bones appear demineralized. Mild degenerative changes of the spineand acromioclavicular joints. Lungs, pleural spaces, and pulmonaryvasculature are normal. IMPRESSION: No acute findings. -------- FINAL REPORT -------- Dictated By: Jt Dong Dictated Date: 02/27/2025 08:52 ET Assigned Physician: Jt Dong Reviewed and Electronically Signed By: Jt Dong Signed Date: 02/27/2025 08:53 ET Workstation ID: [id number] Transcribed By: Self Edit Transcribed Date: 02/27/2025 08:52 ET [facility] IMG XR PROCEDURES Final Res ult * (ABNORMAL) Respiratory virus panel molecular study (02/27/2025 1:04 AM EST) Adenovirus Detection by PCR Not Detected Not Detected LAB MICROBIOLOGY METHOD 02/27/2025 2:15 AM [facility] Influenza B PCR Not Detected Not Detected LAB MICROBIOLOGY METHOD 02/27/2025 2:15 AM [facility] Coronavirus 229E Not Detected Not Detected LAB MICROBIOLOGY METHOD 02/27/2025 2:15 AM [facility] Coronavirus HKU1 Not Detected Not Detected LAB MICROBIOLOGY METHOD 02/27/2025 2:15 AM [facility] Coronavirus OC43 Not Detected Not Detected LAB MICROBIOLOGY METHOD 02/27/2025 2:15 AM [facility] Coronavirus NL63 Not Detected Not Detected LAB MICROBIOLOGY METHOD 02/27/2025 2:15 AM [facility] Parainfluenza Virus 1 Not Detected Not Detected LAB MICROBIOLOGY METHOD 02/27/2025 2:15 AM [facility] Parainfluenza Virus 2 Not Detected Not Detected LAB MICROBIOLOGY METHOD 02/27/2025 2:15 AM [facility] Parainfluenza Virus 3 Not Detected Not Detected LAB MICROBIOLOGY METHOD 02/27/2025 2:15 AM [facility] Parainfluenza Virus 4 Not Detected Not Detected LAB MICROBIOLOGY METHOD 02/27/2025 2:15 AM [facility] RSV PCR Not Detected Not Detected LAB MICROBIOLOGY METHOD 02/27/2025 2:15 AM [facility] Human Metapneumovirus A and B Not Detected Not Detected LAB MICROBIOLOGY METHOD 02/27/2025 2:15 AM [facility] Rhinovirus/Entero virus Not Detected Not Detected LAB MICROBIOLOGY METHOD 02/27/2025 2:15 AM [facility] Bordetella pertussis Not Detected Not Detected LAB MICROBIOLOGY METHOD 02/27/2025 2:15 AM [facility] Bordetella parapertussis Not Detected Not Detected LAB MICROBIOLOGY METHOD 02/27/2025 2:15 AM [facility] Influenza A H1N1 PDM09 Detected(A ) Not Detected LAB MICROBIOLOGY METHOD 02/27/2025 2:15 AM [facility] Mycoplasma pneumo by PCR Not Detected Not Detected LAB MICROBIOLOGY METHOD 02/27/2025 2:15 AM [facility] Chlamydia pneumoniae Not Detected Not Detected LAB MICROBIOLOGY METHOD 02/27/2025 2:15 AM [facility] SARS COV-2 Not Detected Not Detected LAB MICROBIOLOGY METHOD 02/27/2025 2:15 AM [facility] Swab Both anterior nares / Unknown Non-blood Collection / Unknown 02/27/2025 1:04 AM EST 02/27/2025 1:18 AM EST Narrative [facility] - 02/27/2025 2:15 AM EST Testing was performed using the [employer] Respiratory Pathogen PCR Assay. All results must be correlated with the clinical findings. Results should not be used as the sole basis for diagnosis. False Negative results may occur from the presence of sequence variants in the region targeted by the assay or the presence of inhibitors. Results may be affected by concurrent antiviral/antimicrobial therapy or levels of organisms that are below the limit of detection. us [facility] LAB MICROBIOLOGY - GENERAL ORDERABLES Final Result [facility] [address] [place] [address], documented in this encounter Visit Diagnoses Diagnosis Mild intermittent asthma with exacerbation- Primary Unspecified asthma, with exacerbation Influenza A Influenza with other respiratory manifestations documented in this encounter Administered Medications Inactive Administered Medications - up to 3 most recent administrations Medication Order MAR Action Action Date Dose Rate Site ipratropium-albuteroL (DUONEB) 0.5-2.5 mg/3 mL nebulizer solution 3 mL 3 mL, nebulization, Once, On 02/27/25 at 0249, For 1 dose Given 02/27/2025 3:04 AM EST 3 mL predniSONE (DELTASONE) tablet 60 mg 60 mg, oral, Once, On 02/27/25 at 0249, For 1 dose Given 02/27/2025 3:04 AM EST 60 mg documented in this encounter Active and Recently Administered Medications Times are shown in EST. Scheduled Medication Order 02/25/2025 02/26/2025 02/27/2025 ipratropium-albuteroL (DUONEB) 0.5-2.5 mg/3 mL nebulizer solution 3 mL (COMPLETED) 3 mL, nebulization, Once, On 02/27/25 at 0249, For 1 dose 0304 (Given - Provid er: Emma Rodriguez RN) predniSONE (DELTASONE) tablet 60 mg (COMPLETED) 60 mg, oral, Once, On 02/27/25 at 0249, For 1 dose 0304 (Given - Provid er: Emma Rodriguez RN) documented in this encounter Additional Health Concerns Infection Onset Date Last Indicated Resolved Time Respiratory Rule-Out 02/27/2025 02/27/2025 025 2:15 AM EST COVID-19 Rule-Out 02/27/2025 02/27/2025 02/27/2025 2:15 AM EST Influenza 02/27/2025 02/27/2025 Assessment Noted Time PHQ-9 Depression Total Score: 0 09/22/19 11:16 AM EDT documented as of this encounter Care Teams Mobile Application Architect Relationship Specialty Start Date End Date Rosie Salgado MD [address] [place] [id number] PCP - General Internal Medicine 06/05/21 documented as of this encounter
[2025-03-03 10:29] VITALS: BP 142/60; PULSE 75; O2SAT 96; BMI 36.5
--- NOTE | 2025-03-03 10:29 | A.OFFVIS_ITS ---
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 She was on Eliquis for many years. She was able to titrate down to 2.5 mg twice a day and subsequently couple years ago she stop the anticoagulation altogether. the patient has not had any recurrent clots thank Goodness. In the meantime she continues to be stable on her current respiratory regimen which includes Breo 100 and also has been using Singulair. The patient does have significant glaucoma and therefore she is wondering about the use of steroids in her inhaler. I did reassure her that the dose of steroids at the inhaler is very small and should not affect her glaucoma she will continue monitoring closely of pressures with her buckle stringer. In addition to that will avoid any anticholinergic therapy to avoid further worsening of glaucoma. We did review her last CT scan of the chest was back in 2019 at [facility] demonstrating stable areas interstitial changes and reticular changes that he has had. She has been on methotrexate for many years but does not appear to have any acute worsening of the interstitial fibrosis time. She has not had any worsening symptoms either. A plan to do a chest x- ray that she can have in order to assess for any progression of disease. If the x-ray is not helpful she will need another CT scan. in addition the patient has been having significant amount of headaches. The headaches can be pretty severe. She does characterize months migraines. Typically worse in the morning. She also has nightmares and also episodes of dizziness. She has been evaluated by Neurology in the past. It appears that she does have an elevated [place] score of 11/24. The patient also has cardiovascular risk factors. At this point I will request a home sleep study to better address to see if there is any sleep apnea that needs to be treated and hopefully improve her quality of life. The patient has been struggling also was psoriasis. She is working with her insurance company in order to get better medication coverage to be able to treat her psoriasis that is very uncomfortable for her. 12/29/2021 the patient is here for a pulmonary follow-up visit. Overall the patient continues to do well. Denies any significant leg swelling or pain. Now she has been without the Eliquis for many years and still doing very well which is reassuring. The patient still having headaches. Did have her undergo a home sleep study demonstrating no evidence of any sleep apnea and no real significance of hypoxia. Her pulse ox did drop to 85% but only spent about 8 minute below 88%. In addition to that the patient did have an increased heart rate up to 155 while sleeping. This may have been artifact but if not should be further evaluated. Patient also had a chest x-ray sometime in September 2019 to when she was here last and was without any acute disease. She is continue with respiratory therapy. She will be following up with her neurologist regarding headaches. In the meantime she is also using methotrexate for her connective tissue conditions. Appears to be tolerating it well without any pulmonary adverse effects. 06/25/22 The patient is here for a pulmonary follow up visit. The patient is complaining of having sores on her tongue. She was diagnosed with thrush and provided nystatin rinse. But no mprovement. She has been using the Breo inhaler. Her breathing is otherwise good. Also, recently, she went to the ED with hypertensive urgency. She was started on 2 new BP meds. I did look at her tongue, but does not look like thrush. Appears to be ulcerations with swelling. 07/19/2022 the patient is here for a pulmonary follow-up visit. Overall she is doing better. The mouth sores have improved. Although is still a little uncomf ortable. She has completed all the antifungal therapies. She also completed the antimicrobial therapy. She also stop the Breo. She has not had to use her rescue inhaler. Her blood pressure now is better. She is sleeping well. She is gaining weight however. She needs to follow-up with her primary care doctor regarding the issues with her weight gain. She understands that with her history sleep apnea the weight gain can resulting worsening daytime drowsiness and also worsening sleep apnea. 01/18/2023 the patient is here for pulmonary follow-up visit. She still complains of her discomfort due to her tongue inflammation. She has been treated for fungal infections again without any significant improvement. To me does not appear to have any thrush. Also complaining of sore throat. Does have some erythema in the back of the throat. Has tried mouthwash in addition to salt rinses. Again, will provide with the magic mouthwash just to provide some relief of the discomfort. In the meantime she can try doxycycline to see if this helps treat any bacterial pharyngitis. If the patient is doing better she can try a course of fluconazole again. She does have an appointment with ENT. They can better address the abnormalities of her tongue in adjacent areas in the meantime she does have a rescue inhaler that she has not required. We had discontinued her steroid inhaler to minimize any irritation of the upper airway. 03/03/2025 the patient is here for pulmonary follow-up visit. Overall the patient is doing okay although she did have the flu back last month and then she did go to the ER for that. It did activate her asthma. She was given prednisone and given her respiratory inhalers. In the meantime she did follow- up with the surgery. Her biopsies were negative for cancer. She does have significant wheezing on exam. She is concerned about using inhaled steroids because of the irritation already she has a to the palate. The patient understands that she needs to take some degree of inhaled steroids. I did provide her with a spacer sent to the pharmacy in order for her to start the Symbicort. In the meantime she does have significant wheezing. I did give her a nebulizer treatment with Xopenex which she tolerated. She has not tolerated albuterol in the past. Therefore, will go ahead and request a nebulizer for her and also give him Xopenex that she can use twice a day. She will start tapering down the prednisone that she is taking 50 mg right now and will send her an antibiotic as well to treat her for postviral bacterial infections. The patient also may be a candidate for biologics specially since she has a hard time tolerating multiple inhalers. Will go ahead and request blood work in case this is an allergic process and she will benefit from biologic therapy. The patient will return in 4-6 weeks if she has any issues she can always call for further recommendations. [facility] Medical History (Updated 03/03/25 @ 11:13 by Luke Hernandez MD) Allergies Hypertension Lumbar radiculopathy Seizure disorder Anxiety disorder Candidiasis Pulmonary embolism, bilateral Psoriasis Asthma Psoriasis Pulmonary scarring Frequent headaches Social History Alcohol intake: never Patient Tobacco Use Status: Never used Tobacco Review of Systems Const Denies fever(s) Eyes Denies change in vision ENT Denies change in voice, Denies vertigo, Reports dizziness, Denies mouth lesions and Denies mouth pain Card Denies chest pain and Denies palpitations Resp Denies cough and Denies wheezing GI Reports no additional complaints Musc Reports no additional complaints Skin/Breast Reports rash Neuro Denies vertigo and Reports dizziness Endo Denies palpitations Aller/Immun Denies wheezing Physical Exam Vital Signs: Last Vital Signs Pulse 75 03/03/25 10:29 BP 142/60 H 03/03/25 10:29 Pulse Ox 96 03/03/25 10:29 Oxygen Delivery Method Room Air 03/03/25 10:29 BMI result Body Mass Index 36.5 Const General: comfortable HEENT Head: Yes normal to inspection Mouth: tongue abnormal elevated, geographic, ulcerated, discolored and with lesion noted; without any white coating and not hairy Neck Neck: Yes supple Chest Chest palpation & inspection: normal inspection of the chest Resp Effort & Inspection: normal respiratory effort Auscultation: clear to auscultation bilaterally Cardio Rate: regular rate Rhythm: regular rhythm Heart sounds: S1 normal heart sound present and S2 normal heart sound present GI Auscultation: normal bowel sounds Skin General skin exam: no rashes or lesions noted Extrem General: Yes no clubbing, cyanosis or edema Office Procedures Nebulizer Treatment Nebulizer Treatment [id number] RX initial, or Nebulizer Subsequent Treatment Office Meds levalbuterol HCl 1.25 mg/3 mL solution for nebulization Performing Provider: Luke Hernandez MD Performing Location: [facility] Pulmonology Services Administered by: Maricruz Maki LPN on 03/03/25 11:08 Dose Route Admin Location Dispensed Lot Number Expiration Date NDC Casual Shoe Inspector 1.25 mg inhalation 3 mL [id number] 12/03/26 49426-407-29 [employer] Assessment & Plan Assessment & Plan (1) Asthma: Code(s): J45.909 - Unspecified asthma, uncomplicated Category: Medical Qualifiers: Asthma severity: moderate Asthma persistence: persistent Asthma complication type: uncomplicated Qualified Code(s): J45.40 - Moderate persistent asthma, uncomplicated (2) Pulmonary scarring: Comment: CXR 09/27 was reassuring Code(s): J98.4 - Other disorders of lung Category: Medical (3) Pharyngitis: Code(s): J02.9 - Acute pharyngitis, unspecified Category: Medical Qualifiers: Pharyngitis/tonsillitis etiology: unspecified etiology Qualified Code(s): J02.9 - Acute pharyngitis, unspecified (4) 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 Category: Medical (5) Allergies: Code(s): T78.40XA - Allergy, unspecified, initial encounter Category: Medical Plan short-acting beta agonist as needed, patient responds better to Ventolin no anticholinergics due to her glaucoma Fluticasone nasal spray stopped Claritin hold singulair ENT eval pending F/U 6 months Orders: Orders AMB Nebulizer Treatment Today J45.40 - Moderate persistent asthma, uncomplicated Immunoglobulin E Today J45.40 - Moderate persistent asthma, uncomplicated, T78.40XA - Allergy, unspecified, initial encounter Erythrocyte Sedimentation Rate Today J45.40 - Moderate persistent asthma, uncomplicated, T78.40XA - Allergy, unspecified, initial encounter Complete Blood Count Auto Diff Today J45.40 - Moderate persistent asthma, uncomplicated, T78.40XA - Allergy, unspecified, initial encounter Immunoglobulins,IgG IgA IgM Today J45.40 - Moderate persistent asthma, uncomplicated, T78.40XA - Allergy, unspecified, initial encounter Resp Allergy Profile Region I Today J45.40 - Moderate persistent asthma, uncomplicated, R91.1 - Solitary pulmonary nodule, T78.40XA - Allergy, unspecified, initial encounter Medications: New inhalational spacing device (Aerochamber MV spacer) As directed 1 ea 0RF levalbuterol HCl 1.25 mg (3 mL) inhalation BID 180 mL 0RF 30 days J44.9 - Chronic obstructive pulmonary disease, unspecified prednisone PO daily; Take 3 tabs x 3 days, then 2 tabs daily x 3 days, then 1 tab x 3 days to complete. 18 tabs 0RF 18 days doxycycline hyclate 100 mg PO BID 20 caps 0RF 10 days Discontinued montelukast Discontinued Reason: Doctor's Order 10 mg PO DAILY 30 tabs 11RF J45.909 - Unspecified asthma, uncomplicated Coding Diagnoses Moderate persistent asthma without complication J45.40 Asthma severity: moderate Asthma persistence: persistent Asthma complication type: uncomplicated Pulmonary scarring J98.4 Pharyngitis, unspecified etiology J02.9 Pharyngitis/tonsillitis etiology: unspecified etiology Tongue abnormality Q38.3 Allergies T78.40XA CPT Codes Nebulizer Treatment - Nebulizer Treatment, initial or subsequent: 89112- Nebulizer/MDI RX initial, or Nebulizer Subsequent Treatment ([id number])
--- OUTSIDE RECORDS SUMMARY | 2025-03-03 12:26 | XMS_ITS | Encounter Summary ---
Author Organization [employer] Address [address] [place] [address] Care Team Providers Care Superintendent Warehouse Name Role Phone Unavailable Primary Care Provider Unavailabl e Encounter Details Date Type Department Care Team ([facility] st Contact Info) Description 12/18/2022 Abstract [facility] [address] [place] [address] [facility] [address] [place] [address] Social History Tobacco Use Types Packs/Day Years [...]
--- OUTSIDE RECORDS SUMMARY | 2025-03-03 12:26 | XMS_ITS | Clinical Summary ---
Author Organization [facility] Address [address] [place] [address] Phone Care Team Providers Care Log Cut Off Sawyer Name Role Phone Rosie Salgado MD Primary Care Provider Allergies Active Allergy Reactions Criticality Noted Date Comments Iodinated Contrast Media 04/17/2016 Shortness of breath Other Hives,Runny nose 10/01/2013 Seafood Seasonal Medications acetaminophen (TYLENOL) 500 mg tablet HISTORIC 01/11/20 20 Active latanoprost (XALATAN) 0.005 % ophthalmic solution at bedtime. 01/15/20 22 Active LORazepam (ATIVAN) 1 mg tablet Take 1 tablet (1 mg total) by mouth 1 (one) time each day. 12/24/19 20 Active multivitamin tablet Take 1 tablet by mouth 1 (one) time each day. Active montelukast (SINGULAIR) 10 mg tabletIndicatio ns:Medicare annual wellness visit, subsequent,Prim regla hypertension,Mi xed hyperlipidemia, Age-related osteoporosis without current pathological fracture,Chroni c anxiety,Open-an gle glaucoma, unspecified glaucoma stage, unspecified laterality, unspecified open-angle glaucoma type,History of colon polyps,Cognitiv e impairment Take 1 tablet (10 mg total) by mouth at bedtime. Historic 90 tablet 2 09/22/19 25 Active atorvastatin (LIPITOR) 10 mg tabletIndicatio ns:Medicare annual wellness visit, subsequent,Prim regla hypertension,Mi xed hyperlipidemia, Age-related osteoporosis without current pathological fracture,Chroni c anxiety,Open-an gle glaucoma, unspecified glaucoma stage, unspecified laterality, unspecified open-angle glaucoma type,History of colon polyps,Cognitiv e impairment Take 1 tablet (10 mg total) by mouth at bedtime. 90 tablet 2 09/22/19 25 Active losartan (COZAAR) 50 mg tabletIndicatio ns:Medicare annual wellness visit, subsequent,Prim regla hypertension,Mi xed hyperlipidemia, Age-related osteoporosis without current pathological fracture,Chroni c anxiety,Open-an gle glaucoma, unspecified glaucoma stage, unspecified laterality, unspecified open-angle glaucoma type,History of colon polyps,Cognitiv e impairment Take 1 tablet (50 mg total) by mouth 1 (one) time each day. 90 tablet 2 09/22/19 25 Active hydroCHLOROthia zide (HYDRODIURIL) 25 mg tabletIndicatio ns:Medicare annual wellness visit, subsequent,Prim regla hypertension,Mi xed hyperlipidemia, Age-related osteoporosis without current pathological fracture,Chroni c anxiety,Open-an gle glaucoma, unspecified glaucoma stage, unspecified laterality, unspecified open-angle glaucoma type,History of colon polyps,Cognitiv e impairment Take 1 tablet (25 mg total) by mouth 1 (one) time each day. 90 tablet 2 09/22/19 25 Active albuterol HFA (PROAIR HFA ; PROVENTIL HFA ; VENTOLIN HFA) 90 mcg/actuation inhalerIndicati ons:Medicare annual wellness visit, subsequent,Prim regla hypertension,Mi xed hyperlipidemia, Age-related osteoporosis without current pathological fracture,Chroni c anxiety,Open-an gle glaucoma, unspecified glaucoma stage, unspecified laterality, unspecified open-angle glaucoma type,History of colon polyps,Cognitiv e impairment INHALE 2 PUFFS BY MOUTH EVERY 4 HOURS NEEDED FOR FOR SHORTNESS OF BREATH (BULK) 25.5 g 1 11/14/19 25 Active meclizine (ANTIVERT) 25 mg tabletIndicatio ns:Medicare annual wellness visit, subsequent,Prim regla hypertension,Mi xed hyperlipidemia, Age-related osteoporosis without current pathological fracture,Chroni c anxiety,Open-an gle glaucoma, unspecified glaucoma stage, unspecified laterality, unspecified open-angle glaucoma type,History of colon polyps,Cognitiv e impairment Take 1 tablet (25 mg total) by mouth 3 (three) times a day if needed for dizziness. 270 tablet 01/15/20 25 Active meloxicam (MOBIC) 7.5 mg tablet 12/14/19 25 Active chlorhexidine (PERIDEX) 0.12 % solution Use 15 mL in the mouth or throat 1 (one) time each day. 473 mL 02/23/20 25 Active zoledronic acid 4 mg recon soln Infuse into a venous catheter. Active budesonide-form oteroL (SYMBICORT) 80-4.5 mcg/actuation inhaler Inhale 2 puffs by mouth 2 (two) times a day. Rinse mouth with water after use to reduce aftertaste and incidence of candidiasis. Do not swallow. 1 each 2 02/23/20 Active predniSONE (DELTASONE) 50 mg tablet Take 1 tablet (50 mg total) by mouth 1 (one) time each day for 5 days. 5 each 02/28/20 25 2024 Active amoxicillin (AMOXIL) 500 mg capsule Take 4 capsules (2,000 mg total) by mouth. HISTORIC 1 HOUR BEFORE DENTAL APPOINTMENT 01/10/20 24 2024 Discontinued diclofenac (VOLTAREN) 1 % topical gel Apply 4 g topically 3 (three) times a day. 09/26/19 24 2024 Discontinued alendronate (FOSAMAX) 70 mg tablet TAKE ONE TABLET BY MOUTH EVERY 7 DAYS (BULK) 4 tablet 5 10/20/19 25 2024 Discontinued chlorhexidine (PERIDEX) 0.12 % solution Use 15 mL in the mouth or throat 1 (one) time each day. 473 mL 01/15/20 25 2024 Discontinued(R eorder) Active Problems Problem Noted Date Diagnosed Date Pelvic pain in female 08/24/2024 Assessment & Plan (08/24/2024 1:45 PM EDT): I reassured Nohemy that there is no evidence of Time Study Statistician cause of her pain. I recommended she [...] Future Anxiety 02/18/2024 Overview (02/18/2024): Follows at [facility] Cerebral AV malformation 02/18/2024 Chronic headaches [...] Assessment & Plan (09/21/2024 11:35 AM EDT): Nahomy Gentile. On zolendronic acid infusions. Orders: albuterol HFA [...] apnea. 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 Encounters Date Type Department Care Team Description 02/27/2025 2:10 AM EST - 02/27/2025 3:47 AM EST Emergency [facility] Emergency [address] [place] [address] Omar Gaston MD Mild intermittent asthma with exacerbation (Primary Dx); Influenza A Discharge Disposition: Home or Self Care 02/22/2025 2:30 PM EST Office Visit Adult [address] [phone] Austin Mireles PA Mild persistent asthma, unspecified whether complicated (Primary Dx); Primary hypertension; Osteoporosis, unspecified osteoporosis type, unspecified pathological fracture presence; Hyperlipidemia, unspecified hyperlipidemia type; Immunization due 01/19/2025 Telephone Adult [address] [phone] Rosie Salgado MD 01/14/2025 11:00 AM EDT Office Visit Adult [address] [phone] Sana Sparks MD Upper respiratory tract infection, unspecified type (Primary Dx) 01/14/2025 Telephone Adult [address] [phone] Rosie Salgado MD 01/14/2025 Telephone Adult [facility] [address] [place] [address] Rosie Salgado MD from Last 3 Months Immunizations Immunization Administration Dates Next Due Influenza Quadravalent, MDCK , 0.5ml, preservative free (Flucelvax) 6mo and older 02/25/2018 Influenza Quadravalent, MDCK , 0.5ml, with preservative (Flucelvax) 6mo and older 12/14/2016 Influenza trivalent, 0.5mL ( Fluad) 65yo and older 02/22/2025,01/13/2024,01/09/2023,12/20,01/05/2020 Influenza trivalent, 0.5mL ( Fluzone High-dose) 65yo [...] Date Site/Laterality Comments OTHER SURGICAL HISTORY PROCEDURE: FL TRNSRL SKUL BSE/BR STM/CORD BX/DCMP/ SPLT TONGUE; COMMENT: done in 1980 at [facility] done by Dr Warren BREAST BIOPSY Right [...] Mass Index 37.37 02/27/2025 1:01 AM EST Plan of Treatment Upcoming Encounters Date Type Department Care Team (Late st Contact Info) Description 03/05/2025 11:45 AM EST Appointment [facility] Pulmonary [address] [place] [phone] 09/23/2025 11:00 AM EDT Office Visit Adult Medicine - [address] [phone] Rosie Salgado MD [address] [place] [phone] Health Maintenance Due Date Last Done Comments RSV Immunization Adult Patients (1 - Risk 50-74 years 1-dose series) 2002 Zoster Vaccines (1 of 2) 08/18/2013 06/23/2013 Social Influencers of Health Screening 03/17/2022 COVID-19 Vaccine (3 - season) 2024 05/04/2021, 07/06/2020 Falls Risk Assessment 09/21/2025 09/21/2024 Medicare Annual Wellness Visit 09/21/2025 09/21/2024 Colorectal Cancer Screening: Colonoscopy 11/11/2025 11/11/2020 Hypertension/CHF/CAD Annual BMP Blood Test 02/27/2026 02/27/2025, 07/21/2024, 05/15/2024, Additional history exists Breast Cancer Screening 08/10/2026 08/11/19, 08/05/2023, 08/05/2023, Additional history exists DTaP,Tdap,and Td Vaccines (2 - Td or Tdap) 11/06/2026 11/06/2016 Cholesterol Screening (Lipid Panel) 05/15/2029 05/15/2024, 12/03/2022 Osteoporosis Screening (Bone Density Screening) 02/22/2030 02/23/2020, 10/14/2017 Hepatitis C Screening Completed 10/27/2020 Pneumococcal Vaccine: 50+ Years Completed 12/21/2020, 07/15/2017, 04/20/2015 Depression Screening Completed 09/21/2024, 07/03/19 24 Influenza Vaccine Completed 02/22/2025, , 01/09/2023, Additional history exists HIB Vaccines Aged Out No longer eligi [...] AUTO DIFFERENTIAL STAT 02/27/2025 2:18 AM EST B-TYPE NATRIURETIC PEPTIDE STAT 02/27/2025 2:18 AM EST BASIC METABOLIC PANEL STAT 02/27/2025 2:18 AM EST CBC AND DIFFERENTIAL STAT 02/27/2025 2:18 AM EST XR CHEST 2 VIEWS STAT 02/27/2025 1:14 AM EST RESPIRATORY VIRUS PANEL MOLECULAR STUDY STAT 02/27/2025 1:04 AM EST MG MAMMO DIGITAL SCREENING W ANTONIO BILAT Routine 08/10/2024 1:15 PM EDT Encounter for screening mammogram for breast cancer LIPID PANEL WITH REFLEX TO DIRECT LDL [...] Recently Relevant to Health Maintenance Results * (ABNORMAL) CBC auto differential (02/27/2025 2:18 AM EST) WBC 6.6 4.8 - 10.8 K/mcL LAB HEMETOLOGY METHOD 02/27/2025 2:[address] [facility] RBC 3.80 3.80 - 4.80 M/mcL LAB HEMETOLOGY METHOD 02/27/2025 2:[address] [facility] Hemoglobin 11.2(L) 11.5 - 16.0 g/dL LAB HEMETOLOGY METHOD 02/27/2025 2:[address] [facility] Hematocrit 35.7 35.0 - 47.0 % LAB HEMETOLOGY METHOD 02/27/2025 2:[address] [facility] MCV 93.5 79.0 - 98.0 FL LAB HEMETOLOGY METHOD 02/27/2025 2:[address] [facility] MCH 29.3 27.0 - 32.0 pcg LAB HEMETOLOGY METHOD 02/27/2025 2:[address] [facility] MCHC 31.4(L) 32.0 - 37.0 g/dL LAB HEMETOLOGY METHOD 02/27/2025 2:[address] [facility] RDW 12.9 11.0 - 15.0 % LAB HEMETOLOGY METHOD 02/27/2025 2:[address] [facility] Platelets 241 130 - 400 K/mcL LAB HEMETOLOGY METHOD 02/27/2025 2:[address] [facility] MPV 10.7 7.0 - 11.0 FL LAB HEMETOLOGY METHOD 02/27/2025 2:[address] [facility] NRBC 0.0 <1.0 % LAB HEMETOLOGY METHOD 02/27/2025 2:[address] [facility] NRBC Absolute 0.00 <0.10 K/mcL LAB HEMETOLOGY METHOD 02/27/2025 2:[address] [facility] Neutrophils Relative 67.8 % LAB HEMETOLOGY METHOD 02/27/2025 2:[address] [facility] Lymphocytes Relative 12.7 % LAB HEMETOLOGY METHOD 02/27/2025 2:[address] [facility] Monocytes Relative 14.7 % LAB HEMETOLOGY METHOD 02/27/2025 2:[address] [facility] Eosinophils Relative 4.0 % LAB HEMETOLOGY METHOD 02/27/2025 2:[address] [facility] Basophils Relative 0.6 % LAB HEMETOLOGY METHOD 02/27/2025 2:[address] [facility] Immature Granulocytes Relative 0.2 % LAB HEMETOLOGY METHOD 02/27/2025 2:[address] [facility] Neutrophils Absolute 4.45 1.50 - 7.00 K/mcL LAB HEMETOLOGY METHOD 02/27/2025 2:[address] [facility] Lymphocytes Absolute 0.83(L) 1.00 - 5.00 K/mcL LAB HEMETOLOGY METHOD 02/27/2025 2:[address] [facility] Monocytes Absolute 0.96 0.20 - 1.00 K/mcL LAB HEMETOLOGY METHOD 02/27/2025 2:[address] [facility] Eosinophils Absolute 0.26 0.00 - 0.50 K/mcL LAB HEMETOLOGY METHOD 02/27/2025 2:[address] [facility] Basophils Absolute 0.04 0.00 - 0.20 K/mcL LAB HEMETOLOGY METHOD 02/27/2025 2:[address] [facility] Immature Granulocytes Absolute 0.01 0.00 - 0.03 K/mcL LAB HEMETOLOGY METHOD 02/27/2025 2:[address] [facility] Blood Venous blood specimen / Unknown Venipuncture / Unknown 02/27/2025 2:18 AM EST 02/27/2025 2:25 AM EST Job [facility] LAB BLOOD ORDERABLES Final Result Performing Organization Address [facility]/ZIP Co de Phone Number [facility] [address] [place] [address], [place] [phone] * B-type natriuretic peptide (02/27/2025 2:18 AM EST) BNP 53 <=100 pcg/mL 02/27/2025 2:50 AM EST [facility] Blood Venous blood specimen / Unknown Venipuncture / Unknown 02/27/2025 2:18 AM EST 02/27/2025 2:25 AM EST Narrative [facility] - 02/27/2025 2:50 AM EST Over the counter supplements containing high doses of biotin may interfere with this assay. If interference is suspected, patients shoud be retested after refraining from biotin supplements for 72 hours. [facility] LAB BLOOD ORDERABLES Final Result Performing Organization Address [facility]/ZIP Co de Phone Number [facility] [address] [place] [address], [place] [phone] * (ABNORMAL) Basic metabolic panel (02/27/2025 2:18 AM EST) Pathologist [facility] Sodium 141 133 - 145 mmol/L 02/27/2025 2:57 AM EST [facility] Potassium 4.2 3.5 - 5.5 mmol/L 02/27/2025 2:57 AM EST [facility] Chloride 104 96 - 110 mmol/L 02/27/2025 2:57 AM EST [facility] CO2 29 21 - 32 mmol/L 02/27/2025 2:[address] [facility] Anion Gap 8 3 - 11 02/27/2025 2:57 AM EST [facility] Glucose 99 70 - 100 mg/dL 02/27/2025 2:[address] [facility] BUN 21 5 - 25 mg/dL 02/27/2025 2:[address] [facility] Creatinine 1.14(H) 0.50 - 1.10 mg/dL 02/27/2025 2:[address] [facility] eGFR 51(L) >=60 mL/min/1. 73m2 02/27/2025 2:[address] [facility] Comment:Calculation based on the Chronic Kidney Disease Epidemiology Collaboration (CKD-EPI) equation refit without adjustment for race. BUN/Creatinine Ratio 18.4 02/27/2025 2:[address] [facility] Calcium 8.1(L) 8.5 - 10.5 mg/dL 02/27/2025 2:[address] [facility] Blood Venous blood specimen / Unknown Venipuncture / Unknown 02/27/2025 2:18 AM EST 02/27/2025 2:25 AM EST [facility] LAB BLOOD ORDERABLES Final Result [facility] [address] [place] [address], * XR Chest 2 Views (02/27/2025 1:14 AM EST) Anatomical Region Laterality Modality Body Radiographic Ana M ging 02/27/2025 8:52 AM EST Impressions 02/27/2025 8:53 AM EST No acute findings. -------- FINAL REPORT -------- Dictated By: Jt Dong Dictated Date: 02/27/2025 08:52 ET Assigned Physician: Jt Dong Reviewed and Electronically Signed By: Jt Dong Signed Date: 02/27/2025 08:53 ET Workstation ID: [id number] Transcribed By: Self Edit Transcribed Date: 02/27/2025 [...] Signed Date: 02/27/2025 08:53 ET Workstation ID: [id number] Transcribed By: Self Edit Transcribed Date: 02/27/2025 08:52 ET Job [facility] IMG XR PROCEDURES Final Res ult * (ABNORMAL) Respiratory virus panel molecular study (02/27/2025 1:04 AM EST) Adenovirus Detection by PCR Not Detected Not Detected LAB MICROBIOLOGY METHOD 02/27/2025 2:15 AM EST [facility] Influenza B PCR Not Detected Not Detected LAB MICROBIOLOGY METHOD 02/27/2025 2:[address] [facility] Coronavirus 229E Not Detected Not Detected LAB MICROBIOLOGY METHOD 02/27/2025 2:15 AM EST [facility] Coronavirus HKU1 Not Detected Not Detected LAB MICROBIOLOGY METHOD 02/27/2025 2:[address] [facility] Coronavirus OC43 Not Detected Not Detected LAB MICROBIOLOGY METHOD 02/27/2025 2:[address] [facility] Coronavirus NL63 Not Detected Not Detected LAB MICROBIOLOGY METHOD 02/27/2025 2:[address] [facility] Parainfluenza Virus 1 Not Detected Not Detected LAB MICROBIOLOGY METHOD 02/27/2025 2:[address] [facility] Parainfluenza Virus 2 Not Detected Not Detected LAB MICROBIOLOGY METHOD 02/27/2025 2:[address] [facility] Parainfluenza Virus 3 Not Detected Not Detected LAB MICROBIOLOGY METHOD 02/27/2025 2:[address] [facility] Parainfluenza Virus 4 Not Detected Not Detected LAB MICROBIOLOGY METHOD 02/27/2025 2:[address] [facility] RSV PCR Not Detected Not Detected LAB MICROBIOLOGY METHOD 02/27/2025 2:[address] [facility] Human Metapneumovirus A and B Not Detected Not Detected LAB MICROBIOLOGY METHOD 02/27/2025 2:[address] [facility] Rhinovirus/Entero virus Not Detected Not Detected LAB MICROBIOLOGY METHOD 02/27/2025 2:[address] [facility] Bordetella pertussis Not Detected Not Detected LAB MICROBIOLOGY METHOD 02/27/2025 2:[address] [facility] Bordetella parapertussis Not Detected Not Detected LAB MICROBIOLOGY METHOD 02/27/2025 2:[address] [facility] Influenza A H1N1 PDM09 Detected(A ) Not Detected LAB MICROBIOLOGY METHOD 02/27/2025 2:[address] [facility] Mycoplasma pneumo by PCR Not Detected Not Detected LAB MICROBIOLOGY METHOD 02/27/2025 2:[address] [facility] Chlamydia pneumoniae Not Detected Not Detected LAB MICROBIOLOGY METHOD 02/27/2025 2:[address] [facility] SARS COV-2 Not Detected Not Detected LAB MICROBIOLOGY METHOD 02/27/2025 2:15 AM EST [facility] Swab Both anterior nares / Unknown Non-blood Collection / Unknown 02/27/2025 1:04 AM EST 02/27/2025 1:18 AM EST Narrative [facility] - 02/27/2025 2:15 AM EST Testing was performed using the [employer] Respiratory Pathogen PCR Assay. All results must [...] LAB MICROBIOLOGY - GENERAL ORDERABLES Final Result [facility] [address] [place] [address], * MG Mammo Digital Screening w Antonio bilat (08/10/2024 1:15 PM EDT) Anatomical Region Laterality Modality Breast Bilateral Mammography 08/11/2024 7:25 AM EDT Impressions 08/11/2024 7:33 AM EDT Benign. BI-RADS CATEGORY: 1 - NEGATIVE RECOMMENDATION: Screening bilateral mammogram is recommended in 1 year. Mammo Location: [facility], [address] [place] [address], [id number], . -------- FINAL REPORT -------- Dictated By: Zenaida Rapp Dictated Date: 08/11/2024 07:25 ET Assigned Physician: Zenaida Rapp Reviewed and Electronically Signed By: Zenaida Rapp Signed Date: 08/11/2024 07:33 ET Workstation ID: [id number] Transcribed By: Self Edit Transcribed Date: 08/11/2024 [...] is recommended in 1 year. Mammo Location: [facility], [address] [place] [address], [address], . -------- FINAL REPORT -------- Dictated By: Zenaida Rapp Dictated Date: 08/11/2024 07:25 ET Assigned Physician: Zenaida Rapp Reviewed and Electronically Signed By: Zenaida Rapp Signed Date: 08/11/2024 07:33 ET Workstation ID: [id number] Transcribed By: Self Edit Transcribed Date: 08/11/2024 07:25 ET Rosie Salgado MD IMG BI PROCEDURES Quynh l Result * (ABNORMAL) Lipid panel with reflex to direct LDL (05/15/2024 1:23 PM EST) [facility] Cholesterol 159 0 - 200 mg/dL LAB CHEMISTRY METHOD 05/15/2024 2:57 PM EST [facility] Triglycerides 212(H) 0 - 150 mg/dL LAB CHEMISTRY METHOD 05/15/2024 2:57 PM EST [facility] HDL 50 >=40 mg/dL LAB CHEMISTRY METHOD 05/15/2024 2:57 PM EST [facility] LDL Calculated 67 0 - 100 mg/dL LAB CHEMISTRY METHOD 05/15/2024 2:57 PM EST [facility] VLDL Cholesterol Bj 42.4 mg/dL LAB CHEMISTRY METHOD 05/15/2024 2:57 PM EST [facility] Non HDL Chol. (LDL+VLDL) 109 <145 mg/dL LAB CHEMISTRY METHOD 05/15/2024 2:57 PM EST [facility] Chol/HDL Ratio 3.2 0.0 - 4.4 LAB CHEMISTRY METHOD 05/15/2024 2:57 PM EST [facility] Blood Venous blood specimen / Unknown Venipuncture / Unknown 05/15/2024 1:23 PM EST 05/15/2024 1:23 PM EST us Rosie Salgado MD LAB BLOOD ORDERABLES F inal Result [facility] [address] [place] [address], [place] [phone] * Depression Screening (07/03/2023) Pathologist [facility] Depression Screening abstracted Historical Provider HEALTH MAINTENANCE Final Result * Colonoscopy (11/11/2020) Pathologist [facility] Colonoscopy abnormal, abstracted Anatomical Region Laterality Modality Other us Historical Provider HEALTH MAINTENANCE Final Result * Hepatitis C Screening (10/27/2020) Hepatitis C Screening abstracted us Historical Provider HEALTH MAINTENANCE Final Result * [...] should be classified as having osteoporosis. [facility] Department of Internal Medicine recommends using National [...] on the World Health Organization criteria, Nohemy I Erick shouldbe classified as having osteoporosis. [facility] Department of Internal Medicine recommendsusing National Osteoporosis [...] or Most Recently Relevant to Health Maintenance Additional Health Concerns Infection Onset Date Last Indicated Influenza 02/27/2025 02/27/2025 Insurance [facility] MEDICARE Member Subscriber Plan / Payer (Ef fective 2022-Present) Name:NOHEMY SUAREZ Relation to Subscriber:Self Name:Nohemy Suarez I Payer ID:[id number] Group ID:[id number] Type:Not on file Address: [facility] [address] [address] Care Teams Log Cut Off Sawyer Relationship Specialty Start Date End Date Rosie Salgado MD [address] [place] [id number] PCP - General Internal Medicine 06/05/21
--- OUTSIDE RECORDS SUMMARY | 2025-03-03 12:26 | XMS_ITS | Clinical Summary ---
Author Organization [employer] Address [address] [place] [address] Care Team Providers Care Scrap Charger Name Role Phone Unavailable Primary Care Provider [...] patient's age to complete this topic Insurance [facility] STANDARD MEDICARE Member Subscriber Plan / Payer (Ef fective 2022-Present) Name:Nohemy Suarez Member ID:[id number] Relation to Subscriber:Self Name:Nohemy Suarez Subscriber ID:[id number] Payer ID:[id number] Group ID:Not on file Type:Medicare Address: [place] [employer] [address] [facility] [address] [place] [phone]
== END 2025-03-03 11:24 | disposition home or self-care (01) ==
LOC: HO.HPS 10:28
PROVIDERS: PCP Internal Medicine; Visit Provider Hospitalist
DX: J45.40 Moderate persistent asthma, uncomplicated (principal)

== ENCOUNTER 2025-03-03 10:27 | Outpatient (REF) | payer OTHER, SELFPAY ==
[2025-03-03 11:54] LABS: MANUAL DIFF FLAG NO
[2025-03-03 12:35] LABS: Hematocrit 34.9 % (37.0-47.0); Hemoglobin 11.2 g/dl (12.0-16.0); Imm Gran Abs Auto 0.03 X10*3/uL (0.00-0.03); Imm Gran Pct Auto 0.3 % (0.0-0.4); Lymphocytes Absolute Auto 2.5 X10*3/uL (1.2-4.9); Mean Corpuscular HGB Conc 32.1 g/dl (31.0-35.0); Mean Corpuscular Hemoglobin 28.9 pg (27.0-33.0); Mean Corpuscular Volume 90.2 fL (80.0-98.0); NRBC Abs Auto 0.000 X10*3/uL (0.0-0.012); NRBC Pct Auto 0.0 /100WBC (0.0-0.2); Platelet Count 251 X10*3/uL (160-400); Red Blood Count 3.87 X10*6/uL (4.20-5.50); White Blood Count 9.3 X10*3/uL (4.8-10.8)
[2025-03-03 13:14] LABS: Erythrocyte Sedimentation Rate 13 MM/HR (0-20)
[2025-03-08 14:54] LABS: Class Alternaria alternata 0; Class Aspergillus fumigatus 0; Class Bermuda Grass 2; Class Birch 4; Class Cat Dander 4; Class Cladosporium herbarum 0; Class Cockroach 3; Class Common Ragweed 4; Class Cottonwood 2; Class Derm. pterony 3; Class Dermatophagoides farinae 3; Class Dog Dander 4; Class Elm 3; Class Maple Box Elder 3; Class Mountain Cedar 3; Class Mouse Urine Protein 0/1; Class Mugwort 2; Class Oak 4; Class Penicillium crysogenum 0; Class Rough Pigweed 1; Class Sheep Sorrel 2; Class Sycamore 2; Class Timothy Grass 2; Class Walnut Tree 3; Class White Ash 3; Class White Mulberry 0/1; D002 - IgE D farinae 12.30 kU/L; E001 - IgE Cat Dander 19.00 kU/L; E005 - IgE Dog Dander 24.00 kU/L; G006 - IgE Timothy Grass 2.32 kU/L; I006-IgE Cockroach, German 3.85 kU/L; M002 - IgE Cladosporium herbar <0.10 kU/L; M003 - IgE Aspergillus fumigat <0.10 kU/L; M006 - IgE Alternaria alternat <0.10 kU/L; T001 IgE Maple/Box Elder 4.42 kU/L; T006 - IgE Cedar, Mountain 13.60 kU/L; T007 - IgE Oak, White 17.60 kU/L; T008 IgE Elm, American 3.76 kU/L; T010 - IgE Walnut 4.51 kU/L; T011 - IgE Maple Leaf Sycamore 2.97 kU/L; T014 - IgE Cottonwood 2.51 kU/L; T015 - IgE Ash, White 4.22 kU/L; T070 - IgE White Mulberry 0.11 kU/L; W001 - IgE Ragweed, Short 44.30 kU/L; W006 - IgE Mugwort 2.02 kU/L; W014 IgE Pigweed, Common 0.64 kU/L; W018 IgE Sheep Sorrel 2.70 kU/L
== END 2025-03-03 10:28 | disposition home or self-care (01) ==
LOC: HO.LAB 10:27
PROVIDERS: Visit Provider Hospitalist
DX: J45.41 Moderate persistent asthma with (acute) exacerbation (principal); T78.40XA Allergy, unspecified, initial encounter; R91.1 Solitary pulmonary nodule; J98.4 Other disorders of lung; J02.9 Acute pharyngitis, unspecified; Q38.3 Other congenital malformations of tongue
CPT/HCPCS: 36415; 82784; 82785; 85025; 85652; 86003; 94640; 99212